=== PATIENT | male | born 1975 | race Caucasian/White ===

== ENCOUNTER 2017-05-30 12:58 | Inpatient (IN) ==
[2017-05-30] MEDS ORDERED: *HR* LORazepam 2 MG/ML VIAL IVP ONE (13:03)
[2017-05-30] MEDS ORDERED: 0.9 % Sodium Chloride 1,000 ML IVC ONE ×2 (13:03→13:40)
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
[2017-05-30 13:17] LABS: Basophils # 0.1 K/mcL (0.0-0.2); Basophils % 0.4 %; Eosinophils # 0.1 K/mcL (0.0-0.6); Eosinophils % 0.8 %; Hematocrit 45.9 % (37.5-50.1); Hemoglobin 14.5 g/dL (12.9-16.9); Immature Granulocytes % 1.4 % (0-4); Lymphocytes # 2.7 K/mcL (0.6-4.6); Lymphocytes % 24.3 %; Mean Corpuscular HGB Conc 31.6 g/dL (31.6-35.5); Mean Corpuscular Hemoglobin 27.8 pg (28.0-33.3); Mean Corpuscular Volume 88.1 fL (83.0-100.0); Mean Platelet Volume 9.2 fL (9.4-12.4); Monocytes # 0.9 K/mcL (0.0-1.3); Monocytes % 7.6 %; Neutrophils # 7.4 K/mcL (1.6-8.9); Platelet Count 211 K/mcL (140-400); Red Blood Count 5.21 M/mcL (4.19-5.50); Red Cell Distribution Width 13.2 % (11.5-14.5); Segmented Neutrophils % 65.5 %
[2017-05-30 13:32] LABS: Alanine Aminotransferase 26 Units/L (0-55); Albumin 4.3 g/dL (3.5-5.0); Albumin/Globulin Ratio 1.3 (1.1-2.2); Alkaline Phosphatase 71 Units/L (38-126); Aspartate Amino Transferase 19 Units/L (5-34); BUN/Creatinine Ratio 13 (6-26); Bilirubin,Total 1.5 mg/dL (0.2-1.2); Blood Urea Nitrogen 25 mg/dL (8-26); Calcium 9.1 mg/dL (8.6-10.8); Carbon Dioxide 24 mEq/L (19-29); Chloride 102 mEq/L (98-109); Globulin 3.3 g/dL (2.4-3.5); Glucose 188 mg/dL (70-99); Osmolality,Calculated 299 (280-300); Potassium 4.3 mEq/L (3.5-4.5); Sodium 140 mEq/L (136-145); Total Protein 7.6 g/dL (6.0-8.3); eGFR For African Americans 48 (> 60); eGFR For Non-African Americans 40 (> 60)
[2017-05-30 13:48] LABS: Acetaminophen < 1.0 mcg/mL (10-30); Ethanol < 10 mg/dL (0-10); Salicylate < 5.0 mg/dL (15-30)
[2017-05-30 14:13] LABS: Bilirubin,Urine Negative (Negative); Blood,Urine Negative (Negative); Clarity,Urine Clear (Clear); Color,Urine Yellow (Yellow); Glucose,Urine (UA) Normal (Normal); Ketones,Urine Negative (Negative); Leukocyte Esterase,Urine Negative (Negative); Nitrite,Urine Negative (Negative); PH,Urine 5.5 pH Units (5.0-8.0); Protein,Urine 30 mg/dL (Neg-Trace); Specific Gravity,Urine 1.029 (1.010-1.025); Urobilinogen,Urine Normal (Normal)
[2017-05-30 14:15] LABS: Bacteria,Urine None Seen per hpf (None-Few); Squamous Epithelial Cell,Urine Many per lpf (None-Few)
[2017-05-30 14:19] LABS: Amphetamine Screen,Urine Positive ng/mL (Cutoff=1000); Barbiturate Screen,Urine Positive ng/mL (Cutoff=200); Benzodiazepines Screen,Urine Positive ng/mL (Cutoff=200); Cannabinoid Screen,Urine Negative ng/mL (Cutoff = 50); Cocaine Screen,Urine Positive ng/mL (Cutoff= 300); Opiate Screen,Urine Positive ng/mL (Cutoff=300); Phencyclidine Screen,Urine Negative ng/mL (Cutoff=25)
--- NOTE | 2017-05-30 14:21 | Emergency Department Note ---
START Narrative - START START: I examined this patient and my medical decision-making was reviewed with the Resident Physician. I agree with the documented findings, disposition and treatment plan as described except to the extent set forth below. 41-year-old male presents emergency room for altered mental status. Initial call was for a possible drug overdose with heroin or fentanyl. Patient later admitted that he been using cocaine overnight. He also had moments of confusion where he would scream out and then stop. His rectal temp was found to be 98 degrees Fahrenheit but I felt this was not done in air as this would not coincide with his picture or presentation. They did place him on a bear hugger as well as warmed IV fluids. His temperature did normalize. Workup is still pending at this time. Patient will need to be admitted to the hospital. Critical care time approximately 35 minutes. Time spent in medical management as well as workup of this patient who presented with altered mental status and hypothermia.
[2017-05-30 14:33] LABS: Granular Casts,Urine Few per lpf (None Seen); Hyaline Casts,Urine Moderate per lpf (None-Few); Mucus,Urine Many (Few)
[2017-05-30 14:34] LABS: Thyroid Stimulating Hormone 2.482 mcIU/mL (0.350-4.840)
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
[2017-05-30] MEDS ORDERED: Naloxone 0.4 MG/ML INJ IVP PRN (16:43)
[2017-05-30] MEDS ORDERED: Ondansetron 4 MG/2 ML VIAL IVP PRN (16:43)
[2017-05-30] MEDS ORDERED: Acetaminophen 325 MG TABLET PO PRN (16:43)
[2017-05-30] MEDS ORDERED: 0.9 % Sodium Chloride 1,000 ML ONE (16:56)
[2017-05-30] MEDS ORDERED: Vancomycin 1,750 MG in D5% in Water 250 ML IVPB SCH (17:00)
[2017-05-30] MEDS ORDERED: *HR* Metoprolol 5 MG/5 ML VIAL IVP SCH (17:00)
[2017-05-30] MEDS: 0.9 % Sodium Chloride 1,000 ML IVC SCH ×3 (17:06→19:12)
[2017-05-30] MEDS ORDERED: *HR* LORazepam 2 MG/ML VIAL IVP PRN ×3 (18:19)
[2017-05-30 18:28] LABS: Hemoglobin A1C 4.8 %
[2017-05-30] MEDS: Vancomycin 1,750 MG in D5% in Water 500 ML IVPB SCH (19:12)
[2017-05-30] MEDS: *HR* Heparin 5,000 UNIT/ML VIAL SQ SCH (22:09)
[2017-05-30] MEDS ORDERED: *HR* Metoprolol 5 MG/5 ML VIAL IVP PRN (23:47)
[2017-05-31] MEDS: Piperacillin/Tazobactam 3.375 GM in D5% in Water (Mini-Bag+) 100 ML IVPB SCH ×3 (00:04→17:03)
[2017-05-31 01:29] LABS: Basophils % 0.2 %; Eosinophils # 0.1 K/mcL (0.0-0.6); Eosinophils % 0.8 %; Hematocrit 35.8 % (37.5-50.1); Immature Granulocytes % 0.4 % (0-4); Lymphocytes # 2.2 K/mcL (0.6-4.6); Lymphocytes % 19.6 %; Mean Corpuscular HGB Conc 32.1 g/dL (31.6-35.5); Mean Corpuscular Hemoglobin 27.7 pg (28.0-33.3); Mean Corpuscular Volume 86.3 fL (83.0-100.0); Mean Platelet Volume 9.6 fL (9.4-12.4); Monocytes # 1.1 K/mcL (0.0-1.3); Monocytes % 9.5 %; Neutrophils # 7.9 K/mcL (1.6-8.9); Platelet Count 170 K/mcL (140-400); Red Blood Count 4.15 M/mcL (4.19-5.50); Red Cell Distribution Width 13.2 % (11.5-14.5); Segmented Neutrophils % 69.5 %
[2017-05-31 01:31] LABS: Hemoglobin 11.5 g/dL (12.9-16.9)
[2017-05-31 01:42] LABS: Alanine Aminotransferase 16 Units/L (0-55); Albumin/Globulin Ratio 1.2 (1.1-2.2); Alkaline Phosphatase 52 Units/L (38-126); Aspartate Amino Transferase 13 Units/L (5-34); BUN/Creatinine Ratio 16 (6-26); Blood Urea Nitrogen 16 mg/dL (8-26); Calcium 7.8 mg/dL (8.6-10.8); Carbon Dioxide 26 mEq/L (19-29); Chloride 108 mEq/L (98-109); Globulin 2.5 g/dL (2.4-3.5); Glucose 97 mg/dL (70-99); Magnesium 1.9 mg/dL (1.6-2.6); Osmolality,Calculated 289 (280-300); Phosphorous 3.3 mg/dL (2.3-4.7); Potassium 3.8 mEq/L (3.5-4.5); Sodium 139 mEq/L (136-145); eGFR For African Americans > 60 (> 60); eGFR For Non-African Americans > 60 (> 60)
[2017-05-31 01:43] LABS: Total Protein 5.5 g/dL (6.0-8.3)
[2017-05-31] MEDS: Vancomycin 1,750 MG in D5% in Water 500 ML IVPB SCH ×2 (05:56→17:03)
[2017-05-31] MEDS: *HR* Heparin 5,000 UNIT/ML VIAL SQ SCH (05:56)
[2017-05-31] MEDS: Pantoprazole 40 MG VIAL IVP SCH (08:15)
--- NOTE | 2017-05-31 08:16 | Pulmonology Consult Note ---
Date of Encounter: 05/31/17 Time of Encounter: 08:15 Assessment and Plan (1) Hypotension Current Visit: Yes Status: Acute 41-year-old gentleman admitted after drug overdose with hypotension which is likely a manifestation of Lyme depletion along with A. fib with RVR. I do not think this represents shock physiology and doubt that it is related to acute infection. On my examination in the room, his mean arterial pressure was 71 with blood pressure 112/70 he remains in A. fib but was rate controlled when I saw him. His urine tox screen was notable for polysubstances including barbiturates cocaine and amphetamines narcotics clearly this cocktail could precipitate cardiac arrhythmia which I think is the most likely explanation. Concerning however is his consistent use of illicit substances including cocaine do put him at risk for cardiotoxicity and so an echocardiogram is a reasonable study to order at this time. The standpoint of rate control he has been responding to intermittent boluses of beta jameson. I suspect that over the course of the day a low-dose marce blocking agent such as metoprolol could be added to his regimen. From The standpoint of antimicrobials feel that empiric antimicrobial coverage is reasonable I would likely de-escalate over the next 24 hours unless there is culture positive were clear evidence of infection which I do not see based upon his workup thus far. He is on a couple of liters of supplemental nasal cannula O2 which can likely be weaned down to room air as he is currently saturating in the high 90s. This is probably a product of pulmonary edema and atelectasis. His acute kidney injury which was likely secondary to prerenal azotemia has resolved with administration of intravenous fluids. While he still has a fair amount of insensible loss I would be cautious about the continuation of high rate of crystalloid infusion given underlying atrial fibrillation and evidence of pulmonary edema on chest radiograph. Is concerned about intravascular volume depletion I would recommend bolusing crystalloid on an as-needed basis. I recommend chemical DVT prophylaxis while inpatient unless other contraindication arises. He will need a social service consult prior to discharge for determination of inpatient outpatient drug detoxification and development of more positive stress coping skills Currently he is in the stepdown unit and this is an appropriate level of monitoring for his medical acuity and I will defer to the primary medicine service for continuation of excellent management. Thank you for this consult please call back with questions or should change in clinical course arise Qualifiers: Hypotension type: other hypotension type Qualified Code(s): I95.89 - Other hypotension (2) Acute kidney injury Current Visit: Yes Status: Acute (3) Atrial fibrillation with RVR Current Visit: Yes Status: Acute (4) DVT prophylaxis Current Visit: Yes Status: Acute (5) Drug overdose Current Visit: Yes Status: Acute Qualifiers: Encounter type: initial encounter Injury intent: undetermined intent Qualified Code(s): T50.904A - Poisoning by unspecified drugs, medicaments and biological substances, undetermined, initial encounter History of Present Illness Consult date: 05/31/17 Requesting physician: Callum Gonzalez Reason for consult: other (Overdose) Chief complaint: Drug overdose History of present illness: 31-year-old [place] past medical history of polysubstance abuse was found obtunded by his family members charted by drug paraphernalia was given Narcan with some improvement and obtundation he reports to have taken "cocaine" but they have been laced with other drugs. Although he has abused opiates in the past he says he has not been abusing them on a routine basis as of late but has been using Suboxone that he is able to purchase off the [employer] market. On admission was noted to have acute kidney injury and mild elevation in lactate which both of which have resolved after administration of IV fluids he was started on empiric antimicrobial coverage for concern of sepsis noted to be in atrial fibrillation with rapid ventricular response borderline hypotension over the last 12 hours although mean arterial pressure has generally been greater than 60 his urine output remains appropriate he is now awake and alert able to interact with all my examination and he is quite appropriate Past Med Surg Social Fam HX - Past Medical History Medical history: no medical history Psychiatric history: no psych history - Past Surgical History Surgical History: non-contributory - Social History Smoking Status: Never smoker Smokeless Tobacco Status: No Alcohol use: rarely Drug use: none Medications and Allergies No Known Home Drugs 05/30/17 [History] Allergies No Known Allergies Allergy (Verified 05/12/17 17:41) All Systems: A 10-system review of systems was performed and is negative for pertinent findings except as documented above in the HPI. Physical Examination Vital Signs: Vital Signs, Last 4 Hours Temp Pulse Resp BP Pulse Ox 05/31/17 07:40 98.3 F 93 18 103/54 95 General appearance: no acute distress Eyes: nonicteric ENT: oropharynx dry Neck: supple Inspection: normal Auscultation: bilateral: rales Cardiovascular: irregular rhythm Gastrointestinal: normoactive bowel sounds, soft, non-tender Integumentary: normal Extremities: no cyanosis, no edema, no clubbing, pink and warm, no ischemia or petechiae Musculoskeletal: no deformities normal mental status, non-focal exam mood appropriate Results - Laboratory Findings CBC and BMP: 05/31/17 01:00 05/31/17 01:00 Abnormal lab findings: Abnormal lab results WBC 11.3 K/mcL (4.3-11.1) H 05/31/17 01:00 RBC 4.15 M/mcL (4.19-5.50) L 05/31/17 01:00 Hgb 11.5 g/dL (12.9-16.9) L D 05/31/17 01:00 Hct 35.8 % (37.5-50.1) L 05/31/17 01:00 MCH 27.7 pg (28.0-33.3) L 05/31/17 01:00 POC Glucose 152 (58-89) H 05/30/17 13:16 Calcium 7.8 mg/dL (8.6-10.8) L 05/31/17 01:00 Creatine Kinase 222 Units/L (30-200) H 05/30/17 17:21 Troponin I 0.04 ng/mL (0-0.03) H* 05/31/17 05:29 Serum Total Protein 5.5 g/dL (6.0-8.3) L D 05/31/17 01:00 Albumin 3.0 g/dL (3.5-5.0) L D 05/31/17 01:00 Ur Specific [place] 1.029 (1.010-1.025) H 05/30/17 14:05 Urine Protein 30 mg/dL (Neg-Trace) H 05/30/17 14:05 Urine Microscopic RBC 5-15 per hpf (0-3) H 05/30/17 14:05 Urine Microscopic WBC 3-5 per hpf (0-3) H 05/30/17 14:05 Ur Squamous Epith Cells Many per lpf (None-Few) H 05/30/17 14:05 Hyaline Casts Moderate per lpf (None-Few) H 05/30/17 14:05 Granular Casts Few per lpf (None Seen) H 05/30/17 14:05 Urine Mucus Many (Few) H 05/30/17 14:05 Salicylates < 5.0 mg/dL (15-30) L 05/30/17 13:07 Urine Opiates Screen Positive ng/mL (Dgcsff=338) H 05/30/17 14:05 Acetaminophen < 1.0 mcg/mL (10-30) L 05/30/17 13:07 Ur Barbiturates Screen Positive ng/mL (Mttowt=571) H 05/30/17 14:05 Ur Amphetamines Screen Positive ng/mL (Lapuck=0729) H 05/30/17 14:05 U Benzodiazepines Scrn Positive ng/mL (Wrjxnp=901) H 05/30/17 14:05 Urine Cocaine Screen Positive ng/mL (Cutoff= 300) H 05/30/17 14:05 - Diagnostic Findings Chest x-ray: report reviewed, image reviewed - Clinical Findings Intake & Output: Intake & Output 05/30/17 05/31/17 05/31/17 23:59 07:59 15:59 Intake Total 1500 / 1500 2100 / 2100 Output Total 1100 / 1100 950 / 950 Balance 400 / 400 1150 / 1150 Weight 112.6 kg Consult Discharge Plan - Plan Referrals: NONE,PCP [Primary Care Provider] -
[2017-05-31] MEDS: 0.9 % Sodium Chloride 1,000 ML IVC SCH ×2 (08:17→17:08)
--- NOTE | 2017-05-31 10:44 | Cardiology Consult Note ---
Date of Encounter: 05/31/17 Time of Encounter: 11:30 Assessment and Plan (1) Chest pain Current Visit: Yes Status: Acute Some typical features specifically, exertional nature, of chest pain. He has CV RF of significant family history and illicit drug use - stimulant/cocaine. Stress test for risk stratification. Qualifiers: Chest pain type: precordial pain Qualified Code(s): R07.2 - Precordial pain (2) Atrial fibrillation with RVR Current Visit: Yes Status: Acute CHADsvasc - 0. TSH normal. TTE ordered. Likely exacerbated by cocaine/ stimulant use. Family does not appear to think he will seek adequate treatment for his drug use, will utilize cardizem for rate control over BB. Aspirin will be given, heparin IV while in the hospital. (3) Drug overdose Current Visit: Yes Status: Acute counseled cessation Qualifiers: Encounter type: initial encounter Injury intent: undetermined intent Qualified Code(s): T50.904A - Poisoning by unspecified drugs, medicaments and biological substances, undetermined, initial encounter Discussion w patient/family: The assessment and plan as outlined above was discussed with the patient and/or family members who expressed understanding and agreement. All questions were answered. Thank you for involving us in the care of your patient. Please call with any questions. History of Present Illness Consult date: 05/31/17 Consult reason: atrial fibrillation Chief complaint: chest pain History of present illness: Mr. Amado is a 41 year old male with no previous cardiac history presents with a month history of worsening moderate intensity left sided chest discomfort described as sharp, exacerbated by physical activity and improved with rest. It can radiate down left arm. It is associated with mild dyspnea. He notes it has been worsening in frequency and intensity. It is not improved or brought on by palpation of the area. He does use illicit drugs including cocaine. Additionally he was found to be in AF RVR on presentation. He is currently in it but minimally symptomatic with fluttering. No definite history of syncope but he has had blackouts with his drug use. Past Med Surg Social Fam HX - Past Medical History Medical history: no medical history Psychiatric history: no psych history - Past Surgical History Surgical History: non-contributory - Social History Smoking Status: Never smoker Smokeless Tobacco Status: No Alcohol use: rarely Drug use: none Medications and Allergies No Known Home Drugs 05/30/17 [History] Allergies No Known Allergies Allergy (Verified 05/12/17 17:41) All Systems Review: A 10-system review of systems was performed and is negative for pertinent findings except as documented above in the HPI. - Constitutional Constitutional: no chills, no fever(s) - EENT Eyes: no blurred vision, no loss of vision Nose, mouth and throat: no bleeding gums, no epistaxis - Cardiovascular Cardiovascular: chest pain with exertion, palpitations - Respiratory Respiratory: no hemoptysis, no wheezing - Gastrointestinal Gastrointestinal: no hematemesis, no hematochezia - Genitourinary Genitourinary: no hematuria, no nocturia - Musculoskeletal Musculoskeletal: no abnormal gait, no myalgias - Integumentary Integumentary: no erythema, no rash - Neurological Neurological: no abnormal speech, no loss of vision - Psychiatric Psychiatric: no hallucinations, no panic attacks - Hematological/Lymphatic Hematologic/Lymphatic: no easy bleeding, no easy bruising Physical Examination Vital Signs, Last 4 Hours Temp Pulse Resp BP Pulse Ox 05/31/17 08:42 102 05/31/17 08:39 112 18 112/74 98 05/31/17 08:28 95 05/31/17 07:40 98.3 F 93 18 103/54 95 General: Conversant HEENT: Atraumatic Neck: No JVD Cardiac: Reg Rate and Rhythm Lungs: Normal Breath Sounds Neuro: Alert and responsive Skin: No rashes noted on visualized skin Musculoskeletal: No Chest Wall Tenderness Extremities: No Edema Results 05/31/17 01:00 05/31/17 01:00 Lab Results 05/30/17 05/30/17 05/31/17 17:21 23:13 01:00 WBC 11.3 H Hgb 11.5 L D Hct 35.8 L Plt Count 170 Sodium Potassium Chloride Carbon Dioxide BUN Creatinine Glucose Calcium Magnesium Total Bilirubin AST ALT Alkaline Phosphatase Troponin I 0.06 H* 0.03 05/31/17 05/31/17 01:00 05:29 WBC Hgb Hct Plt Count Sodium 139 Potassium 3.8 Chloride 108 Carbon Dioxide 26 BUN 16 Creatinine 0.97 Glucose 97 Calcium 7.8 L Magnesium 1.9 Total Bilirubin 1.0 AST 13 ALT 16 Alkaline Phosphatase 52 Troponin I 0.04 H* - EKG Interpretation EKG results cardiology: personally reviewed (afib rvr) Consult Discharge Plan - Plan Referrals: NONE,PCP [Primary Care Provider] -
[2017-05-31] MEDS ORDERED: *HR* Heparin 5,000 UNIT/ML VIAL IVP PRN ×2 (11:23)
[2017-05-31] MEDS ORDERED: *HR* Heparin 5,000 UNIT/ML VIAL IVP ONE (11:23)
[2017-05-31 11:56] LABS: Hematocrit 44.5 % (37.5-50.1); Hemoglobin 14.2 g/dL (12.9-16.9); Mean Corpuscular HGB Conc 31.9 g/dL (31.6-35.5); Mean Corpuscular Hemoglobin 27.4 pg (28.0-33.3); Mean Corpuscular Volume 85.9 fL (83.0-100.0); Mean Platelet Volume 9.6 fL (9.4-12.4); Platelet Count 190 K/mcL (140-400); Red Blood Count 5.18 M/mcL (4.19-5.50)
[2017-05-31 12:03] LABS: INR 1.1; Prothrombin Time 11.9 Seconds (9.4-12.1)
[2017-05-31 12:06] LABS: Activated Partial Thrombo Time 29.1 Seconds (26.0-36.0)
[2017-05-31] MEDS: Heparin 25,000 UNIT/500 ML D5W 25,000 UNIT/500 ML MLS IVC SCH (12:46)
--- NOTE | 2017-05-31 15:11 | Internal Med Progress Note ---
Date of Encounter: 05/31/17 Time of Encounter: 15:09 - Assessment and plan (1) Drug overdose Current Visit: Yes Status: Acute Assessment and plan: Admitted with drug overdose. Presently his blood pressure/heart rate is in stable condition. Patient's family at bedside. Still drowsy but responds to oral commands. 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 Patient is presently on a heparin drip: Started by cardiology. His heart rate is between 90 and 105. We will follow recommendations from cardiology. (3) Acute kidney injury Current Visit: Yes Status: Acute Assessment and plan: Upon admission his patient creatinine was 1.8. Patient received IV fluids and now creatinine is less than 1. Presently on antibiotics for possible underlying sepsis We will monitor closely. (4) DVT prophylaxis Current Visit: Yes Status: Acute Assessment and plan: Heparin drip - Subjective Interval history: seen and examined. [email or web address]\rviewed. denies chest pain, SOB Abdominal pain. - Constitutional Vitals: Temp Pulse Resp BP Pulse Ox 98.2 F 118 18 113/75 97 05/31/17 12:10 05/31/17 12:10 05/31/17 12:10 05/31/17 12:10 05/31/17 12:10 General appearance: Present: A&O X 3, morbidly obese, pleasant - Head Head exam: Present: atraumatic, normocephalic - Eye Eye exam: Present: PERRL, conjuntiva pink, sclera anicteric Pupils: Present: PERRL - Neck Neck exam general surgery: Present: supple, trachea midline. Absent: lymphadenopathy - Respiratory Respiratory exam: Present: CTAB. Absent: accessory muscle use, rales, rhonchi, wheezes - Cardiovascular Cardiovascular exam: Present: RRR, +S1, +S2. Absent: diastolic murmur, gallop, rubs, systolic murmur - GI/Abdominal GI/Abdominal exam: Present: normal bowel sounds, soft, no peritoneal signs. Absent: distended, tenderness - Extremities Exam Extremities exam: Present: warm, radial pulses palpable and symetrical. Absent : calf tenderness, cyanotic, pedal edema - Neurological Exam Neurological exam: Present: CN II-XII intact, oriented X3, no focal deficits. Absent: pronater drift, facial droop, speech deficit - Skin Skin exam: Present: dry, intact Internal Medicine: Result - Labs CBC & Chem 7: 05/31/17 11:39 05/31/17 01:00 Labs: Short CBC 05/31/17 05/31/17 Range/Units 01:00 11:39 WBC 11.3 H 9.8 (4.3-11.1) K/mcL Hgb 11.5 L D 14.2 D (12.9-16.9) g/dL Hct 35.8 L 44.5 (37.5-50.1) % Plt Count 170 190 (140-400) K/mcL Neutrophils # 7.9 (1.6-8.9) K/mcL BMP 05/31/17 01:00 Sodium 139 Potassium 3.8 Chloride 108 Carbon Dioxide 26 BUN 16 Creatinine 0.97 Glucose 97 Calcium 7.8 L Cardiac Enzymes 05/30/17 05/30/17 05/31/17 Range/Units 17:21 23:13 05:29 Troponin I 0.06 H* 0.03 0.04 H* (0-0.03) ng/mL Liver Function 05/31/17 Range/Units 01:00 Total Bilirubin 1.0 (0.2-1.2) mg/dL AST 13 (5-34) Units/L ALT 16 (0-55) Units/L Alkaline Phosphatase 52 (38-126) Units/L Albumin 3.0 L D (3.5-5.0) g/dL - ABG Interpretation ABG results: PT/INR, D-dimer PT 11.9 Seconds (9.4-12.1) 05/31/17 11:39 - Impressions Impressions Chest CT 05/31/17 07:04 IMPRESSION: Multifocal bilateral airspace opacification with ground-glass opacity and some interlobular septal thickening. Findings are suggestive of pneumonia amount. Pulmonary edema or hemorrhage could have this appearance as well. There are few right lung subcentimeter nodules, largest measuring 7 mm See below recommendation. RECOMMENDATIONS: Fleischner Society guidelines for follow-up and management of incidentally detected pulmonary nodules: Multiple Solid Nodules: Nodule size equals 6-8 mm In a low-risk patient, CT at 3-6 months, then consider CT at 18-24 months. In a high-risk patient, CT at 3-6 months, then CT at 18-24 months. - Low risk patients include individuals with minimal or absent history of smoking and other known risk factors. - High risk patients include individuals with a history or smoking or known risk factors. Radiology 2017 http://pubs.rsna.org/doi/full/10.1148/radiol.[email or web address] D/ / Yuliana Patel Cha, MD / Yuliana Patel Cha, MD Interpreting Provider: Yuliana Patel Cha, MD Consult Discharge Plan - Plan Referrals: NONE,PCP [Primary Care Provider] -
--- NOTE | 2017-05-31 18:55 | Electrocardiograph Report ---
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
--- NOTE | 2017-05-31 18:59 | Electrocardiograph Report ---
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
[2017-06-01] MEDS: Piperacillin/Tazobactam 3.375 GM in D5% in Water (Mini-Bag+) 100 ML IVPB SCH ×3 (00:30→15:22)
[2017-06-01 01:02] LABS: Basophils % 0.5 %; Eosinophils # 0.3 K/mcL (0.0-0.6); Eosinophils % 3.8 %; Hematocrit 37.1 % (37.5-50.1); Immature Granulocytes % 0.4 % (0-4); Lymphocytes # 2.9 K/mcL (0.6-4.6); Mean Corpuscular HGB Conc 33.2 g/dL (31.6-35.5); Mean Corpuscular Hemoglobin 28.5 pg (28.0-33.3); Mean Corpuscular Volume 85.9 fL (83.0-100.0); Monocytes # 0.7 K/mcL (0.0-1.3); Monocytes % 8.9 %; Neutrophils # 3.5 K/mcL (1.6-8.9); Platelet Count 153 K/mcL (140-400); Red Blood Count 4.32 M/mcL (4.19-5.50); Red Cell Distribution Width 12.9 % (11.5-14.5); Segmented Neutrophils % 47.4 %
[2017-06-01 01:04] LABS: Hemoglobin 12.3 g/dL (12.9-16.9)
[2017-06-01 01:16] LABS: Alanine Aminotransferase 14 Units/L (0-55); Albumin 2.8 g/dL (3.5-5.0); Alkaline Phosphatase 61 Units/L (38-126); Aspartate Amino Transferase 11 Units/L (5-34); BUN/Creatinine Ratio 13 (6-26); Bilirubin,Total 0.4 mg/dL (0.2-1.2); Blood Urea Nitrogen 13 mg/dL (8-26); Calcium 7.9 mg/dL (8.6-10.8); Carbon Dioxide 27 mEq/L (19-29); Chloride 111 mEq/L (98-109); Globulin 2.7 g/dL (2.4-3.5); Glucose 124 mg/dL (70-99); Osmolality,Calculated 298 (280-300); Potassium 3.6 mEq/L (3.5-4.5); Sodium 143 mEq/L (136-145); Total Protein 5.5 g/dL (6.0-8.3); eGFR For African Americans > 60 (> 60); eGFR For Non-African Americans > 60 (> 60)
[2017-06-01] MEDS: 0.9 % Sodium Chloride 1,000 ML IVC SCH (02:06)
[2017-06-01] MEDS: Heparin 25,000 UNIT/500 ML D5W 25,000 UNIT/500 ML MLS IVC SCH ×2 (05:19→21:28)
[2017-06-01] MEDS: Vancomycin 1,750 MG in D5% in Water 500 ML IVPB SCH (05:56)
[2017-06-01] MEDS: Vancomycin 2,000 MG in D5% in Water 500 ML IVPB SCH ×2 (06:10→17:52)
[2017-06-01] MEDS ORDERED: Regadenoson 0.4 MG/5 ML SYRINGE IVP ONE ×3 (06:13→12:28)
--- NOTE | 2017-06-01 08:40 | Cardiology Progress Note ---
Date of Encounter: 06/01/17 Time of Encounter: 08:00 Assessment and Plan (1) Atrial fibrillation with RVR Current Visit: Yes Status: Acute CHADsvasc - 0. TSH normal. TTE ordered. Likely exacerbated by cocaine/ stimulant use. Family does not appear to think he will seek adequate treatment for his drug use. Avoid betablocker. Spontaneously converted to NSR yesterday evening ~2230. Will d/c cardizem gtt, started 120 mg CD daily. TTE pending. Continue heparin gtt as inpatient, recommend asa 81 mg daily as outpatient. (2) Drug overdose Current Visit: Yes Status: Acute counseled cessation Qualifiers: Encounter type: sequela Injury intent: undetermined intent Qualified Code (s): T50.904S - Poisoning by unspecified drugs, medicaments and biological substances, undetermined, sequela (3) Chest pain Current Visit: Yes Status: Acute Minimal adynamic troponin elevation in the setting of AF with RVR and cocaine OD ; likely demand ischemia. Some typical features specifically, exertional nature, of chest pain. He has CV RF of significant family history and illicit drug use - stimulant/ cocaine. Stress test for risk stratification--planned for this AM Further recommendations to follow. Qualifiers: Chest pain type: precordial pain Qualified Code(s): R07.2 - Precordial pain Discussion w patient/family: The assessment and plan as outlined above was discussed with the patient and/or family members who expressed understanding and agreement. All questions were answered. Thank you for involving us in the care of your patient. Please call with any questions. The patient will be discussed and reviewed with Dr. Gian Gaxiola; changes to be made accordingly. Subjective Principal diagnosis: Drug overdose; afib w/RVR Interval history: Seen and examined earlier this AM. Now SR upon exam, HR 90's. Appears to have converted to NSR yesterday evening around 2230. Reports intermittent episodes of shortness of breath overnight, no chest pain/ discomfort. Plan for Nuclear stress test today, he is agreeable. Objective Vital Signs, Last 4 Hours Temp Pulse Resp BP Pulse Ox 06/01/17 07:38 98.1 F 92 16 123/89 98 06/01/17 06:00 86 135/85 06/01/17 05:08 98.0 F 94 16 124/71 98 06/01/17 05:00 93 124/71 General: Conversant HEENT: Atraumatic, Normocephaly Cardiac: Reg Rate and Rhythm, Normal S1 and S2 Lungs: Normal Breath Sounds Neuro: Alert and responsive Abdomen: Soft Skin: No rashes noted on visualized skin Musculoskeletal: No Chest Wall Tenderness Extremities: No Edema, Normal Pulses Results 06/01/17 00:47 06/01/17 00:47 Lab Results 06/01/17 06/01/17 06/01/17 00:47 00:47 00:47 WBC 7.4 Hgb 12.3 L D Hct 37.1 L Plt Count 153 INR APTT 72.0 H Sodium 143 Potassium 3.6 Chloride 111 H Carbon Dioxide 27 BUN 13 Creatinine 0.97 Glucose 124 H Calcium 7.9 L Total Bilirubin 0.4 AST 11 ALT 14 Alkaline Phosphatase 61 Active Medications Acetaminophen (Tylenol) 650 mg PO Q6HR PRN PRN Reason: Mild Pain or fever>100.4 Stop: 11/29/17 16:44 Aspirin (Aspirin) 81 mg PO DAILY [facility] Stop: 12/01/17 09:01 Diltiazem HCl (Cardizem Cd) 120 mg PO DAILY [facility] Stop: 12/01/17 09:01 Heparin Sodium (Porcine) (Heparin) 7,900 unit 70 unit/kg (7900 unit) IVP Q6HR PRN PRN Reason: SEE COMMENTS Stop: 11/30/17 11:24 Heparin Sodium (Porcine) (Heparin) 3,900 unit 35 unit/kg (3900 unit) IVP Q6H PRN PRN Reason: SEE COMMENTS Stop: 11/30/17 11:24 Piperacillin Sod/Tazobactam (Sod 3.375 gm/ Dextrose) 100 mls @ 25 mls/hr IVPB Q8HR [facility] Stop: 11/30/17 00:01 Last Admin: 06/01/17 00:30 Dose: 25 mls/hr Sodium Chloride (0.9 % Sodium Chloride) 1,000 mls @ 125 mls/hr IVC .Q8H [facility] Stop: 11/29/17 19:01 Last Admin: 06/01/17 02:06 Dose: 125 mls/hr Heparin Sodium/Dextrose (Heparin 25,000 Unit/500 Ml D5w) 25,000 unit in 500 mls @ 31.528 mls/hr IVC .[id number] THIERRY; 14 UNIT/KG/HR PRN Reason: Protocol Stop: 11/30/17 11:31 Last Admin: 06/01/17 05:19 Dose: 14 unit/kg/hr, 31.528 mls/hr Vancomycin HCl 2,000 mg/ (Dextrose) 500 mls @ 250 mls/hr IVPB Q12H [facility] Stop: 12/01/17 06:01 Last Admin: 06/01/17 06:10 Dose: 250 mls/hr Lorazepam (Ativan) 1 mg IVP Q1H PRN PRN Reason: Alcohol Withdrawal Stop: 11/29/17 18:20 Lorazepam (Ativan) 2 mg IVP Q4HR PRN PRN Reason: CIWA Score of 10-21 Stop: 11/29/17 18:20 Lorazepam (Ativan) 4 mg IVP Q4HR PRN PRN Reason: CIWA Score of 22-45 Stop: 11/29/17 18:20 Naloxone HCl (Narcan) 0.4 mg IVP Q2MIN PRN PRN Reason: Opioid Reversal Stop: 11/29/17 16:44 Ondansetron HCl (Zofran) 4 mg IVP Q8HR PRN PRN Reason: Nausea And Vomiting Stop: 11/29/17 16:44 Pantoprazole Sodium (Protonix) 40 mg IVP DAILY [facility] Stop: 11/30/17 09:01 Last Admin: 05/31/17 08:15 Dose: 40 mg - Imaging and Cardiology Stress Test: pending Echo: pending Other Results: 12 hour tele: avg HR=91. - EKG Interpretation EKG results cardiology: personally reviewed Consult Discharge Plan - Plan Referrals: NONE,PCP [Primary Care Provider] -
[2017-06-01] MEDS: Aspirin 81 MG TAB.CHEW PO SCH (08:41)
[2017-06-01] MEDS: Diltiazem CD (24hr) 120 MG CAPSULE PO SCH (08:41)
[2017-06-01] MEDS: Pantoprazole 40 MG VIAL IVP SCH (08:44)
--- NOTE | 2017-06-01 13:40 | Internal Med Progress Note ---
Date of Encounter: 06/01/17 Time of Encounter: 13:37 - Assessment and plan (1) Drug overdose Current Visit: Yes Status: Acute Assessment and plan: Admitted with drug overdose. Presently his blood pressure/heart rate is in stable condition. Patient's family at bedside. Still drowsy but responds to oral commands. 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 Patient claims that he is scared of needles and prefers to sleep for another then inject. Denies any intention to quit drugs. Was alert and awake. ICU team was on board and the recommendations appreciated. Presently his vital signs stable. Patient is no more hypothermic. Blood cultures negative so far Plan: Patient can transfer out of stepdown unit. If the blood cultures remain negative tomorrow, vancomycin can be discontinued. Patient will need PO antibiotics upon discharge. We will get social worker health services to evaluate him and will offer rehabilitation programs. Qualifiers: Encounter type: sequela Injury intent: undetermined intent Qualified Code (s): T50.904S - Poisoning by unspecified drugs, medicaments and biological substances, undetermined, sequela (2) Atrial fibrillation with RVR Current Visit: Yes Status: Acute Assessment and plan: New onset of atrial fibrillation with rapid ventricular rate. Patient is presently on a heparin drip: Started by cardiology. His heart rate is between 90 and 105. We will follow recommendations from cardiology. 06/01/2017 New-onset of atrial fibrillation. He was converted back to sinus last night. Cardiology on the board. Presently ongoing heparin drip. CHADsVasc score is 0. Noted that patient has a new onset of systolic congestive heart failure. Cardiology on the board. Noted that patient will be undergoing echocardiogram/stress test. Plan: Aspirin 81 mg on discharge. We will follow the recommendations from cardiology (3) Acute kidney injury Current Visit: Yes Status: Acute Assessment and plan: Upon admission his patient creatinine was 1.8. Patient received IV fluids and now creatinine is less than 1. Presently on antibiotics for possible underlying sepsis We will monitor closely. 06/01/2017 Acute kidney injury likely secondary to dehydration. Acute kidney injury completely resolved. (4) DVT prophylaxis Current Visit: Yes Status: Acute Assessment and plan: Heparin drip - Subjective Interval history: seen and examined. jorge\rviewed. denies chest pain, SOB Abdominal pain. 06/01/2017 Seen and examined. Chart reviewed. Patient is comfortably lying in the bed. Patient's girlfriend is at bedside. Patient denies chest pain, shortness of breath, abdominal pain, nausea, vomiting , diarrhea and dizziness. Patient can be transferred to in a telemetry floor. - Constitutional Vitals: Temp Pulse Resp BP Pulse Ox 98.2 F 66 18 127/82 98 06/01/17 11:37 06/01/17 11:42 06/01/17 11:37 06/01/17 11:37 06/01/17 11:37 General appearance: Present: A&O X 3, morbidly obese, pleasant - Head Head exam: Present: atraumatic, normocephalic - Eye Eye exam: Present: PERRL, conjuntiva pink, sclera anicteric Pupils: Present: PERRL - Neck Neck exam general surgery: Present: supple, trachea midline. Absent: lymphadenopathy - Respiratory Respiratory exam: Present: CTAB. Absent: accessory muscle use, rales, rhonchi, wheezes - Cardiovascular Cardiovascular exam: Present: RRR, +S1, +S2. Absent: diastolic murmur, gallop, rubs, systolic murmur - GI/Abdominal GI/Abdominal exam: Present: normal bowel sounds, soft, no peritoneal signs. Absent: distended, tenderness - Extremities Exam Extremities exam: Present: warm, radial pulses palpable and symetrical. Absent : calf tenderness, cyanotic, pedal edema - Neurological Exam Neurological exam: Present: CN II-XII intact, oriented X3, no focal deficits. Absent: pronater drift, facial droop, speech deficit - Skin Skin exam: Present: dry, intact Internal Medicine: Result - Labs CBC & Chem 7: 06/01/17 00:47 06/01/17 00:47 Labs: Short CBC 06/01/17 Range/Units 00:47 WBC 7.4 (4.3-11.1) K/mcL Hgb 12.3 L D (12.9-16.9) g/dL Hct 37.1 L (37.5-50.1) % Plt Count 153 (140-400) K/mcL Neutrophils # 3.5 (1.6-8.9) K/mcL BMP 06/01/17 00:47 Sodium 143 Potassium 3.6 Chloride 111 H Carbon Dioxide 27 BUN 13 Creatinine 0.97 Glucose 124 H Calcium 7.9 L Liver Function 06/01/17 Range/Units 00:47 Total Bilirubin 0.4 (0.2-1.2) mg/dL AST 11 (5-34) Units/L ALT 14 (0-55) Units/L Alkaline Phosphatase 61 (38-126) Units/L Albumin 2.8 L (3.5-5.0) g/dL - ABG Interpretation ABG results: PT/INR, D-dimer PT 11.9 Seconds (9.4-12.1) 05/31/17 11:39 Consult Discharge Plan - Plan Referrals: NONE,PCP [Primary Care Provider] - Amarilys Burkett DO [Resident] - 06/25/17 9:00 am
[2017-06-01] MEDS ORDERED: 0.9 % Sodium Chloride 1,000 ML IVC SCH (13:45)
--- NOTE | 2017-06-01 14:52 | Nuclear Medicine Stress Report ---
Regadenoson Nuclear Stress Name: Alon Amado Date of Study: 06/01/2017 Date: 1975 Ht: 72.0 in Medical Record#: [id number] Age: 41 Wt: 250.0 lb Gender: Male Order #: [id number] Location: [facility] Room: 10 Supervising Provider: Angie Wei CNP Reading Physician: Deanna Contreras DO Ordering Physician: Meng Torres MD Primary Care Physician: None Stress Technologist: Ursula Hopkins, STRADDLE BUGGY OPERATOR, CCT, CPFT Funeral Driver: Janie Durand Indications: Chest Pain, fluttering Impression: Perfusion imaging was negative for ischemia or infarct. Pharmacologic ECG was negative for ischemia at the level of heart rate achieved. Patient described chest pressure during pharmacologic stress - this can be a nonspecific finding. Recommend clinical correlation. Gated EF = 60%. LV is dilated. History: History of Smoking Stress Test Summary: Stress Test Type: Pharmacologic Baseline Information: Initial Heart Rate: 87 Blood Pressure: 130/80 Stress Information: Test Terminated Due to (primary): As per protocol Maximum Blood Pressure: 134/74 Maximum Heart Rate: 114 Percent Maximum Heart Rate Achieved: 64 Double Product: [id number] METS Reached: 1 Symptoms: Heaviness Nuclear Summary: SPECT myocardial perfusion imaging using Tc99m Sestamibi given intravenously was performed at rest and following cardiac stress testing. The resting images were obtained following initial dose of 9.8 mCi. Following stress an additional dose of 33.5 mCi was given at peak exercise or 30 seconds post regadenoson infusion. Medication Given: Time Medication Dose Units Route Findings: Stress Note * Resting ECG demonstrated normal sinus rhythm with diffuse nonspecific ST abnormalities. * Pharmacologic stress ECG is negative for ischemia at level of heart rate achieved. * No arrhythmias were noted during stress. * Patient described chest pressure. Hemodynamic responses * Normal hemodynamic responses to pharmacologic stress. Study Quality * Study quality was fair. Gated EF % * Gated EF = 60%. Left Ventricle * The left ventricle is dilated. TID * No evidence of transient ischemic dilatation. Lung Uptake * There is no evidence of increase lung uptake. NORMALS * Normal wall motion. PERFUSION * There is a small sized, mild intensity fixed perfusion defect involving the apex. Wall motion is normal. Findings represent artifact. * Other areas demonstrate normal rest and stress perfusion. Updated by Deanna Contreras on 06/01/2017 2:45:49 PM electronically signed on 06/01/2017 2:47:38 PM with status of Final
[2017-06-02] MEDS: Piperacillin/Tazobactam 3.375 GM in D5% in Water (Mini-Bag+) 100 ML IVPB SCH ×2 (00:11→08:32)
[2017-06-02 01:35] LABS: Basophils # 0.1 K/mcL (0.0-0.2); Basophils % 0.6 %; Eosinophils # 0.3 K/mcL (0.0-0.6); Eosinophils % 3.7 %; Hematocrit 39.5 % (37.5-50.1); Immature Granulocytes % 0.9 % (0-4); Lymphocytes # 2.9 K/mcL (0.6-4.6); Lymphocytes % 36.7 %; Mean Corpuscular HGB Conc 32.9 g/dL (31.6-35.5); Mean Corpuscular Hemoglobin 27.9 pg (28.0-33.3); Mean Corpuscular Volume 84.8 fL (83.0-100.0); Mean Platelet Volume 9.8 fL (9.4-12.4); Monocytes # 0.6 K/mcL (0.0-1.3); Monocytes % 7.9 %; Neutrophils # 3.9 K/mcL (1.6-8.9); Platelet Count 179 K/mcL (140-400); Red Blood Count 4.66 M/mcL (4.19-5.50); Red Cell Distribution Width 12.7 % (11.5-14.5); Segmented Neutrophils % 50.2 %
[2017-06-02 02:00] LABS: Alanine Aminotransferase 15 Units/L (0-55); Albumin 3.2 g/dL (3.5-5.0); Albumin/Globulin Ratio 1.1 (1.1-2.2); Alkaline Phosphatase 61 Units/L (38-126); Aspartate Amino Transferase 10 Units/L (5-34); BUN/Creatinine Ratio 11 (6-26); Bilirubin,Total 0.4 mg/dL (0.2-1.2); Blood Urea Nitrogen 10 mg/dL (8-26); Calcium 8.8 mg/dL (8.6-10.8); Carbon Dioxide 28 mEq/L (19-29); Chloride 112 mEq/L (98-109); Glucose 134 mg/dL (70-99); Osmolality,Calculated 301 (280-300); Potassium 3.5 mEq/L (3.5-4.5); Sodium 145 mEq/L (136-145); Total Protein 6.2 g/dL (6.0-8.3); eGFR For African Americans > 60 (> 60); eGFR For Non-African Americans > 60 (> 60)
[2017-06-02] MEDS: Vancomycin 2,000 MG in D5% in Water 500 ML IVPB SCH (06:06)
[2017-06-02] MEDS: Pantoprazole 40 MG VIAL IVP SCH (08:32)
[2017-06-02] MEDS: Aspirin 81 MG TAB.CHEW PO SCH (08:32)
[2017-06-02] MEDS: Diltiazem CD (24hr) 120 MG CAPSULE PO SCH (08:32)
[2017-06-02 11:02] VITALS: BP 128/81
--- NOTE | 2017-06-02 13:17 | Discharge Summary ---
Date of Encounter: 06/02/17 Time of Encounter: 11:00 - Discharge Diagnosis (1) Pneumonia Priority: Primary Status: Acute Qualifiers: Pneumonia type: aspiration pneumonia Qualified Code(s): J69.0 - Pneumonitis due to inhalation of food and vomit (2) Drug overdose Priority: Primary Status: Resolved Qualifiers: Encounter type: sequela Injury intent: undetermined intent Qualified Code (s): T50.904S - Poisoning by unspecified drugs, medicaments and biological substances, undetermined, sequela (3) Altered mental status Priority: Secondary Status: Resolved Qualifiers: Altered mental status type: disorientation Qualified Code(s): R41.0 - Disorientation, unspecified (4) Atrial fibrillation with RVR Priority: Secondary Status: Resolved (5) Septic shock Priority: Primary Status: Resolved (6) Acute kidney injury Priority: Secondary Status: Resolved (7) Chest pain Priority: Secondary Status: Resolved Qualifiers: Chest pain type: precordial pain Qualified Code(s): R07.2 - Precordial pain - Discharge Medications Prescriptions: Amoxicillin/Clavulanate [Augmentin] 875 mg PO BIDWM #14 tablet Aspirin 81 mg PO DAILY #30 Diltiazem CD (24hr) [Cardizem CD] 120 mg PO DAILY #30 Saccharomyces Boulardii [Florastor] 250 mg PO BID #14 capsule Home Medications: Amoxicillin/Clavulanate [Augmentin] 875 mg PO BIDWM #14 tablet 06/02/17 [Rx] Aspirin 81 mg PO DAILY #30 06/02/17 [Rx] Diltiazem CD (24hr) [Cardizem CD] 120 mg PO DAILY #30 06/02/17 [Rx] Saccharomyces Boulardii [Florastor] 250 mg PO BID #14 capsule 06/02/17 [Rx] Allergies/Adverse Reactions: Allergies No Known Allergies Allergy (Verified 05/12/17 17:41) Procedures/tests Complete & Pending: Procedures Performed prior 72 hours Category Date Time Status CT chest w con [CT] Routine Cat Scan 05/31/17 07:04 Completed NM jessie perf SPECT multi [NM] Routine Exams 06/01/17 08:28 Taken ECG 12 lead ECG [ECG] Routine Y 05/30/17 13:35 Completed EV echocardiogram Routine Y 05/31/17 12:00 Completed EV limited echocardiogram Routine Y 06/01/17 08:44 Completed SP pharm nuclear stress Routine Y 06/01/17 07:00 Completed Date of admission: 05/30/17 16:27 Primary care physician: PCP NONE Consults: 05/30/17 16:46 Consult to Export Freight Manager [CONS] Routine Reason for SW Consult: Assistance with resources Consult to Export Freight Manager [CONS] Routine Reason for SW Consult: Drug user. Has a 2 yr old at home. 05/31/17 09:55 Consult to Pulmonology [CONS] Routine Consulting Provider: Pulm [facility] Lola Reason for Consult: OD, SADI, a. fib at rvr, hypotension concern for possible deterioration Call Completed: Yes 05/31/17 10:16 Consult to Cardiology [CONS] Routine Comment: Consulting Provider: Cardiology Lola Reason for Consult: Continuing A. Fib w/ rvr (new onset), but borderline hypotension. Septic shock, OD, polysubstance abuse, dehydration. Call Completed: Yes - Patient Status Disposition: Home, Self-Care Condition: Good Overall status at discharge: patient is back to baseline - Discharge Instructions Follow Up With: NONE,PCP [Primary Care Provider] - Amarilys Burkett DO [Resident] - 06/25/17 9:00 am Additional Instructions: Need to f/u with Cardiology and PCP in 1 week - Diet and Activity Activity: increase activity as tolerated Diet: low salt diet Hospital course: Mr. Amado is a 41 year old male with prior history of drug usage was brought the the hospital by EMS after being found unresponsive at home earlier in the day. The patient is arousable, but frequently falls asleep, so much of the history was obtained through chart review and speaking with the family. He takes suboxone as his only outpatient medication, but according to his charts was having an argument with his significant other that prompted him to spend the evening with some of his know-substance abusing friends yesterday evening. He was found minimally responsive and not breathing well at home the following morning by his girlfriend. Some attempts at rescue breathing was made prior to the arrival of EMS. He was given narcan at the scene that caused him to immediately wake. He had been screaming during transport, but when seen in the ED he was asleep, but arousable and slightly confused. After transfer to the floor, he was easily arousable, but would fall asleep easily. Patient was in shock with hypothermia, which seems to be multi factorial with multi lobular aspiration pneumonia, polysubstance abuse/drug overdose. Patient also went into atrial fibrillation with RVR. Patient was started on aggressive IV hydration and broad spectrum IV abx. His shock resolved on next day. For his Afib he was placed on Cardizem drip, and also started him on heparin drip for anti coagulation. Patient was evaluated by manager of recruiting. Patient complained about chest pain probably cocaine induced at this point to rule out any ischemic event patient went for a cardiac stress test which came back is negative for any ischemia. In his echocardiogram came back as within normal limits with LVEF 60%. Patient was converted to normal sinus rhythm yesterday, since then he stayed in normal sinus rhythm with oral Cardizem. So I am discharging him home in a stable condition today. Counseled the pt to quit doing drugs, SW offered him few drug reahb places, but pt refused to go to any rehab centers, he would like to try on his own. Spoke to pt's sister and explained to her about current care and discharge instructions. He does have multi lobular aspiration pneumonia, so sending him home on 7 more days PO Augmentin abx. - Time Spent with Patient Total time spent providing and/or coordinating discharge services: Greater than 30 minutes (Spent 45 minutes on this patient's discharge summary due to complex medical problems and patient needed a lot of education regarding discharge instructions) - Constitutional Vitals: Temp Pulse Resp BP Pulse Ox 98.5 F 72 16 128/81 96 06/02/17 10:59 06/02/17 10:59 06/02/17 10:59 06/02/17 10:59 06/02/17 10:59 General appearance: Present: A&O X 3, morbidly obese, pleasant - Neck Neck exam general surgery: Present: supple. Absent: lymphadenopathy, tenderness - Respiratory Respiratory exam: Present: decreased breath sounds. Absent: accessory muscle use, rales, respiratory distress, rhonchi, wheezes - Cardiovascular Cardiovascular exam: Present: RRR, +S1, +S2. Absent: diastolic murmur, gallop, rubs, systolic murmur - GI/Abdominal GI/Abdominal exam: Present: normal bowel sounds, soft, no peritoneal signs. Absent: distended, tenderness - Neurological Exam Neurological exam: Present: alert, oriented X3 - Psychiatric Psychiatric exam: Present: anxious
[2017-06-02] MEDS ORDERED: Aminoglycoside Consult 1 EACH MC ONE (13:37)
== END 2017-06-02 13:38 | disposition home or self-care (01) | DRG 816 ==
LOC: 2NNU 12:58 → EMEROO 12:58 → 2NNU 16:15
PROVIDERS: ADMIT Family Medicine; ATTEND Internal Medicine

== ENCOUNTER 2019-07-06 23:21 | Inpatient (IN) ==
[2019-07-07] MEDS ORDERED: Piperacillin/Tazobactam 3.375 GM in Water for inj. (sterile) 20 ML IVP ONE (00:07)
[2019-07-07] MEDS: 0.9 % Sodium Chloride 1,000 ML IVC SCH ×4 (00:21→02:17)
--- NOTE | 2019-07-07 00:43 | Emergency Department Note ---
Disposition Clinical Impression: Abscess of right arm, Right arm cellulitis Fever Qualifiers: Fever type: due to other condition Qualified Code(s): R50.81 - Fever presenting with conditions classified elsewhere Sepsis Qualifiers: Sepsis type: sepsis due to unspecified organism Sepsis acute organ dysfunction status: without acute organ dysfunction Qualified Code(s): A41.9 - Sepsis, unspecified organism Disposition: Admitted As Inpatient Condition: Fair Time of Disposition: 04:15 Extremity Problem HPI - General Chief complaint: ED Extremity Problem,Nontraumatic Stated complaint: shoots meth, missed an right arm swollen Time Seen by Provider: 07/06/19 23:38 Source: patient Limitations: no limitations Nursing Notes Reviewed: Yes Vital Signs Reviewed: Yes - History of Present Illness HPI Narrative: 43-year-old male presents to the department for Hurricane of right arm pain and swelling. Has history of IV drug use. No fevers but has had some chills. He did inject heroin early this morning which did seem to help this pain. But he also injected methamphetamine which he noticed A "skin popped" and then developed abscess. Pt Subjective Complaint: extremity pain, extremity swelling Onset (ago): day(s) (2) Consistency: constant, Worsening Injury Location: right, upper extremity Pain Scale: 10 Quality: aching Radiation: none Improves with: rest Worsens with: range of motion Associated symptoms: Reports: other (Denies chest pain, shortness of breath, any other concerns.). Denies: chest pain, shortness of breath, fever, change in appearance, swelling - Related Data Home Medications Medication Instructions Recorded Confirmed No Known Home Drugs 07/07/19 07/07/19 Allergies Allergy/AdvReac Type Severity Reaction Status Date / Time No Known Allergies Allergy Verified 03/07/19 14:16 All systems ED: reviewed and negative except as stated. Constitutional: Denies: fever, chills, weakness, weight change Eyes: Denies: eye pain, eye discharge, vision change ENT ED: Denies: ear pain, throat pain, dental pain, hearing loss, epistaxis, congestion, dysphagia Cardiovascular: Denies: chest pain, palpitations, dyspnea on exertion, edema, syncope Respiratory: Denies: cough, dyspnea, wheezes, hemoptysis, stridor Gastrointestinal: Denies: abdominal pain, nausea, vomiting, diarrhea, constipation, hematemesis, melena, hematochezia Genitourinary: Denies: urgency, dysuria, frequency, hematuria Musculoskeletal: Reports: joint swelling. Denies: back pain, neck pain, arthralgia, myalgia Integumentary: Denies: rash, abrasion, lesions Neurological: Denies: headache, weakness, numbness, paresthesias, confusion, abnormal gait, vertigo Psychiatric: Denies: anxiety, depression, suicidal thoughts, homicidal thoughts, auditory hallucinations, visual hallucinations Past Medical History - Past Medical History Attestation: Yes The following information was validated with the patient. Source: patient, old records reviewed, nursing notes reviewed Medical history: Reports: atrial fibrillation Surgical history: Reports: non-contributory Psychiatric history: Reports: no psych history - Social History Smoking Status: Never smoker Smokeless Tobacco Status: No Alcohol use: Reports: rarely Drug use: Reports: opiates, methamphetamine, IV Drug Use Physical Exam - General Limitations: no limitations General appearance: alert, anxious - Head Head exam: atraumatic, normocephalic, normal inspection - Eye Eye exam: Present: normal appearance, PERRL, EOMI - ENT ENT exam: normal exam, normal oropharynx, mucous membranes moist - Neck Neck exam: Present: normal inspection, full ROM, trachea midline - Chest Chest inspection: Present: normal inspection, symmetric chest wall rise - Respiratory Respiratory exam: Present: normal lung sounds bilaterally. Absent: respiratory distress, wheezes - Cardiovascular Cardiovascular exam: Present: regular rate, normal rhythm, normal heart sounds - Abdominal Exam Abdominal exam: Present: soft, Non-Tender, normal bowel sounds. Absent: tenderness, distention, guarding, rebound, rigidity - Extremities Exam Extremities exam: Present: normal inspection, full ROM, tenderness (Right upper extremity), normal capillary refill, other (On the right arm.Soft tissue swelling with erythema with suspected abscess). Absent: pedal edema - Expanded Upper Extremity Exam Shoulder exam: Present: normal inspection, full ROM. Absent: tenderness Arm exam: Present: tenderness, swelling, erythema, other (Her is large area of erythema involving the right upper extremity just above the antecubital fossa posterior medially.) Elbow exam: Present: full ROM, tenderness, swelling Forearm/Wrist exam: Present: normal inspection, full ROM, tenderness, swelling Hand exam: Present: normal inspection, full ROM, swelling. Absent: tenderness Neuromotor exam: Normal: wrist extension, thumb opposition, thumb IP flexion, thumb adduction, fingers 2-5 abduction Vascular exam: Normal: capillary refill - Back Exam Back exam: Present: normal inspection, full ROM. Absent: tenderness, CVA tenderness (R), CVA tenderness (L) - Neurological Exam Neurological exam: Present: alert, oriented X3, CN II-XII intact, normal gait - Psychiatric Psychiatric exam: Present: normal affect, normal mood Course Course Narrative: Patient was placed in examination room. Nurse's notes reviewed. Patient was tachycardic and his respiratory rate was elevated. He did meet Sirs criteria. However I do feel that he has stabilized and there is a focus of infection therefore he does meet sepsis criteria. Blood cultures were obtained. Normal saline 30 mL/kg bolus was given. Patient was given Zosyn and vancomycin. I did x-ray the right upper extremity is no obvious foreign body but there was soft tissue swelling. CT was obtained which did show a foreign F similar abscess in the distal of the right and acute fossa posterior medially. The same area that has overlying erythema. CT of the chest was obtained to rule out any infiltrate, pulmonary contusion, obvious emboli. No acute abdomen was noted. - Consultations Consultation #1: Dr Ribeiro Time: 03:30 Consultation #2: Dr Jay recommend ortho/plastic Time: 03:45 Consultation #3: Dr Santamaria-will see and evaluate and will consult Time: 04:08 Vital Signs Temperature 99.9 F H 07/06/19 23:24 Pulse Rate 105 07/06/19 23:24 Respiratory Rate 22 07/06/19 23:24 Blood Pressure 136/83 07/06/19 23:24 O2 Sat by Pulse Oximetry 99 07/06/19 23:24 Temperature 101.4 F H 07/07/19 01:54 Pulse Rate 83 07/07/19 05:10 Respiratory Rate 16 07/07/19 05:10 Blood Pressure 128/84 07/07/19 05:10 O2 Sat by Pulse Oximetry 100 07/07/19 05:10 Oxygen Delivery Oxygen Delivery Room Air Extremity Problem, Nontraumati - Medical Records Medical records reviewed: Yes I reviewed the patient's medical records. - Lab Data Lab results reviewed: Yes I reviewed the patient's lab results. Lab results narrative: Laboratory Tests 07/07/19 07/07/19 07/07/19 00:07 00:07 00:25 WBC 8.0 RBC 3.83 L Hgb 9.8 L Hct 30.2 L MCV 78.9 L MCH 25.6 L MCHC 32.5 RDW 15.1 H Plt Count 156 MPV 10.1 Immature Gran % 0.6 Seg Neutrophils % 73.1 Lymphocytes % 15.0 Monocytes % 10.8 Eosinophils % 0.1 Basophils % 0.4 Neutrophils # 5.9 Lymphocytes # 1.2 Monocytes # 0.9 Eosinophils # 0.0 Basophils # 0.0 PT 15.1 H INR 1.3 APTT 28.7 Sodium 134 L Potassium 3.3 L Chloride 103 Carbon Dioxide 24 BUN 10 Creatinine 0.72 Est GFR ( Amer) > 60 Est GFR (Non-Af Amer) > 60 BUN/Creatinine Ratio 14 Glucose 109 H Calculated Osmolality 278 L Lactic Acid Calcium 7.9 L Phosphorus 2.3 L Magnesium 1.7 Total Bilirubin 1.2 H Direct Bilirubin 0.3 H Indirect Bilirubin 0.9 AST 34 ALT 41 Alkaline Phosphatase 41 Troponin I < 0.03 Serum Total Protein 6.2 L Albumin 3.1 L Globulin 3.1 Albumin/Globulin Ratio 1.0 L Lipase 10 L Urine Color Urine Clarity Urine pH Ur Specific [place] Urine Protein Urine Glucose (UA) Urine Ketones Urine Blood Urine Nitrite Urine Bilirubin Urine Urobilinogen Ur Leukocyte Esterase Ur Culture Indicated? Urine Opiates Screen Ur Buprenorphine Scrn Ur Barbiturates Screen Ur Phencyclidine Scrn Ur Amphetamines Screen U Benzodiazepines Scrn Urine Cocaine Screen U Marijuana (THC) Screen Ur Drug Screen Interp 07/07/19 07/07/19 07/07/19 00:25 00:44 00:44 WBC RBC Hgb Hct MCV MCH MCHC RDW Plt Count MPV Immature Gran % Seg Neutrophils % Lymphocytes % Monocytes % Eosinophils % Basophils % Neutrophils # Lymphocytes # Monocytes # Eosinophils # Basophils # PT INR APTT Sodium Potassium Chloride Carbon Dioxide BUN Creatinine Est GFR ( Amer) Est GFR (Non-Af Amer) BUN/Creatinine Ratio Glucose Calculated Osmolality Lactic Acid 0.7 Calcium Phosphorus Magnesium Total Bilirubin Direct Bilirubin Indirect Bilirubin AST ALT Alkaline Phosphatase Troponin I Serum Total Protein Albumin Globulin Albumin/Globulin Ratio Lipase Urine Color Yellow Urine Clarity Clear Urine pH 6.0 Ur Specific [place] 1.024 Urine Protein Trace Urine Glucose (UA) Normal Urine Ketones Trace H Urine Blood Negative Urine Nitrite Negative Urine Bilirubin Negative Urine Urobilinogen Normal Ur Leukocyte Esterase Negative Ur Culture Indicated? NO Urine Opiates Screen Positive H Ur Buprenorphine Scrn Negative Ur Barbiturates Screen Negative Ur Phencyclidine Scrn Negative Ur Amphetamines Screen Positive H U Benzodiazepines Scrn Negative Urine Cocaine Screen Negative U Marijuana (THC) Screen Negative Ur Drug Screen Interp See Below Result diagrams: 07/07/19 00:07 07/07/19 00:07 Lab Results 07/07/19 07/07/19 07/07/19 Range/Units 00:07 00:07 00:25 WBC 8.0 (4.3-11.1) K/mcL RBC 3.83 L (4.19-5.50) M/mcL Hgb 9.8 L (12.9-16.9) g/dL Hct 30.2 L (37.5-50.1) % MCV 78.9 L (83.0-100.0) fL MCH 25.6 L (28.0-33.3) pg MCHC 32.5 (31.6-35.5) g/dL RDW 15.1 H (11.5-14.5) % Plt Count 156 (140-400) K/mcL MPV 10.1 (9.4-12.4) fL Immature Gran % 0.6 (0-4) % Seg Neutrophils % 73.1 % Lymphocytes % 15.0 % Monocytes % 10.8 % Eosinophils % 0.1 % Basophils % 0.4 % Neutrophils # 5.9 (1.6-8.9) K/mcL Lymphocytes # 1.2 (0.6-4.6) K/mcL Monocytes # 0.9 (0.0-1.3) K/mcL Eosinophils # 0.0 (0.0-0.6) K/mcL Basophils # 0.0 (0.0-0.2) K/mcL PT 15.1 H (9.4-12.1) Seconds INR 1.3 APTT 28.7 (26.0-36.0) Seconds Sodium 134 L (136-145) mEq/L Potassium 3.3 L (3.5-5.1) mEq/L Chloride 103 (98-107) mEq/L Carbon Dioxide 24 (23-29) mEq/L BUN 10 (6-20) mg/dL Creatinine 0.72 (0.70-1.30) mg/dL Est GFR ( Amer) > 60 (> 60) Est GFR (Non-Af Amer) > 60 (> 60) BUN/Creatinine Ratio 14 (6-26) Glucose 109 H (70-105) mg/dL Calculated Osmolality 278 L (280-300) Lactic Acid (0.5-2.2) mmol/L Calcium 7.9 L (8.6-10.3) mg/dL Phosphorus 2.3 L (2.7-4.5) mg/dL Magnesium 1.7 (1.6-2.6) mg/dL Total Bilirubin 1.2 H (0.3-1.0) mg/dL Direct Bilirubin 0.3 H (0.0-0.2) mg/dL Indirect Bilirubin 0.9 (0.0-1.2) mg/dL AST 34 (13-39) Units/L ALT 41 (7-52) Units/L Alkaline Phosphatase 41 (34-104) Units/L Troponin I < 0.03 (< 0.04) ng/mL Serum Total Protein 6.2 L (6.4-8.9) g/dL Albumin 3.1 L (3.5-5.7) g/dL Globulin 3.1 (2.4-3.5) g/dL Albumin/Globulin Ratio 1.0 L (1.1-2.2) Lipase 10 L (11-82) Units/L Urine Color (Yellow) Urine Clarity (Clear) Urine pH (5.0-8.0) pH Units Ur Specific [place] (1.010-1.025) Urine Protein (Neg-Trace) mg/dL Urine Glucose (UA) (Normal) mg/dL Urine Ketones (Negative) mg/dL Urine Blood (Negative) Urine Nitrite (Negative) Urine Bilirubin (Negative) Urine Urobilinogen (Normal) mg/dL Ur Leukocyte Esterase (Negative) Ur Culture Indicated? (NO) Urine Opiates Screen (Aytvrw=866) ng/mL Ur Buprenorphine Scrn (Cutoff=5) ng/mL Ur Barbiturates Screen (Vhvlfm=056) ng/mL Ur Phencyclidine Scrn (Cutoff=25) ng/mL Ur Amphetamines Screen (Rxwgys=9072) ng/mL U Benzodiazepines Scrn (Uuogsr=999) ng/mL Urine Cocaine Screen (Cutoff= 300) ng/mL U Marijuana (THC) Screen (Cutoff = 50) ng/mL Ur Drug Screen Interp 07/07/19 07/07/19 07/07/19 Range/Units 00:25 00:44 00:44 WBC (4.3-11.1) K/mcL RBC (4.19-5.50) M/mcL Hgb (12.9-16.9) g/dL Hct (37.5-50.1) % MCV (83.0-100.0) fL MCH (28.0-33.3) pg MCHC (31.6-35.5) g/dL RDW (11.5-14.5) % Plt Count (140-400) K/mcL MPV (9.4-12.4) fL Immature Gran % (0-4) % Seg Neutrophils % % Lymphocytes % % Monocytes % % Eosinophils % % Basophils % % Neutrophils # (1.6-8.9) K/mcL Lymphocytes # (0.6-4.6) K/mcL Monocytes # (0.0-1.3) K/mcL Eosinophils # (0.0-0.6) K/mcL Basophils # (0.0-0.2) K/mcL PT (9.4-12.1) Seconds INR APTT (26.0-36.0) Seconds Sodium (136-145) mEq/L Potassium (3.5-5.1) mEq/L Chloride (98-107) mEq/L Carbon Dioxide (23-29) mEq/L BUN (6-20) mg/dL Creatinine (0.70-1.30) mg/dL Est GFR ( Amer) (> 60) Est GFR (Non-Af Amer) (> 60) BUN/Creatinine Ratio (6-26) Glucose (70-105) mg/dL Calculated Osmolality (280-300) Lactic Acid 0.7 (0.5-2.2) mmol/L Calcium (8.6-10.3) mg/dL Phosphorus (2.7-4.5) mg/dL Magnesium (1.6-2.6) mg/dL Total Bilirubin (0.3-1.0) mg/dL Direct Bilirubin (0.0-0.2) mg/dL Indirect Bilirubin (0.0-1.2) mg/dL AST (13-39) Units/L ALT (7-52) Units/L Alkaline Phosphatase (34-104) Units/L Troponin I (< 0.04) ng/mL Serum Total Protein (6.4-8.9) g/dL Albumin (3.5-5.7) g/dL Globulin (2.4-3.5) g/dL Albumin/Globulin Ratio (1.1-2.2) Lipase (11-82) Units/L Urine Color Yellow (Yellow) Urine Clarity Clear (Clear) Urine pH 6.0 (5.0-8.0) pH Units Ur Specific [place] 1.024 (1.010-1.025) Urine Protein Trace (Neg-Trace) mg/dL Urine Glucose (UA) Normal (Normal) mg/dL Urine Ketones Trace H (Negative) mg/dL Urine Blood Negative (Negative) Urine Nitrite Negative (Negative) Urine Bilirubin Negative (Negative) Urine Urobilinogen Normal (Normal) mg/dL Ur Leukocyte Esterase Negative (Negative) Ur Culture Indicated? NO (NO) Urine Opiates Screen Positive H (Blkoen=618) ng/mL Ur Buprenorphine Scrn Negative (Cutoff=5) ng/mL Ur Barbiturates Screen Negative (Qgibni=034) ng/mL Ur Phencyclidine Scrn Negative (Cutoff=25) ng/mL Ur Amphetamines Screen Positive H (Qttnwj=2451) ng/mL U Benzodiazepines Scrn Negative (Bzmukb=241) ng/mL Urine Cocaine Screen Negative (Cutoff= 300) ng/mL U Marijuana (THC) Screen Negative (Cutoff = 50) ng/mL Ur Drug Screen Interp See Below - Radiology Data Radiology results reviewed: Yes I reviewed the patient's radiology results. CT/CT UE RT w con IMPRESSION: Vague area of abnormal enhancement near the antecubital fossa of the right elbow measuring about 4.2 x 3.7 cm suspicious for abscess or phlegmon. No radiopaque foreign body. Cellulitis of the lower arm and proximal forearm. No osseous changes of osteomyelitis. Consider MRI for complete soft tissue characterization. D/ / Preet Montes / Preet Montes Interpreting Provider: Preet Montes Chest X-Ray 07/07/19 00:08 IMPRESSION: Patchy right lower lung opacity possibly focal area of pneumonia. Consider correlation with CT. D/ / Preet Montes / Preet Montes Interpreting Provider: Preet Montes Elbow X-Ray 07/07/19 00:10 IMPRESSION: Large amount of soft tissue swelling with no acute or focal bony abnormality seen. D/ / Yuliana Patel Cha, MD / Yuliana Patel Cha, MD Interpreting Provider: Yuliana Patel Cha, MD Forearm X-Ray 07/07/19 00:10 IMPRESSION: Soft tissue swelling without air or radiopaque foreign body. D/ / Preet Montes / Preet Montes Interpreting Provider: Preet Montes Humerus X-Ray 07/07/19 00:10 IMPRESSION: Negative humeral radiographs. D/ / Preet Montes / Preet Montes Interpreting Provider: Preet Montes Chest CTA 07/07/19 01:33 IMPRESSION: No evidence of pulmonary embolism or acute pulmonary abnormality. Stable 7 mm right upper lobe nodule since at least 2016, favoring a benign process. Follow-up imaging should be considered based on the patient's risk factors. D/ / Neftali Ortega / Neftali Ortega Interpreting Provider: Neftali Ortega Upper Extremity CT 07/07/19 01:33 IMPRESSION: Vague area of abnormal enhancement near the antecubital fossa of the right elbow measuring about 4.2 x 3.7 cm suspicious for abscess or phlegmon. No radiopaque foreign body. Cellulitis of the lower arm and proximal forearm. No osseous changes of osteomyelitis. Consider MRI for complete soft tissue characterization. D/ / Preet Montes / Preet Montes Interpreting Provider: Preet Montes - EKG Data EKG attestation: Yes I reviewed and interpreted this EKG. EKG results narrative: EKG shows a normal sinus rhythm at 99 bpm MN interval was normal QRS duration is prolonged interventricular conduction delay, normal axis and acute ST elevations or depressions to suggest infarction or ischemia, underlying artifact Critical Care Time Critical Care Time: Yes Total Critical Care Time: 30 Attestation: The high probability of a clinically significant, sudden or life threatening deterioration of the patient's condition required my full and direct attention, intervention and personal management.
[2019-07-07 00:47] LABS: Basophils % 0.4 %; Eosinophils % 0.1 %; Hematocrit 30.2 % (37.5-50.1); Hemoglobin 9.8 g/dL (12.9-16.9); Immature Granulocytes % 0.6 % (0-4); Lymphocytes # 1.2 K/mcL (0.6-4.6); Mean Corpuscular HGB Conc 32.5 g/dL (31.6-35.5); Mean Corpuscular Hemoglobin 25.6 pg (28.0-33.3); Mean Corpuscular Volume 78.9 fL (83.0-100.0); Mean Platelet Volume 10.1 fL (9.4-12.4); Monocytes # 0.9 K/mcL (0.0-1.3); Monocytes % 10.8 %; Neutrophils # 5.9 K/mcL (1.6-8.9); Platelet Count 156 K/mcL (140-400); Red Blood Count 3.83 M/mcL (4.19-5.50); Red Cell Distribution Width 15.1 % (11.5-14.5); Segmented Neutrophils % 73.1 %
[2019-07-07 00:55] LABS: Bilirubin,Urine Negative (Negative); Blood,Urine Negative (Negative); Clarity,Urine Clear (Clear); Color,Urine Yellow (Yellow); Glucose,Urine (UA) Normal (Normal); Ketones,Urine Trace mg/dL (Negative); Leukocyte Esterase,Urine Negative (Negative); Nitrite,Urine Negative (Negative); Protein,Urine Trace mg/dL (Neg-Trace); Specific Gravity,Urine 1.024 (1.010-1.025); Urobilinogen,Urine Normal (Normal)
[2019-07-07 01:04] LABS: INR 1.3; Prothrombin Time 15.1 Seconds (9.4-12.1)
[2019-07-07 01:06] LABS: Alanine Aminotransferase 41 Units/L (7-52); Albumin 3.1 g/dL (3.5-5.7); Alkaline Phosphatase 41 Units/L (34-104); Aspartate Amino Transferase 34 Units/L (13-39); BUN/Creatinine Ratio 14 (6-26); Bilirubin,Direct 0.3 mg/dL (0.0-0.2); Bilirubin,Indirect 0.9 mg/dL (0.0-1.2); Bilirubin,Total 1.2 mg/dL (0.3-1.0); Blood Urea Nitrogen 10 mg/dL (6-20); Calcium 7.9 mg/dL (8.6-10.3); Carbon Dioxide 24 mEq/L (23-29); Chloride 103 mEq/L (98-107); Globulin 3.1 g/dL (2.4-3.5); Glucose 109 mg/dL (70-105); Lipase 10 Units/L (11-82); Magnesium 1.7 mg/dL (1.6-2.6); Osmolality,Calculated 278 (280-300); Phosphorous 2.3 mg/dL (2.7-4.5); Potassium 3.3 mEq/L (3.5-5.1); Sodium 134 mEq/L (136-145); Total Protein 6.2 g/dL (6.4-8.9); Troponin I < 0.03 ng/mL (< 0.04); eGFR For African Americans > 60 (> 60); eGFR For Non-African Americans > 60 (> 60)
[2019-07-07 01:06] LABS: Activated Partial Thrombo Time 28.7 Seconds (26.0-36.0)
[2019-07-07 01:13] LABS: Amphetamine Screen,Urine Positive ng/mL (Cutoff=1000); Barbiturate Screen,Urine Negative ng/mL (Cutoff=200); Benzodiazepines Screen,Urine Negative ng/mL (Cutoff=200); Cannabinoid Screen,Urine Negative ng/mL (Cutoff = 50); Cocaine Screen,Urine Negative ng/mL (Cutoff= 300); Opiate Screen,Urine Positive ng/mL (Cutoff=300); Phencyclidine Screen,Urine Negative ng/mL (Cutoff=25)
[2019-07-07] MEDS ORDERED: Isovue-370 500 ML BOTTLE IVP ONE (01:33)
[2019-07-07] MEDS ORDERED: Ondansetron 4 MG/2 ML VIAL IVP ONE (01:36)
[2019-07-07] MEDS ORDERED: Morphine Sulfate 2 MG/ML SYRINGE IVP ONE (01:36)
[2019-07-07] MEDS ORDERED: *HR* HYDROmorphone (PF) 1 MG/ML SYRINGE IVP ONE (04:06)
[2019-07-07] MEDS ORDERED: Ketorolac 30 MG/ML VIAL IVP ONE (04:35)
[2019-07-07] MEDS ORDERED: Dextrose Gel 15 GM/37.5 ML TUBE PO PRN ×2 (04:47)
[2019-07-07] MEDS ORDERED: Naloxone 0.4 MG/ML INJ IVP PRN (04:47)
[2019-07-07] MEDS ORDERED: *HR* Dextrose 50 % in Water (Syg) 50 ML SYRINGE IVP PRN (04:47)
[2019-07-07] MEDS ORDERED: D5% in Water 1,000 ML IVC PRN (04:47)
[2019-07-07] MEDS ORDERED: Nicotine 2 MG GUM BC PRN (04:47)
[2019-07-07] MEDS ORDERED: Vancomycin (wt based) 1,000 MG VIAL IVPB SCH (05:00)
--- NOTE | 2019-07-07 06:38 | Internal Med History&Physical ---
Date of Encounter: 07/07/19 Time of Encounter: 06:33 Internal Medicine - H&P: HPI Chief complaint: right arm pain Admitted From: Home Plans for Post Hospital Care: Home History of present illness: Mr. Amado is a 43 year old male with past medical history of IV drug usage for at least 7 years presented to the ED for right arm pain. Face to face encounter was done at 5:59. Patient stated that he has taken to starting IV drug usage regularly since age 35 due to stresses in life and a way of coping skill. Patient since then reported underwent 38 days of rehabilitation and succeeded in being drug free for 2 days before returning back into meth usage and heroin. Patient lives at home with his significant other and his preferred spot of insertion site is usually the upper arms specifically his right arm antecubitus area. Patient has been using this right arm site for many times. Patient asked his significant other to obtain a line for heroine usage and the site was missed by his fiancee approximately 5 days ago. Patient since then has been having progressive worsening sharp pain rated 10/10 and pressure with swelling. Patient had been using heroin in his left arm as a site to help alleviate the progressive pain of his right arm. Patient reported associated fever, chills, drenching night sweats, worsening shortness of breath and chest pain on exertion, intermittent headaches no hemoptysis, abdominal pain, hematuria, or confusion. family history reviewed significant for father with hypertension. 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 Patient does report that he would like to be drug free again and will need assistance. Past Med Surg Social Fam HX - Past Medical History Medical history: atrial fibrillation Additional medical history: drug abuse Psychiatric history: no psych history - Past Surgical History Surgical History: appendectomy Additional surgical history: left knee-cartliage - Social History Smoking Status: Never smoker Smokeless Tobacco Status: No Alcohol use: rarely Drug use: opiates, methamphetamine, IV Drug Use Internal Medicine - H&P: Meds No Known Home Drugs 07/07/19 [History] Allergy/AdvReac Type Severity Reaction Status Date / Time No Known Allergies Allergy Verified 03/07/19 14:16 All Systems PM: A 10-system review of systems was performed and is negative for pertinent findings except as documented above in the HPI. Review of systems: General: No unintentional weightloss, + fever, + night sweats. Head: No headahce, No injury. Ears: No discharge, No earache Eyes: No drainage, No eye pain Mouth and Throat: No new ulcers, No pain Nose and Sinus: No new congestion, No pain, Respiratory: No cough, No sputum production, No dyspnea Cardiovascular: No chest pain, No palpitations. Gastrointestinal: No nausea, No vomiting. No abdominal pain Genital Tract: No discharge, No pain Urinary Tract: No dysuria, No discharge. MSK: No new/worsening joint pain. +new/worsening muscle ache. Endocrine: No cold intolerance, No polyuria Psychological: No suicidal, No homocidal ideation. - Constitutional Vitals: Temp Pulse Resp BP Pulse Ox 101.4 F H 83 16 128/84 100 07/07/19 01:54 07/07/19 05:10 07/07/19 05:10 07/07/19 05:10 07/07/19 05:10 Exam: General Appearance: Appearing as age, well-nourished in no acute distress. Head: Atraumatic normocephalic Skin: Normal texture, normal turgor, warm, dry. Eyes: Conjunctivae not pale with no erythema, drainage, or ulcers. Anicteric. Neck: No Lymphadenopathy in the anterior/posterior cervical chain. No thyromegaly, masses or ulcers. Trachea midline. Heart: RRR, S3 sound , no murmurs. Capillary refill 3 seconds Lungs: No accessory muscle usage, lungs clear to auscultation bilaterally, no wheezes or crackles. Extremities: No pitting edema, clubbing, cyanosis, or ulcers. Right Arm swellin g, erthema and tenderness on the medial arm around the cubital fosssa extending distal and proximal. no crepitus noted. No janeaway lesion or oslor node present. Abdomen: Non-distended, normoactive bowel sounds. non-tender to palpation, no hepatomegally. No guarding. Neuro: AOx3 with no new sensory loss or focal deficits. MSK: Strength 5/5 Upper extremity equal bilaterally. Strength 5/5 Lower extr emity equal bilaterally Internal Med - H&P Results - Labs CBC & Chem 7: 07/07/19 00:07 07/07/19 00:07 Labs: Short CBC 07/07/19 Range/Units 00:07 WBC 8.0 (4.3-11.1) K/mcL Hgb 9.8 L (12.9-16.9) g/dL Hct 30.2 L (37.5-50.1) % Plt Count 156 (140-400) K/mcL Neutrophils # 5.9 (1.6-8.9) K/mcL BMP 07/07/19 00:07 Sodium 134 L Potassium 3.3 L Chloride 103 Carbon Dioxide 24 BUN 10 Creatinine 0.72 Glucose 109 H Calcium 7.9 L Cardiac Enzymes 07/07/19 Range/Units 00:07 Troponin I < 0.03 (< 0.04) ng/mL Liver Function 07/07/19 Range/Units 00:07 Total Bilirubin 1.2 H (0.3-1.0) mg/dL Direct Bilirubin 0.3 H (0.0-0.2) mg/dL AST 34 (13-39) Units/L ALT 41 (7-52) Units/L Alkaline Phosphatase 41 (34-104) Units/L Albumin 3.1 L (3.5-5.7) g/dL Urine 07/07/19 Range/Units 00:44 Urine Color Yellow (Yellow) Urine Clarity Clear (Clear) Urine pH 6.0 (5.0-8.0) pH Units Ur Specific Dailey 1.024 (1.010-1.025) Urine Protein Trace (Neg-Trace) mg/dL Urine Glucose (UA) Normal (Normal) mg/dL - Impressions ITS Impressions Chest X-Ray 07/07/19 00:08 IMPRESSION: Patchy right lower lung opacity possibly focal area of pneumonia. Consider correlation with CT. D/ / Preet Montes / Preet Montes Interpreting Provider: Preet Montes Elbow X-Ray 07/07/19 00:10 IMPRESSION: Large amount of soft tissue swelling with no acute or focal bony abnormality seen. D/ / Yuliana Patel Cha, MD / Yuliana Patel Cha, MD Interpreting Provider: Yuliana Patel Cha, MD Forearm X-Ray 07/07/19 00:10 IMPRESSION: Soft tissue swelling without air or radiopaque foreign body. D/ / Preet Montes / Preet Montes Interpreting Provider: Preet Montes Humerus X-Ray 07/07/19 00:10 IMPRESSION: Negative humeral radiographs. D/ / Preet Montes / Preet Montes Interpreting Provider: Preet Montes Chest CTA 07/07/19 01:33 IMPRESSION: No evidence of pulmonary embolism or acute pulmonary abnormality. Stable 7 mm right upper lobe nodule since at least 2016, favoring a benign process. Follow-up imaging should be considered based on the patient's risk factors. D/ / Neftali Ortega / Neftali Ortega Interpreting Provider: Neftali Ortega Upper Extremity CT 07/07/19 01:33 IMPRESSION: Vague area of abnormal enhancement near the antecubital fossa of the right elbow measuring about 4.2 x 3.7 cm suspicious for abscess or phlegmon. No radiopaque foreign body. Cellulitis of the lower arm and proximal forearm. No osseous changes of osteomyelitis. Consider MRI for complete soft tissue characterization. D/ / Preet Montes / Preet Montes Interpreting Provider: Preet Montes - Summary of Assessment and Plan Summary of Assessment and Plan: 1. Severe sepsis: Etiology likely right arm abscess with cellulitis and Suspected endocarditis 3 blood cultures pending. lactic acid 0.6. Echocardiogram ordered. IV fluids/abx given in the ED. Continue to monitor, and IV abx. 2.Right arm abscess near antecubital fossa: Consult surgery for I&D. IV vancomycin and Zosyn on board. Pain control with morphine and Dilaudid for breakthrough pain 3.Microcytic anemia: Anemia panel orderred. 4.HypoKalemia: replaced. 5.hx of IVDA: Needs counseling and outpatient rehab. Perhaps inpatient might help more as he failed outpatient previously. 6.Hypocalemia: Replaced. 7.hypophosphatemia: replaced Chronic : remote history of provoked A.fib secondary to drug usage: not currently on any medications. DVT porphylaxis: Heparin dispo: Likely >2 day stay. - Time Spent With Patient Total time spent is greater than 50% 39 minutes in coordination of care (as documented) at patient's floor/unit and/or counseling patient: Greater than 35 minutes
[2019-07-07 08:36] LABS: Estimated Average Glucose 117 mg/dl
[2019-07-07] MEDS: Piperacillin/Tazobactam 3.375 GM in 0.9 % Sodium Chloride Mini Bag 100 ML IVPB SCH ×2 (08:56→17:14)
[2019-07-07] MEDS ORDERED: Nicotine 21 MG PATCH.TD24 TD SCH (09:00)
[2019-07-07] MEDS ORDERED: Acetaminophen IV 1,000 MG/100 ML INFUS..BTL IVPB ONE (10:23)
--- NOTE | 2019-07-07 11:18 | Internal Med Progress Note ---
<Antelmo Nathan R - Last Filed: 07/07/19 14:03> Hospitalist Progress Note - Encounter Date of Encounter: 07/07/19 Time of Encounter: 09:50 - Subjective Interval History: Patient seen and examined. Reports significant pain rated as 10/10 in the R arm due to abscess. The pain has been getting progressively worse for the past 5 days. Pain radiates throughout his entire arm. Recurrent drug use for past 7 years of heroine and methamphetamine. Has been injecting heroine into his left arm to help with the pain. Has been reporting some chills. Denies any fever, chest pain, light headedness, SOB, cough, nausea, vomiting, diarrhea, dysuria. - Exam Vitals: Temp Pulse Resp BP Pulse Ox 99.3 F 77 17 121/74 99 07/07/19 07:49 07/07/19 07:49 07/07/19 07:49 07/07/19 07:49 07/07/19 07:49 Exam: Gen: AOx3 in moderate distress 2/2 pain Eyes: EMOI, [place] with no conjunctivitis Throat: Moist mucous membranes with no pharyngeal eyethema or tonsillar exudate CV: RRR with no murmurs Resp: CTA vita in all lung colon with no crackles or rhales GI: abdomen soft and non tender Neuro: CN II-XII intact with no focal deficits. Srength LE 4/5 vita. Strength L UE 4/5. Unable to asses strength in R UE due to pain EXT: Radial pulses palpated vita. Cap refill intact. DP 2/4 vita. No LE edema vita. Derm: Large erythematous area in right antecubital fossa. Unable to assess fluctuatance, pitting, or thickening of the skin due to pain. Track webb present on right arm from injection. - Assessment and Plan (1) Sepsis Current Visit: Yes Status: Acute Assessment and Plan: -likely secondary to the abscess on the right arm but unable to rule out infectious process such as pneumonia or endocarditis - 3 blood cultures drawn 07/07 - Lactic acid 0.6 on 07/07 - Temp 101.4, HR 105, >20 RR 9/5 meeting SIRS criteria for sepsis Plan: -Electrocardiogram pending -Cont Zosyn 3.375 g IV Q8 and 1.25 g IV vancomycin. (2) Abscess of right arm Current Visit: Yes Status: Acute Assessment and Plan: - Erythematous 4 cm area of cellulitis vs abscess on right arm in the antecubital fossa -X Ray R elbow 07/07 Large amount of soft tissue swelling with no acute or focal bony abnormality X Ray R humerus 07/07 negative -X Ray R forearm 07/07 Soft tissue swelling without air or radiopaque foreign body seen. -CT scan R upper extremity 07/07 Vague area of abnormal enhancement near the antecubital fossa of the right elbow measuring about 4.2 x 3.7 cm suspicious for abscess or phlegmon. No radiopaque foreign body. Cellulitis of the lower arm and proximal forearm. No osseous changes of osteomyelitis. Consider MRI for complete soft tissue characterization. Plan: -Consult surgery for I&D. -Cont IV abx listed above -Pain control with morphine 4mg IV Q2, Toradol and Dilaudid 1 mg Iv for breakthrough pain (3) Microcytic anemia Current Visit: Yes Status: Acute Assessment and Plan: - 9.8 Hgb and MCV 78.9 on 07/07 Plan: - Continue to monitor Hgb and vitals (4) Hypokalemia Current Visit: Yes Status: Acute Assessment and Plan: - 3.3 K on 07/07 -Replaced 40mg PO twice 07/07 Plan: - recheck potassium and replace if necessary (5) Hypocalcemia Current Visit: Yes Status: Acute Assessment and Plan: -Replaced with calcium carbonate 1g PO Plan: -recheck and replace if necessary (6) History of intravenous drug abuse Current Visit: Yes Status: Acute Assessment and Plan: -IV drug use for 7 years -Failed outpatient rehab Plan: -discuss potential inpatient rehab at the time of discharge - Time Spent with Patient Total time spent is greater than 50% in coordination of care (as documented) at patient's floor/unit and/or counseling patient: Plan of Care Discussed with: patient Internal Medicine: Result - Labs CBC & Chem 7: 07/07/19 00:07 07/07/19 00:07 Labs: Short CBC 07/07/19 Range/Units 00:07 WBC 8.0 (4.3-11.1) K/mcL Hgb 9.8 L (12.9-16.9) g/dL Hct 30.2 L (37.5-50.1) % Plt Count 156 (140-400) K/mcL Neutrophils # 5.9 (1.6-8.9) K/mcL BMP 07/07/19 00:07 Sodium 134 L Potassium 3.3 L Chloride 103 Carbon Dioxide 24 BUN 10 Creatinine 0.72 Glucose 109 H Calcium 7.9 L Cardiac Enzymes 07/07/19 07/07/19 Range/Units 00:07 06:02 Troponin I < 0.03 < 0.03 (< 0.04) ng/mL Liver Function 07/07/19 Range/Units 00:07 Total Bilirubin 1.2 H (0.3-1.0) mg/dL Direct Bilirubin 0.3 H (0.0-0.2) mg/dL AST 34 (13-39) Units/L ALT 41 (7-52) Units/L Alkaline Phosphatase 41 (34-104) Units/L Albumin 3.1 L (3.5-5.7) g/dL Urine 07/07/19 Range/Units 00:44 Urine Color Yellow (Yellow) Urine Clarity Clear (Clear) Urine pH 6.0 (5.0-8.0) pH Units Ur Specific [place] 1.024 (1.010-1.025) Urine Protein Trace (Neg-Trace) mg/dL Urine Glucose (UA) Normal (Normal) mg/dL - ABG Interpretation ABG results: PT/INR, D-dimer PT 15.1 Seconds (9.4-12.1) H 07/07/19 00:25 - Impressions Impressions Chest X-Ray 07/07/19 00:08 IMPRESSION: Patchy right lower lung opacity possibly focal area of pneumonia. Consider correlation with CT. D/ / Preet Montes / Preet Montes Interpreting Provider: Preet Montes Elbow X-Ray 07/07/19 00:10 IMPRESSION: Large amount of soft tissue swelling with no acute or focal bony abnormality seen. D/ / Yuliana Patel Cha, MD / Yuliana Patel Cha, MD Interpreting Provider: Yuliana Patel Cha, MD Forearm X-Ray 07/07/19 00:10 IMPRESSION: Soft tissue swelling without air or radiopaque foreign body. D/ / Preet Montes / Preet Montes Interpreting Provider: Preet Montes Humerus X-Ray 07/07/19 00:10 IMPRESSION: Negative humeral radiographs. D/ / Preet Montes / Preet Montes Interpreting Provider: Preet Montes Chest CTA 07/07/19 01:33 IMPRESSION: No evidence of pulmonary embolism or acute pulmonary abnormality. Stable 7 mm right upper lobe nodule since at least 2016, favoring a benign process. Follow-up imaging should be considered based on the patient's risk factors. D/ / Neftali Ortega / Neftali Ortega Interpreting Provider: Neftali Ortega Upper Extremity CT 07/07/19 01:33 IMPRESSION: Vague area of abnormal enhancement near the antecubital fossa of the right elbow measuring about 4.2 x 3.7 cm suspicious for abscess or phlegmon. No radiopaque foreign body. Cellulitis of the lower arm and proximal forearm. No osseous changes of osteomyelitis. Consider MRI for complete soft tissue characterization. D/ / 07/07/2019 07:30:56 Preet Montes / Angella Mcduffie Interpreting Provider: Preet Montes Consult Discharge Plan - Plan Referrals: NONE,PCP [Primary Care Provider] - <Delvin Augustine - Last Filed: 07/07/19 14:18> Hospitalist Progress Note - Encounter Date of Encounter: 07/07/19 Time of Encounter: 10:15 - Exam Vitals: Temp Pulse Resp BP Pulse Ox 99.3 F 77 17 121/74 99 07/07/19 07:49 07/07/19 07:49 07/07/19 07:49 07/07/19 07:49 07/07/19 10:35 - Time Spent with Patient Total time spent is greater than 50% in coordination of care (as documented) at patient's floor/unit and/or counseling patient: Internal Medicine: Result - Labs CBC & Chem 7: 07/07/19 00:07 07/07/19 00:07 Labs: Short CBC 07/07/19 Range/Units 00:07 WBC 8.0 (4.3-11.1) K/mcL Hgb 9.8 L (12.9-16.9) g/dL Hct 30.2 L (37.5-50.1) % Plt Count 156 (140-400) K/mcL Neutrophils # 5.9 (1.6-8.9) K/mcL BMP 07/07/19 00:07 Sodium 134 L Potassium 3.3 L Chloride 103 Carbon Dioxide 24 BUN 10 Creatinine 0.72 Glucose 109 H Calcium 7.9 L Cardiac Enzymes 07/07/19 07/07/19 07/07/19 Range/Units 00:07 06:02 10:42 Troponin I < 0.03 < 0.03 < 0.03 (< 0.04) ng/mL Liver Function 07/07/19 Range/Units 00:07 Total Bilirubin 1.2 H (0.3-1.0) mg/dL Direct Bilirubin 0.3 H (0.0-0.2) mg/dL AST 34 (13-39) Units/L ALT 41 (7-52) Units/L Alkaline Phosphatase 41 (34-104) Units/L Albumin 3.1 L (3.5-5.7) g/dL Urine 07/07/19 Range/Units 00:44 Urine Color Yellow (Yellow) Urine Clarity Clear (Clear) Urine pH 6.0 (5.0-8.0) pH Units Ur Specific [place] 1.024 (1.010-1.025) Urine Protein Trace (Neg-Trace) mg/dL Urine Glucose (UA) Normal (Normal) mg/dL - ABG Interpretation ABG results: PT/INR, D-dimer PT 15.1 Seconds (9.4-12.1) H 07/07/19 00:25 - Impressions Impressions Chest X-Ray 07/07/19 00:08 IMPRESSION: Patchy right lower lung opacity possibly focal area of pneumonia. Consider correlation with CT. D/ / Preet Montes / Preet Montes Interpreting Provider: Preet Montes Elbow X-Ray 07/07/19 00:10 IMPRESSION: Large amount of soft tissue swelling with no acute or focal bony abnormality seen. D/ / Yuliana Patel Cha, MD / Yuliana Patel Cha, MD Interpreting Provider: Yuliana Patel Cha, MD Forearm X-Ray 07/07/19 00:10 IMPRESSION: Soft tissue swelling without air or radiopaque foreign body. D/ / Preet Montes / Preet Montes Interpreting Provider: Preet Montes Humerus X-Ray 07/07/19 00:10 IMPRESSION: Negative humeral radiographs. D/ / Preet Montes / Preet Montes Interpreting Provider: Preet Montes Chest CTA 07/07/19 01:33 IMPRESSION: No evidence of pulmonary embolism or acute pulmonary abnormality. Stable 7 mm right upper lobe nodule since at least 2016, favoring a benign process. Follow-up imaging should be considered based on the patient's risk factors. D/ / Neftali Ortega / Neftali Ortega Interpreting Provider: Neftali Ortega Upper Extremity CT 07/07/19 01:33 IMPRESSION: Vague area of abnormal enhancement near the antecubital fossa of the right elbow measuring about 4.2 x 3.7 cm suspicious for abscess or phlegmon. No radiopaque foreign body. Cellulitis of the lower arm and proximal forearm. No osseous changes of osteomyelitis. Consider MRI for complete soft tissue characterization. D/ / 07/07/2019 07:30:56 Preet Montes / Angella Mcduffie Interpreting Provider: Preet Montes - Attending Attestation I saw evaluated and examined this patient and reviewed objective data including labs and my medical decision-making was reviewed with the medical student. I agree with the documented findings, disposition and treatment plan as described except to any changes set forth below. We independently had [id number] contact with the patient. Patient with swelling and erythema involving his right upper extremity going on for the past 5 days. Found to have cellulitis and phlegmon involving the right forearm and antecubital fossa. We will continue IV antibiotics. Await orthopedic evaluation. Follow blood culture results. <Antelmo Nathan R - Last Filed: 07/07/19 14:03> (1) Sepsis Qualifiers: Sepsis type: sepsis due to unspecified organism Sepsis acute organ dysfunction status: without acute organ dysfunction Qualified Code(s): A41.9 - Sepsis, unspecified organism
--- NOTE | 2019-07-07 11:50 | Electrocardiograph Report ---
[facility] Test Date: 2019-07-07 Pat Name: Alon Amado Department: [id number] Room: 2A44 Gender: M [employer] Analyst: : 1975 Requested By: [id number] Order Number: [id number] Reading MD: Albino Small Measurements Intervals [place] Rate: 99 P: 71 ME: 144 QRS: 70 QRSD: 109 T: 56 QT: 331 QTc: 425 Interpretive Statements Sinus tachycardia Probable anteroseptal infarct, old Electronically Signed On 07-07-2019 11:48:25 EDT by Albino Small
--- NOTE | 2019-07-07 13:50 | Orthopedic Consult Note ---
Date of Encounter: 07/07/19 Time of Encounter: 13:50 Assessment and Plan (1) Abscess of right arm Current Visit: Yes Status: Acute Diagnosis and treatment recommendations were discussed. Bedside I&D was performed. Consent was obtained. The elbow was steriley prepped and numbed with 1% lidocaine. 3 cm incision was made medial to antecubital fossa and purulent material was expressed. The wound was then copiously irrigated and wet to dry dressing was placed. Tolerated with no issues. Continue IV atbx No plans for further surgery at this time BID wet to dry dressing changes Ice/elevate History of Present Illness HPI: Mr. Amado is a 43 year old male with past medical history of IV drug usage admitted with right arm pain. Began having progressive worsening sharp pain, pressure with swelling about 5 days ago. Also with surrounding erythema. Patient reported associated fever, chills. Admitted for management of infection and started on IV antibiotics. Past Med Surg Social Fam HX - Past Medical History Medical history: atrial fibrillation Additional medical history: drug abuse Psychiatric history: no psych history - Past Surgical History Surgical History: appendectomy Additional surgical history: left knee-cartliage - Social History Smoking Status: Never smoker Smokeless Tobacco Status: No Alcohol use: rarely Drug use: opiates, methamphetamine, IV Drug Use Medications and Allergies No Known Home Drugs 07/07/19 [History] Allergy/AdvReac Type Severity Reaction Status Date / Time No Known Allergies Allergy Verified 03/07/19 14:16 All Systems Reviewed: The remainder of the systems were reviewed and are negative except as noted in the HPI Physical Exam - Constitutional Vitals: Temp Pulse Resp BP Pulse Ox 99.3 F 77 17 121/74 99 07/07/19 07:49 07/07/19 07:49 07/07/19 07:49 07/07/19 07:49 07/07/19 10:35 General appearance IM: A&O X 3 Exam: RUE: Erythema over antecubital fossa. Fluctuant mass just medial to antecubital fossa that is tender to palpation. Able to range elbow without pain. Distally neurovascularly intact to motor/sensory exam. Results - Labs Result Diagrams: 07/07/19 00:07 07/07/19 00:07 Labs: Abnormal lab results RBC 3.83 M/mcL (4.19-5.50) L 07/07/19 00:07 Hgb 9.8 g/dL (12.9-16.9) L 07/07/19 00:07 Hct 30.2 % (37.5-50.1) L 07/07/19 00:07 MCV 78.9 fL (83.0-100.0) L 07/07/19 00:07 MCH 25.6 pg (28.0-33.3) L 07/07/19 00:07 RDW 15.1 % (11.5-14.5) H 07/07/19 00:07 PT 15.1 Seconds (9.4-12.1) H 07/07/19 00:25 Sodium 134 mEq/L (136-145) L 07/07/19 00:07 Potassium 3.3 mEq/L (3.5-5.1) L 07/07/19 00:07 Glucose 109 mg/dL (70-105) H 07/07/19 00:07 Hemoglobin A1c 5.7 % (-5.6) H 07/07/19 06:02 Calculated Osmolality 278 (280-300) L 07/07/19 00:07 Calcium 7.9 mg/dL (8.6-10.3) L 07/07/19 00:07 Phosphorus 2.3 mg/dL (2.7-4.5) L 07/07/19 00:07 Total Bilirubin 1.2 mg/dL (0.3-1.0) H 07/07/19 00:07 Direct Bilirubin 0.3 mg/dL (0.0-0.2) H 07/07/19 00:07 Serum Total Protein 6.2 g/dL (6.4-8.9) L 07/07/19 00:07 Albumin 3.1 g/dL (3.5-5.7) L 07/07/19 00:07 Albumin/Globulin Ratio 1.0 (1.1-2.2) L 07/07/19 00:07 Lipase 10 Units/L (11-82) L 07/07/19 00:07 Urine Ketones Trace mg/dL (Negative) H 07/07/19 00:44 Urine Opiates Screen Positive ng/mL (Lsuett=344) H 07/07/19 00:44 Ur Amphetamines Screen Positive ng/mL (Ysugyl=4238) H 07/07/19 00:44 H & H 07/07/19 Range/Units 00:07 Hgb 9.8 L (12.9-16.9) g/dL Hct 30.2 L (37.5-50.1) % All other labs normal. - Diagnostic results Elbow CT: report reviewed, image reviewed (Abscess medial to antecubital fossa) Consult Discharge Plan - Plan Referrals: NONE,PCP [Primary Care Provider] -
[2019-07-07] MEDS ORDERED: *HR* LORazepam 2 MG/ML VIAL IVP PRN (17:54)
[2019-07-08] MEDS: Piperacillin/Tazobactam 3.375 GM in 0.9 % Sodium Chloride Mini Bag 100 ML IVPB SCH ×4 (00:09→23:50)
[2019-07-08 06:00] LABS: Basophils % 0.4 %; Eosinophils # 0.2 K/mcL (0.0-0.6); Eosinophils % 3.2 %; Hemoglobin 10.1 g/dL (12.9-16.9); Immature Granulocytes % 0.6 % (0-4); Lymphocytes # 1.5 K/mcL (0.6-4.6); Lymphocytes % 29.9 %; Mean Corpuscular HGB Conc 30.6 g/dL (31.6-35.5); Mean Corpuscular Hemoglobin 24.9 pg (28.0-33.3); Mean Corpuscular Volume 81.5 fL (83.0-100.0); Monocytes # 0.6 K/mcL (0.0-1.3); Monocytes % 11.8 %; Neutrophils # 2.7 K/mcL (1.6-8.9); Platelet Count 174 K/mcL (140-400); Red Blood Count 4.05 M/mcL (4.19-5.50); Red Cell Distribution Width 14.9 % (11.5-14.5); Segmented Neutrophils % 54.1 %
[2019-07-08 06:10] LABS: INR 1.2; Prothrombin Time 14.1 Seconds (9.4-12.1)
[2019-07-08 06:14] LABS: Activated Partial Thrombo Time 28.8 Seconds (26.0-36.0)
[2019-07-08 06:38] LABS: Platelet Estimate Normal (Normal); Reactive Lymphocytes Present (Not Present)
[2019-07-08 06:44] LABS: Alanine Aminotransferase 42 Units/L (7-52); Albumin 2.8 g/dL (3.5-5.7); Alkaline Phosphatase 45 Units/L (34-104); Aspartate Amino Transferase 44 Units/L (13-39); BUN/Creatinine Ratio 11 (6-26); Bilirubin,Total 0.6 mg/dL (0.3-1.0); Blood Urea Nitrogen 8 mg/dL (6-20); Calcium 8.2 mg/dL (8.6-10.3); Carbon Dioxide 27 mEq/L (23-29); Chloride 110 mEq/L (98-107); Cholesterol 59 mg/dL (< 200); Globulin 2.8 g/dL (2.4-3.5); Glucose 128 mg/dL (70-105); HDL Cholesterol 20 mg/dL (40-59); LDL Cholesterol,Calculated 29 mg/dL (0-99); Magnesium 1.9 mg/dL (1.6-2.6); Osmolality,Calculated 294 (280-300); Phosphorous 2.9 mg/dL (2.7-4.5); Potassium 4.2 mEq/L (3.5-5.1); Sodium 142 mEq/L (136-145); Total Protein 5.6 g/dL (6.4-8.9); Triglycerides 48 mg/dL (< 150); eGFR For African Americans > 60 (> 60); eGFR For Non-African Americans > 60 (> 60)
--- NOTE | 2019-07-08 08:43 | Internal Med Progress Note ---
<Delvin Augustine - Last Filed: 07/08/19 12:55> Hospitalist Progress Note - Encounter Date of Encounter: 07/08/19 Time of Encounter: 10:10 - Subjective Interval History: Patient lying down in bed. Underwent bedside I&D yesterday. Pain improved after this procedure was done. He complains of some fevers,chills and tremors today. Denies any chest pain or shortness of breath. - Exam Vitals: Temp Pulse Resp BP Pulse Ox 97.4 F L 67 16 113/49 99 07/08/19 12:34 07/08/19 12:34 07/08/19 12:34 07/08/19 12:34 07/08/19 12:34 Exam: General: Patient is alert, no acute distress, oriented x 3 Respiratory: Good respiratory effort. Normal breath sounds. No wheezing or crackles. Cardiovascular: Regular rate and rhythm. s1 and s2 normal No clicks, rubs, gallops, or murmurs. No pedal edema Abdomen: Abdomen is soft, nontender. Bowel sounds are present Musculoskeletal: Right upper extremity swelling involving right forearm and antecubital fossa improving. Currently bandaged. Skin: warm, dry, intact. Neuro: Alert oriented x 3 normal cranial nerves, no focal deficits - Assessment and Plan (1) Sepsis Current Visit: Yes Status: Acute (2) Cellulitis of right upper extremity Current Visit: Yes Status: Acute (3) Microcytic anemia Current Visit: Yes Status: Acute (4) Right arm cellulitis Current Visit: Yes Status: Acute (5) Infective endocarditis Current Visit: Yes Status: Suspected - Time Spent with Patient Total time spent is greater than 50% in coordination of care (as documented) at patient's floor/unit and/or counseling patient: Internal Medicine: Result - Labs CBC & Chem 7: 07/08/19 05:33 07/08/19 05:33 Labs: Short CBC 07/08/19 Range/Units 05:33 WBC 5.0 (4.3-11.1) K/mcL Hgb 10.1 L (12.9-16.9) g/dL Hct 33.0 L (37.5-50.1) % Plt Count 174 (140-400) K/mcL Neutrophils # 2.7 (1.6-8.9) K/mcL BMP 07/08/19 05:33 Sodium 142 Potassium 4.2 Chloride 110 H Carbon Dioxide 27 BUN 8 Creatinine 0.74 Glucose 128 H Calcium 8.2 L Cardiac Enzymes 07/07/19 Range/Units 17:05 Troponin I < 0.03 (< 0.04) ng/mL Liver Function 07/08/19 Range/Units 05:33 Total Bilirubin 0.6 (0.3-1.0) mg/dL AST 44 H (13-39) Units/L ALT 42 (7-52) Units/L Alkaline Phosphatase 45 (34-104) Units/L Albumin 2.8 L (3.5-5.7) g/dL - ABG Interpretation ABG results: PT/INR, D-dimer PT 14.1 Seconds (9.4-12.1) H 07/08/19 05:33 - Impressions Impressions Echocardiogram 07/07/19 06:55 Impressions: LVEF 55%. Normal LV wall thickness and function. Moderate left ventricular diastolic dysfunction. Normal right ventricular structure and function. Mildly dilated left ventricle. Oscillating echodensity suggested on the ventricular side of the anterior MV leaflet suggestive of a vegetation. Normal tricuspid valve structure and function. Recommend SHEEBA if clinically indicated. Left Ventricular Wall Motion: Rest Echo Findings All wall segments showed normal motion. Findings: Study Quality * Technically adequate exam. ECG Findings * Normal sinus rhythm. Left Ventricle * LVEF 55%. * Normal LV wall thickness and function. * Moderate left ventricular diastolic dysfunction. * Mildly dilated left ventricle. Right Ventricle * Normal right ventricular structure and function. Left Atrium * Normal left atrial size. Right Atrium * Normal right atrial size. Interatrial Septum * Interatrial septum not well evaluated. Aortic Valve * Aortic valve not well visualized. * No aortic regurgitation. * Trace aortic regurgitation. Mitral Valve * Oscillating echodensity suggested on the ventricular side of the anterior MV leaflet suggestive of a vegetation. * Trace mitral regurgitation. * No mitral stenosis. Tricuspid Valve * Trace tricuspid regurgitation. * No pulmonary hypertension. * Normal tricuspid valve structure and function. Pulmonic Valve * Normal pulmonic valve structure and function. * Trace pulmonic regurgitation. Aorta * Normally sized aortic root. Pericardium * The pericardium appears normal. IVC * Normal IVC dimensions and inspiratory collapse. Pulmonary Artery * Normal visualized portions of the main pulmonary artery. Consult Discharge Plan - Plan Referrals: NONE,PCP [Primary Care Provider] - - Attending Attestation I saw evaluated and examined this patient and reviewed objective data including labs and my medical decision-making was reviewed with the medical student. I agree with the documented findings, disposition and treatment plan as described except to any changes set forth below. We independently had [id number] contact with the patient. Severe Sepsis due to right upper extremity cellulitis and abscess with possible underlying endocarditis: Continue current antibiotics. Awaiting culture results. 2-D echocardiogram done yesterday showed possible vegetation involving mitral valve. SHEEBA was ordered today but could not be completed due to poor response to sedation. We will reattempt on Thursday with anesthesia support. History of drug abuse: Monitoring for signs of withdrawal. Patient on CIWA protocol. He does appear to be experiencing some withdrawal symptoms. We will continue to monitor closely. Multiple electrolyte abnormalities: Repleted intravenously. Microcytic anemia: Improving. Hemoglobin 10.1 today. We will check iron, folic acid and B12 levels. Due to prophylaxis with subcutaneous heparin <Antelmo Nathan - Last Filed: 07/08/19 16:52> Hospitalist Progress Note - Encounter Date of Encounter: 07/08/19 Time of Encounter: 09:30 - Subjective Interval History: Patient seen and examined at bedside. Reports sweating/chills, diarrhea symptoms that he is attributing going through withdraw from heroine. Last injection was day of admission. Denies any chest pain, SOB, light headedness, dysuria. - Exam Vitals: Temp Pulse Resp BP Pulse Ox 98.3 F 76 16 113/72 99 07/08/19 07:41 07/08/19 07:41 07/08/19 07:41 07/08/19 07:41 07/08/19 08:00 Exam: Gen: AOx3 Eyes: [place], EOMI No conjunctivits Throat:moist mucous membranes. No pharyngeal erythema or tonsilar exudate CV:RRR with no murmurs Resp: CTA in all lung colon GI:Soft, non-tender with no masses or organomegally Neuro: CN II-XII in tact with no focal deficits Ext: R UE swelling and eyrthema, in the forearm and antecubital fossa. 3 cm open incision present on the forearm from I and D. No tissue necosis on the borders of the wound, or exudate. DP 2/4 vita with no pedal edema. Derm: Tracking webb from IV drug use on Vita Ext. No signs of rash. - Assessment and Plan (1) Sepsis Current Visit: Yes Status: Acute Assessment and Plan: -likely secondary to the abscess on the right arm but unable to rule out infectious process such as pneumonia or endocarditis - 3 blood cultures drawn 07/07 - Lactic acid 0.6 on 07/07 - Transthoracic Echocardiogram on 07/07 showed Oscillating echodensity on the ve ntricular side of the antior Mitral valve leaf suggestive of vegetation. LVEF 55% with moderate left ventricle diastolic dysfunction - SHEEBA 07/08 unable to be performed with versed due to gag reflex Plan: - SHEEBA planned with anaestesia - COnsult ID for potential endocarditis -Cont Zosyn 3.375 g IV Q8 and 1.25 g IV vancomycin -Blood cultures pending (2) Abscess of right arm Current Visit: Yes Status: Acute Assessment and Plan: - Erythematous 4 cm area of cellulitis vs abscess on right arm in the antecubital fossa -X Ray R elbow 07/07 Large amount of soft tissue swelling with no acute or focal bony abnormality -X Ray R forearm 07/07 Soft tissue swelling without air or radiopaque foreign body seen. -CT scan R upper extremity 07/07 Vague area of abnormal enhancement near the antecubital fossa of the right elbow measuring about 4.2 x 3.7 cm suspicious for abscess or phlegmon. No radiopaque foreign body. Cellulitis of the lower arm and proximal forearm. No osseous changes of osteomyelitis. Consider MRI for complete soft tissue characterization. - Ortho performed I/D at bedside on 07/07 Plan: -Cont IV abx listed above -Pain control with morphine 4mg IV Q2, Toradol and Dilaudid 1 mg Iv for breakt hrough pain - Dressing per ortho recommendation (3) Microcytic anemia Current Visit: Yes Status: Acute Assessment and Plan: - 9.8 Hgb and MCV 78.9 on 07/07 - 10.1 Hgb and MCV 81.5 07/08 Plan: - Continue to monitor Hgb and vitals - Iron study ordered (4) History of intravenous drug abuse Current Visit: Yes Status: Acute Assessment and Plan: -IV drug use for 7 years -Failed outpatient rehab Plan: -discuss potential inpatient rehab at the time of discharge DVT Prophylaxis: Sub cutaneous heparin - Time Spent with Patient Total time spent is greater than 50% in coordination of care (as documented) at patient's floor/unit and/or counseling patient: Plan of Care Discussed with: patient Internal Medicine: Result - Labs CBC & Chem 7: 07/08/19 05:33 07/08/19 05:33 Labs: Short CBC 07/08/19 Range/Units 05:33 WBC 5.0 (4.3-11.1) K/mcL Hgb 10.1 L (12.9-16.9) g/dL Hct 33.0 L (37.5-50.1) % Plt Count 174 (140-400) K/mcL Neutrophils # 2.7 (1.6-8.9) K/mcL BMP 07/08/19 05:33 Sodium 142 Potassium 4.2 Chloride 110 H Carbon Dioxide 27 BUN 8 Creatinine 0.74 Glucose 128 H Calcium 8.2 L Cardiac Enzymes 07/07/19 07/07/19 Range/Units 10:42 17:05 Troponin I < 0.03 < 0.03 (< 0.04) ng/mL Liver Function 07/08/19 Range/Units 05:33 Total Bilirubin 0.6 (0.3-1.0) mg/dL AST 44 H (13-39) Units/L ALT 42 (7-52) Units/L Alkaline Phosphatase 45 (34-104) Units/L Albumin 2.8 L (3.5-5.7) g/dL - ABG Interpretation ABG results: PT/INR, D-dimer PT 14.1 Seconds (9.4-12.1) H 07/08/19 05:33 - Impressions Impressions Echocardiogram 07/07/19 06:55 Impressions: LVEF 55%. Normal LV wall thickness and function. Moderate left ventricular diastolic dysfunction. Normal right ventricular structure and function. Mildly dilated left ventricle. Oscillating echodensity suggested on the ventricular side of the anterior MV leaflet suggestive of a vegetation. Normal tricuspid valve structure and function. Recommend SHEEBA if clinically indicated. Left Ventricular Wall Motion: Rest Echo Findings All wall segments showed normal motion. Findings: Study Quality * Technically adequate exam. ECG Findings * Normal sinus rhythm. Left Ventricle * LVEF 55%. * Normal LV wall thickness and function. * Moderate left ventricular diastolic dysfunction. * Mildly dilated left ventricle. Right Ventricle * Normal right ventricular structure and function. Left Atrium * Normal left atrial size. Right Atrium * Normal right atrial size. Interatrial Septum * Interatrial septum not well evaluated. Aortic Valve * Aortic valve not well visualized. * No aortic regurgitation. * Trace aortic regurgitation. Mitral Valve * Oscillating echodensity suggested on the ventricular side of the anterior MV leaflet suggestive of a vegetation. * Trace mitral regurgitation. * No mitral stenosis. Tricuspid Valve * Trace tricuspid regurgitation. * No pulmonary hypertension. * Normal tricuspid valve structure and function. Pulmonic Valve * Normal pulmonic valve structure and function. * Trace pulmonic regurgitation. Aorta * Normally sized aortic root. Pericardium * The pericardium appears normal. IVC * Normal IVC dimensions and inspiratory collapse. Pulmonary Artery * Normal visualized portions of the main pulmonary artery. <Delvin Augustine - Last Filed: 07/08/19 12:55> (1) Sepsis Qualifiers: Sepsis type: sepsis due to unspecified organism Sepsis acute organ dysfunction status: without acute organ dysfunction Qualified Code(s): A41.9 - Sepsis, unspecified organism (5) Infective endocarditis Qualifiers: Infective endocarditis organism: bacterial Chronicity: acute Qualified Code(s): I33.0 - Acute and subacute infective endocarditis <Antelmo Nathan - Last Filed: 07/08/19 16:52> (1) Sepsis Qualifiers: Sepsis type: sepsis due to unspecified organism Sepsis acute organ dysfunction status: without acute organ dysfunction Qualified Code(s): A41.9 - Sepsis, unspecified organism
[2019-07-08] MEDS ORDERED: Lidocaine Viscous Oral Soln 15 ML SOLUTION MM PRN (10:47)
[2019-07-08] MEDS ORDERED: 0.9 % Sodium Chloride 500 ML IVC ONE (10:48)
[2019-07-08] MEDS: *HR* Midazolam HCl 5 MG/5 ML VIAL IVP PRN ×5 (11:25→11:45)
[2019-07-08] MEDS: *HR* FentaNYL (PF) 100 MCG/2 ML VIAL IVP PRN ×5 (11:25→11:45)
--- NOTE | 2019-07-08 12:04 | Event Note ---
Date of Encounter: 07/08/19 Time of Encounter: 11:59 Procedure: SHEEBA Anesthesia: Versed 10 mg, Fentanyl 200 mcg. Procedure details: Patient demonstrated a high tolerance to sedative medications. After appearing to achieve conscious sedation, the probe was inserted without difficulty. Unfortunately, the patient quickly woke up, grabbed at the scope, and was wretching from a strong gag reflex. Patient vomited about 20cc of clear emesis. The scope was immediately withdrawn and the procedure aborted. The patient was on his side during the procedure and there was no aspiration. Oxygen saturation remained stable throughout the procedure. Recommendations: If the procedure is to be performed, it will need to be rescheduled with support from the anesthesia department. Thanks, Yosvany Rogers
[2019-07-08] MEDS: *HR* Heparin 5,000 UNIT/ML VIAL SQ SCH (16:44)
[2019-07-08] MEDS: *HR* LORazepam 2 MG/ML VIAL IVP PRN ×2 (21:05→21:59)
[2019-07-08] MEDS: Ondansetron ODT 4 MG TAB.RAPDIS SL PRN (21:59)
[2019-07-09 00:27] LABS: Basophils # 0.1 K/mcL (0.0-0.2); Basophils % 1.1 %; Eosinophils # 0.3 K/mcL (0.0-0.6); Eosinophils % 5.5 %; Hematocrit 35.8 % (37.5-50.1); Hemoglobin 10.9 g/dL (12.9-16.9); Immature Granulocytes % 0.4 % (0-4); Lymphocytes # 1.7 K/mcL (0.6-4.6); Lymphocytes % 30.9 %; Mean Corpuscular HGB Conc 30.4 g/dL (31.6-35.5); Mean Corpuscular Hemoglobin 24.5 pg (28.0-33.3); Mean Corpuscular Volume 80.6 fL (83.0-100.0); Mean Platelet Volume 9.8 fL (9.4-12.4); Monocytes # 0.5 K/mcL (0.0-1.3); Monocytes % 9.3 %; Platelet Count 210 K/mcL (140-400); Red Blood Count 4.44 M/mcL (4.19-5.50); Red Cell Distribution Width 14.8 % (11.5-14.5); Segmented Neutrophils % 52.8 %; White Blood Count 5.6 K/mcL (4.3-11.1)
[2019-07-09 00:45] LABS: BUN/Creatinine Ratio 13 (6-26); Blood Urea Nitrogen 9 mg/dL (6-20); Calcium 7.9 mg/dL (8.6-10.3); Carbon Dioxide 23 mEq/L (23-29); Chloride 106 mEq/L (98-107); Glucose 160 mg/dL (70-105); Osmolality,Calculated 288 (280-300); Potassium 3.6 mEq/L (3.5-5.1); Sodium 138 mEq/L (136-145); eGFR For African Americans > 60 (> 60); eGFR For Non-African Americans > 60 (> 60)
[2019-07-09 00:47] LABS: % Iron Saturation 25 % (20-55); Iron 56 mcg/dL (65-175); Transferrin 163 mg/dL (203-362)
[2019-07-09 00:57] LABS: Ovalocytes 2+ (Not Present); Platelet Estimate Normal (Normal)
[2019-07-09 01:06] LABS: Ferritin 189 ng/mL (20-250)
[2019-07-09 01:12] LABS: Folate 9.5 ng/mL (3.0-16.0)
[2019-07-09] MEDS: *HR* LORazepam 2 MG/ML VIAL IVP PRN ×8 (01:52→20:17)
[2019-07-09] MEDS: Piperacillin/Tazobactam 3.375 GM in 0.9 % Sodium Chloride Mini Bag 100 ML IVPB SCH ×2 (08:02→15:04)
[2019-07-09] MEDS: *HR* Heparin 5,000 UNIT/ML VIAL SQ SCH ×2 (08:22→17:40)
[2019-07-09] MEDS: Ondansetron ODT 4 MG TAB.RAPDIS SL PRN (08:22)
--- NOTE | 2019-07-09 13:44 | Internal Med Progress Note ---
Hospitalist Progress Note - Encounter Date of Encounter: 07/09/19 Time of Encounter: 10:40 - Subjective Interval History: Patient is lying down in bed. States that his pain remains poorly controlled and is having continued withdrawal symptoms. Could not undergo SHEEBA yesterday due to sedation being inadequate for him. No fever or chills reported overni ght. No nausea or vomiting. - Exam Vitals: Temp Pulse Resp BP Pulse Ox 98.1 F 88 15 115/73 98 07/09/19 11:37 07/09/19 11:37 07/09/19 11:37 07/09/19 11:37 07/09/19 11:37 Exam: General: Patient is alert, no acute distress, oriented x 3 Respiratory: Good respiratory effort. Normal breath sounds. No wheezing or crackles. Cardiovascular: Regular rate and rhythm. s1 and s2 normal No clicks, rubs, gallops, or murmurs. No pedal edema Abdomen: Abdomen is soft, nontender. Bowel sounds are present Musculoskeletal: Right upper extremity bandaged. Tender to palpation over the right antecubital fossa Skin: warm, dry, intact. Neuro: Alert oriented x 3 normal cranial nerves, no focal deficits - Assessment and Plan (1) Sepsis Current Visit: Yes Status: Acute (2) Cellulitis of right upper extremity Current Visit: Yes Status: Acute (3) Microcytic anemia Current Visit: Yes Status: Acute (4) Right arm cellulitis Current Visit: Yes Status: Acute (5) Infective endocarditis Current Visit: Yes Status: Suspected (6) History of intravenous drug abuse Current Visit: Yes Status: Acute DVT Prophylaxis: Continue subcutaneous heparin - Summary of Assessment and Plan Summary of Assessment and Plan: Severe Sepsis due to right upper extremity cellulitis and abscess with possible underlying endocarditis: Blood cultures remain negative. Infectious disease consulted. Reattempt SHEEBA on Thursday under anesthesia. Continue current antibiotics in the meantime. Pain controlled-Will decrease frequency of oxycodone to every 4 hours as needed. History of drug abuse: Patient reports continued withdrawal symptoms. Will pl alie him on Librium in addition to Ativan per CIWA protocol. Multiple electrolyte abnormalities: Repleted intravenously. Microcytic anemia: Continues to improve. Hemoglobin 10.9. Iron levels are sl ightly low. We will supplement orally. DVT prophylaxis with subcutaneous heparin - Time Spent with Patient Total time spent is greater than 50% in coordination of care (as documented) at patient's floor/unit and/or counseling patient: Internal Medicine: Result - Labs CBC & Chem 7: 07/09/19 00:14 07/09/19 00:14 Labs: Short CBC 07/09/19 Range/Units 00:14 WBC 5.6 (4.3-11.1) K/mcL Hgb 10.9 L (12.9-16.9) g/dL Hct 35.8 L (37.5-50.1) % Plt Count 210 (140-400) K/mcL Neutrophils # 3.0 (1.6-8.9) K/mcL BMP 07/09/19 00:14 Sodium 138 Potassium 3.6 Chloride 106 Carbon Dioxide 23 BUN 9 Creatinine 0.68 L Glucose 160 H Calcium 7.9 L - ABG Interpretation ABG results: PT/INR, D-dimer PT 14.1 Seconds (9.4-12.1) H 07/08/19 05:33 Consult Discharge Plan - Plan Referrals: NONE,PCP [Primary Care Provider] - (1) Sepsis Qualifiers: Sepsis type: sepsis due to unspecified organism Sepsis acute organ dysfunction status: without acute organ dysfunction Qualified Code(s): A41.9 - Sepsis, unspecified organism (5) Infective endocarditis Qualifiers: Infective endocarditis organism: bacterial Chronicity: acute Qualified Code(s): I33.0 - Acute and subacute infective endocarditis
[2019-07-09 20:52] LABS: Bilirubin,Urine Negative (Negative); Blood,Urine Negative (Negative); Clarity,Urine Clear (Clear); Color,Urine Yellow (Yellow); Glucose,Urine (UA) Normal (Normal); Ketones,Urine Negative (Negative); Leukocyte Esterase,Urine Negative (Negative); Nitrite,Urine Negative (Negative); Protein,Urine Negative (Neg-Trace); Specific Gravity,Urine 1.013 (1.010-1.025); Urobilinogen,Urine Normal (Normal)
[2019-07-10] MEDS: Piperacillin/Tazobactam 3.375 GM in 0.9 % Sodium Chloride Mini Bag 100 ML IVPB SCH ×4 (00:16→23:19)
[2019-07-10] MEDS: *HR* LORazepam 2 MG/ML VIAL IVP PRN ×5 (00:18→23:24)
[2019-07-10] MEDS: *HR* Heparin 5,000 UNIT/ML VIAL SQ SCH ×2 (04:19→17:51)
[2019-07-10 06:39] LABS: Basophils # 0.1 K/mcL (0.0-0.2); Basophils % 1.3 %; Eosinophils # 0.3 K/mcL (0.0-0.6); Eosinophils % 5.7 %; Hematocrit 37.2 % (37.5-50.1); Hemoglobin 11.3 g/dL (12.9-16.9); Immature Granulocytes % 1.5 % (0-4); Lymphocytes # 1.7 K/mcL (0.6-4.6); Lymphocytes % 37.8 %; Mean Corpuscular HGB Conc 30.4 g/dL (31.6-35.5); Mean Corpuscular Volume 82.3 fL (83.0-100.0); Mean Platelet Volume 9.4 fL (9.4-12.4); Monocytes # 0.5 K/mcL (0.0-1.3); Monocytes % 10.1 %; Platelet Count 215 K/mcL (140-400); Red Blood Count 4.52 M/mcL (4.19-5.50); Red Cell Distribution Width 14.7 % (11.5-14.5); Segmented Neutrophils % 43.6 %; White Blood Count 4.6 K/mcL (4.3-11.1)
[2019-07-10 06:58] LABS: BUN/Creatinine Ratio 12 (6-26); Blood Urea Nitrogen 9 mg/dL (6-20); Calcium 8.3 mg/dL (8.6-10.3); Carbon Dioxide 23 mEq/L (23-29); Chloride 108 mEq/L (98-107); Glucose 102 mg/dL (70-105); Osmolality,Calculated 285 (280-300); Potassium 3.8 mEq/L (3.5-5.1); Sodium 138 mEq/L (136-145); eGFR For African Americans > 60 (> 60); eGFR For Non-African Americans > 60 (> 60)
[2019-07-10 07:06] LABS: Platelet Estimate Normal (Normal)
--- NOTE | 2019-07-10 11:59 | Internal Med Progress Note ---
Hospitalist Progress Note - Encounter Date of Encounter: 07/10/19 Time of Encounter: 09:40 - Subjective Interval History: Patient lying down in bed. Continues to complain of pain in right upper extremity. States that he also continues to have withdrawal symptoms. Denies any fevers or chills overnight. No nausea or vomiting. No diarrhea. - Exam Vitals: Temp Pulse Resp BP Pulse Ox 98.1 F 82 17 127/81 100 07/10/19 06:56 07/10/19 06:56 07/10/19 06:56 07/10/19 06:56 07/10/19 06:56 Exam: General: Patient is alert, no acute distress, oriented x 3 Respiratory: Good respiratory effort. Normal breath sounds. No wheezing or crackles. Cardiovascular: Regular rate and rhythm. s1 and s2 normal No clicks, rubs, gallops, or murmurs. No pedal edema Abdomen: Abdomen is soft, nontender. Bowel sounds are present Musculoskeletal: Right upper extremity bandaged. Skin: warm, dry, intact. Neuro: Alert oriented x 3 normal cranial nerves, no focal deficits, no tremors - Assessment and Plan (1) Sepsis Current Visit: Yes Status: Acute (2) Cellulitis of right upper extremity Current Visit: Yes Status: Acute (3) Microcytic anemia Current Visit: Yes Status: Acute (4) Right arm cellulitis Current Visit: Yes Status: Acute (5) Infective endocarditis Current Visit: Yes Status: Suspected (6) History of intravenous drug abuse Current Visit: Yes Status: Acute DVT Prophylaxis: Continue subcutaneous heparin - Summary of Assessment and Plan Summary of Assessment and Plan: Severe Sepsis due to right upper extremity cellulitis and abscess with possible underlying endocarditis: Wound cultures growing gram-positive cocci. We will await final culture results. Continue current antibiotics. Pain control with oxycodone. History of drug abuse: Patient not having any tremors today. He reports feeling like history going through withdrawals. He has been receiving 2 mg of IV Ativan per CIWA protocol. Continue oral Librium. Will wean down Ativan dosage. Multiple electrolyte abnormalities: Repleted intravenously. Microcytic anemia: Hemoglobin 11.3 today. On oral iron supplement DVT prophylaxis with subcutaneous heparin - Time Spent with Patient Total time spent is greater than 50% in coordination of care (as documented) at patient's floor/unit and/or counseling patient: Internal Medicine: Result - Labs CBC & Chem 7: 07/10/19 06:17 07/10/19 06:17 Labs: Short CBC 07/10/19 Range/Units 06:17 WBC 4.6 (4.3-11.1) K/mcL Hgb 11.3 L (12.9-16.9) g/dL Hct 37.2 L (37.5-50.1) % Plt Count 215 (140-400) K/mcL Neutrophils # 2.0 (1.6-8.9) K/mcL BMP 07/10/19 06:17 Sodium 138 Potassium 3.8 Chloride 108 H Carbon Dioxide 23 BUN 9 Creatinine 0.75 Glucose 102 Calcium 8.3 L Urine 07/09/19 Range/Units 20:44 Urine Color Yellow (Yellow) Urine Clarity Clear (Clear) Urine pH 7.0 (5.0-8.0) pH Units Ur Specific Mcgrann 1.013 (1.010-1.025) Urine Protein Negative (Neg-Trace) mg/dL Urine Glucose (UA) Normal (Normal) mg/dL - ABG Interpretation ABG results: PT/INR, D-dimer PT 14.1 Seconds (9.4-12.1) H 07/08/19 05:33 Consult Discharge Plan - Plan Referrals: NONE,PCP [Primary Care Provider] - (1) Sepsis Qualifiers: Sepsis type: sepsis due to unspecified organism Sepsis acute organ dysfunctio n status: without acute organ dysfunction Qualified Code(s): A41.9 - Sepsis, unspecified organism (5) Infective endocarditis Qualifiers: Infective endocarditis organism: bacterial Chronicity: acute Qualified Code(s): I33.0 - Acute and subacute infective endocarditis
[2019-07-10] MEDS ORDERED: *HR* LORazepam 2 MG/ML VIAL IVP SCH (12:00)
[2019-07-10] MEDS: Lactobacillus 1 EACH CAP.SPRINK PO SCH ×2 (12:54→21:59)
[2019-07-11] MEDS: *HR* LORazepam 2 MG/ML VIAL IVP PRN ×2 (03:30→07:31)
[2019-07-11 04:43] LABS: Basophils # 0.1 K/mcL (0.0-0.2); Basophils % 0.9 %; Eosinophils # 0.3 K/mcL (0.0-0.6); Eosinophils % 5.7 %; Hematocrit 36.6 % (37.5-50.1); Hemoglobin 11.3 g/dL (12.9-16.9); Immature Granulocytes % 3.5 % (0-4); Mean Corpuscular HGB Conc 30.9 g/dL (31.6-35.5); Mean Corpuscular Hemoglobin 25.1 pg (28.0-33.3); Mean Corpuscular Volume 81.3 fL (83.0-100.0); Mean Platelet Volume 9.5 fL (9.4-12.4); Monocytes # 0.6 K/mcL (0.0-1.3); Monocytes % 10.9 %; Neutrophils # 2.3 K/mcL (1.6-8.9); Platelet Count 209 K/mcL (140-400); Red Cell Distribution Width 14.9 % (11.5-14.5); White Blood Count 5.4 K/mcL (4.3-11.1)
[2019-07-11 04:58] LABS: BUN/Creatinine Ratio 15 (6-26); Blood Urea Nitrogen 13 mg/dL (6-20); Calcium 8.1 mg/dL (8.6-10.3); Carbon Dioxide 23 mEq/L (23-29); Chloride 110 mEq/L (98-107); Glucose 122 mg/dL (70-105); Osmolality,Calculated 287 (280-300); Potassium 3.5 mEq/L (3.5-5.1); Sodium 138 mEq/L (136-145); eGFR For African Americans > 60 (> 60); eGFR For Non-African Americans > 60 (> 60)
[2019-07-11 05:29] LABS: Platelet Estimate Normal (Normal)
[2019-07-11] MEDS: *HR* Heparin 5,000 UNIT/ML VIAL SQ SCH ×2 (07:09→17:14)
[2019-07-11] MEDS: Piperacillin/Tazobactam 3.375 GM in 0.9 % Sodium Chloride Mini Bag 100 ML IVPB SCH ×3 (07:29→17:43)
[2019-07-11] MEDS: Lactobacillus 1 EACH CAP.SPRINK PO SCH ×2 (07:31→20:27)
--- NOTE | 2019-07-11 08:46 | Internal Med Progress Note ---
Hospitalist Progress Note - Encounter Date of Encounter: 07/11/19 Time of Encounter: 09:20 - Subjective Interval History: Patient seen and examined. Reports feeling weakness, nausea, vomiting, and diarrhea that he is attributing to withdrawing from heroine. Patient has also been increasingly more tired over the past 3 days but has been placed on librium. Denies fever, chest pain, SOB, cough, wheeze, constipation, lightheadedness, or dysuria. - Exam Vitals: Temp Pulse Resp BP Pulse Ox 97.4 F L 82 17 102/67 98 07/11/19 07:18 07/11/19 07:18 07/11/19 07:18 07/11/19 07:18 07/11/19 07:18 Exam: Gen: AOx3 Eyes: [place], EOMI. No conjunctivitis Throat: Moist mucous membranes. CV: RRR with no murmur Resp: CTA in all lung colon without crackle GI:Soft, non-tender with no organomegally, or masses palpated Neuro: CN II-XII with no focal deficits. Strength difficult to assess due to tiredness Derm: Track webb present on vita extremities due to IV drug use. No rashes, cuts or abrasions Ext: Right arm placed in clean, dry dressing. DP 2/4 palpated vita with no Lower extremity edema present vita - Assessment and Plan (1) Sepsis Current Visit: Yes Status: Acute Assessment and Plan: -likely secondary to the abscess on the right arm but unable to rule out infectious process such as pneumonia or endocarditis - 3 blood cultures drawn 07/07 - Lactic acid 0.6 on 07/07 - Transthoracic Echocardiogram on 07/07 showed Oscillating echodensity on the ventricular side of the anterior Mitral valve leaf suggestive of vegetation. LVEF 55% with moderate left ventricle diastolic dysfunction - SHEEBA 07/08 unable to be performed with versed due to gag reflex - Woundfrom 07/08 positive for Staph Aureus Plan: - SHEEBA planned with anaesthesia scheduled today - Consult antibiotics Zosyn 3.375 g and Cont 1.25 g IV vancomycin - Cont oxycodone for pain control (2) Abscess of right arm Current Visit: Yes Status: Acute Assessment and Plan: -Erythematous 4 cm area of cellulitis vs abscess on right arm in the antecubital fossa -X Ray R elbow 07/07 Large amount of soft tissue swelling with no acute or focal bony abnormality -X Ray R forearm 07/07 Soft tissue swelling without air or radiopaque foreign body seen. -CT scan R upper extremity 07/07 Vague area of abnormal enhancement near the antecubital fossa of the right elbow measuring about 4.2 x 3.7 cm suspicious for abscess or phlegmon. No radiopaque foreign body. Cellulitis of the lower arm and proximal forearm. No osseous changes of osteomyelitis. Consider MRI for c omplete soft tissue characterization. - Ortho performed I/D at bedside on 07/07 Plan: -Cont IV abx listed above -Pain control wwith oxycodone - Dressing per ortho recommendation (3) Microcytic anemia Current Visit: Yes Status: Acute Assessment and Plan: Hemoglobin 11.3 today - Iron study 07/09 showed Iron 56, % saturation 25, Transferrin 163 and ferritin 189 Plan: -Cont iron supplement (4) History of intravenous drug abuse Current Visit: Yes Status: Acute Assessment and Plan: -IV drug use for 7 years -Failed outpatient rehab - Currently experiencing withdraw symptoms Plan: -discuss potential inpatient rehab at the time of discharge -Continue oral Librium - Cont wean down Ativan dosage. DVT Prophylaxis: Continue subcutaneous heparin - Time Spent with Patient Total time spent is greater than 50% in coordination of care (as documented) at patient's floor/unit and/or counseling patient: Internal Medicine: Result - Labs CBC & Chem 7: 07/11/19 04:04 07/11/19 04:04 Labs: Short CBC 07/11/19 Range/Units 04:04 WBC 5.4 (4.3-11.1) K/mcL Hgb 11.3 L (12.9-16.9) g/dL Hct 36.6 L (37.5-50.1) % Plt Count 209 (140-400) K/mcL Neutrophils # 2.3 (1.6-8.9) K/mcL BMP 07/11/19 04:04 Sodium 138 Potassium 3.5 Chloride 110 H Carbon Dioxide 23 BUN 13 Creatinine 0.86 Glucose 122 H Calcium 8.1 L - ABG Interpretation ABG results: PT/INR, D-dimer PT 14.1 Seconds (9.4-12.1) H 07/08/19 05:33 Consult Discharge Plan - Plan Referrals: NONE,PCP [Primary Care Provider] - (1) Sepsis Qualifiers: Sepsis type: sepsis due to unspecified organism Sepsis acute organ dysfunct ion status: without acute organ dysfunction Qualified Code(s): A41.9 - Sepsis, unspecified organism
--- NOTE | 2019-07-11 09:01 | Anesthesia Evaluation PreOp ---
Date of Encounter: 07/11/19 Time of Encounter: 10:04 - Past History Planned Operation: SHEEBA Cardiac History: Arrhythmia (hx A-fib), Other (TTE shows potential vegetation anterior leaflet mitral valve, Cardiology unable to perform SHEEBA due to tolerance to sedation secondary to IVDA) Pulmonary History: Denies Any Significant HX TECHNICAL SERVICES CONSULTANT History: Denies Any Significant HX Other Medical History: Other (IVDA with heroin and meth. Currently has + blood cultures with staph from his IVDA) Anesthesia History: No Prior Anesthetic Complications, Past Anesthesia (appy, knee sx) Alcohol Use: rarely Drug use: opiates, methamphetamine, IV Drug Use Medications and Allergies No Known Home Drugs 07/07/19 [History] Allergy/AdvReac Type Severity Reaction Status Date / Time No Known Allergies Allergy Verified 07/07/19 17:30 - Meds/Allergy Pre-op Review Medications Reviewed: Yes Allergies Reviewed: Yes Beta Blockers on Current Med List: No Anesthesia Results - Labs 07/11/19 04:04 07/11/19 04:04 - Imaging EKG: report reviewed (Sinus tachycardia Probable anteroseptal infarct, old) Anesthesia Exam Selected Entries 07/11/19 07:18 Temperature 97.4 F L Pulse Rate 82 Respiratory Rate 17 Blood Pressure 102/67 O2 Sat by Pulse Oximetry 98 Oxygen Delivery Method Room Air Weight: 95kg - HEENT Pupil (Motor): EOMI Mallampati: II Teeth: Normal Oral Opening: Less than or equal to 3 - TECHNICAL SERVICES CONSULTANT LOC: Oriented TECHNICAL SERVICES CONSULTANT Motor: Normal RUE, Normal LUE, Normal RLE, Normal LLE, Normal Face TECHNICAL SERVICES CONSULTANT Sensory: Normal: RUE, LUE, RLE, LLE, Face - Cardiac Rhythm: Regular Murmur: None - Pulmonary Breath Sounds: bilateral Clear Respiratory Effort: Symmetrical Anesthesia Assess/Plan ASA Score: 3 Level of consciousness: Cooperative, Oriented Anesthetic Plan: MAC Monitoring Plan: Standard Monitors Recovery Plan: Other (agrees to MAC, understands he may require GA)
--- NOTE | 2019-07-11 09:09 | Infectious Disease Consult ---
Infectious Disease-Consult - Encounter Date/Time Date of Encounter: 07/11/19 Time of Encounter: 09:04 - Data of Consult Patient: new to practice Reason for consult: "right arm abscess. IV drug abuse hx. possible vegetation seen on TTE. Awaiting SHEEBA" Consult date: 07/11/19 Requesting Physician: Delvin Augustine MD Primary Care Provider: PCP NONE - HPI HPI: Mr. Amado is a 43-year-old male with past medical history of A. fib. The patient was admitted to the hospital 07/07/19 for right arm abscess and cellulitis , fever, and sepsis. We are consulted 07/11/19 for further workup and treatment recommendations for possible mitral valve vegetation. Briefly, the patient is a 43-year-old male with past medical history as stated above. The patient presents to [facility] department with a 5 day history of right arm swelling after he injected heroin and methamphetamine. On arrival, he was febrile and tachycardic and tachypneic. His white blood cell count was normal. Lactic acid and renal function within normal limits. Total bili was mildly elevated at 1.2. Troponin was negative. Urinalysis was negative. Urine drug screen was positive for opiates and amphetamines. Her right upper extremity x- ray that showed soft tissue swelling, but no other acute abnormalities. Chest x-ray showed a patchy right lung opacity concerning for pneumonia. He had a CTA of the chest that was negative for acute abnormality. CT of the right upper extremity that was positive for abscess versus phlegmon. Blood cultures were obtained 3 sets and are no growth to date. He was started empirically on IV vancomycin and Zosyn and was admitted to the hospital for further evaluation. Since admission, the patient's white blood cell count has remained normal. His fevers and tachycardia have resolved. He had a transthoracic echocardiogram showed an oscillating echodensity on the ventricle side of the anterior mitral valve. SHEEBA was attempted, but the patient was not able to be adequately sedated. She had a bedside I&D of the right upper extremity by orthopedics. Cultures are positive for MSSA. He is scheduled to undergo SHEEBA later today with anesthesia. Currently, he is on vancomycin and Zosyn (day 5). We have been asked to evaluate and make further recommendations. During my exam today, the patient endorses a history as stated above. He states that the week prior to admission he injected heroin and meth into his right upper extremity and thinks he missed the vein. He reports about 5 days prior to admission he again developed right arm redness, swelling, and pain that progressively worse. He denies any fevers, chills, rigors. Denies any headache or neck pain. Denies any nausea, vomiting, diarrhea, constipation. Denies abdominal pain or urinary complaints. Denies chest pain, shortness of breath, or cough. States his appetite has been okay. States the right arm pain is improved since having the area drained. He states she has never been diagnosed with endocarditis and has never been treated for such. The patient was at home with his significant other. 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 Denies tobacco or alcohol use. Reports daily use of IV heroin and methamphetamine. Denies any known chronic infectious diseases. Denies any recent travel outside the [facility]. - ROS Review of Systems: All systems reviewed and no additional remarkable complaints except as stated. - Results CBC & Chem 7: 07/11/19 04:04 07/11/19 04:04 - Exam Vitals: Temp Pulse Resp BP Pulse Ox 97.4 F L 82 17 102/67 98 07/11/19 07:18 07/11/19 07:18 07/11/19 07:18 07/11/19 07:18 07/11/19 07:18 Exam: Head: Atraumatic, normal inspection, normocephalic. Eye: EOMI, PERRLA, no scleral icterus noted. No subconjunctival hemorrhage noted. ENT: Mucous membranes moist. No odontogenic infection noted. Neck: Normal inspection, no meningismus. Respiratory: Clear to auscultation. No rales, respiratory distress, rhonchi, or wheezes noted. Cardiovascular: Regular rate and irregular rhythm, S1 and S2 audible. No murmurs, rubs, or gallops. GI: Soft, nondistended, normal bowel sounds. Nontender. Extremities:No joint swelling, pedal edema, or tenderness noted. Back: Normal inspection. No vertebral tenderness noted. Neurological: Alert, oriented 3, no focal deficits. Psychiatric: normal affect, normal mood. Skin: Dry, intact, warm. Normal color. No rashes. No subconjunctival hemorrhage noted. Cephalexin [Keflex] 500 mg PO QID 3 Days #14 capsule 09/09/19 [Rx] Ferrous Sulfate 325 mg PO BIDWM 30 Days #60 tablet 07/11/19 [Rx] Lactobacillus [Culturelle] 1 each PO BID 30 Days #30 cap.sprink 07/11/19 [Rx] Ondansetron ODT [Zofran ODT] 4 mg SL Q8HR PRN 4 Days #12 tab.rapdis 07/11/19 [Rx] Allergy/AdvReac Type Severity Reaction Status Date / Time No Known Allergies Allergy Verified 07/07/19 17:30 - Assessment and Plan (1) Sepsis Status: Resolved Patient had 3 sepsis criteria on admission. Likely secondary to right upper extremity abscess. Improved. Tachycardia and tachypnea resolved. Afebrile. WBC remains normal. Blood cultures drawn 07/07/19 are no growth to date 3 sets. Qualifiers: Sepsis type: sepsis due to unspecified organism Sepsis acute organ dysfunction status: without acute organ dysfunction Qualified Code(s): A41.9 - Sepsis, unspecified organism SNOMED Code(s): 13704388 (2) Abscess of right arm Status: Acute Location: RUE. Causative organism: MSSA. Likely secondary to IVDU. RUE x-rays showed soft tissue swelling, but no other acute abnormality. RUE CT showed findings concerning for absess vs. phlegmon. Ortho consulted. Status post bedside I & D 07/07/[address] Santamaria. Cultures as above. Currently on Vanc and Zosyn. SNOMED Code(s): 10113444505860608 (3) Cellulitis of right upper extremity Status: Acute Location: RUE. Causative organism: MSSA. Likely secondary to IVDU. Improved per patient report. Currently on Vanc and Zosyn. SNOMED Code(s): 297036106 (4) Infective endocarditis Status: Suspected Causative organism: Unclear. TTE showed an oscillating echodensity on the ventricle side of the anterior mitral valve. SHEEBA attempted, but patient was not able to be adequately sedated. SHEEBA planned for later today. No endocarditis stigmata noted on exam. Blood cultures drawn 07/07/19 are NGTD x 3 sets. The patient has one major and one minor Modified Tilley's criteria. Currently on Vanc and Zosyn. Qualifiers: Infective endocarditis organism: bacterial Chronicity: acute Qualified Code(s): I33.0 - Acute and subacute infective endocarditis SNOMED Code(s): 538005399 (5) History of intravenous drug abuse Status: Acute Reports daily use of IV Heroine and methamphetamine. UDS positive. Check HIV and Hepatitis B and C serologies. SNOMED Code(s): 59750536868046142 (6) A-fib Status: Acute Non-compliant with anti-arrhythmic. Qualifiers: Atrial fibrillation type: chronic Qualified Code(s): I48.2 - Chronic atrial fibrillation SNOMED Code(s): 59695685 - Recommendations Recommendations: Await blood cultures to finalize. Check rheumatoid factor. Check HIV. Check hepatitis B and C serologies. Await SHEEBA results. Wound care per ortho's recommendations. Continue Vancomycin IV. Pharmacy to dose. Goal trough ~15. Continue Zosyn 3.375 grams IV Q8H. Duration of treatment depends on the clinical picture. Monitor renal function and for drug toxicity and dose-adjust antibiotics. Past Med Surg Social Fam HX - Past Medical History Attestation: Yes The following information was validated with the patient. Source: patient, old records reviewed, nursing notes reviewed Medical history: atrial fibrillation Additional medical history: drug abuse Psychiatric history: no psych history - Past Surgical History Surgical History: appendectomy Additional surgical history: left knee-cartliage - Social History Smoking Status: Never smoker Smokeless Tobacco Status: No Alcohol use: rarely Drug use: opiates, methamphetamine, IV Drug Use Occupational status: employed Current living situation: Home - Independent Activity Level: Independent ambulation Recent Out of Country Travel Within the Last 8 Weeks: No Exposure or Possible Exposure to Illness During Travel: No Consult Discharge Plan - Plan Instructions: Cephalexin (By mouth), Cellulitis (DC), Viral Hepatitis C (DC) Referrals: NONE,PCP [Primary Care Provider] - Prescriptions: Lactobacillus [Culturelle] 1 each PO BID 30 Days #30 cap.sprink Ferrous Sulfate 325 mg PO BIDWM 30 Days #60 tablet Cephalexin [Keflex] 500 mg PO QID 3 Days #14 capsule Ondansetron ODT [Zofran ODT] 4 mg SL Q8HR PRN 4 Days #12 tab.rapdis PRN Reason: Nausea And Vomiting - Attending Attestation I have personally performed a face to face evaluation on this patient. I have reviewed and agree with the care plan. 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 Please refer to Lindsay's note for full details. Agree with above history of present illness review of system and physical exam findings. Assessment and plan: Sepsis Abscess of the right arm status post I&D causative organism MSSA secondary to IV drug use Incidental finding on TTE was negative SHEEBA Somnolence IV drug use Hepatitis C Recommendations Discussed with the hospitalist team, patient is an IV drug user and we cannot send him home on IV antibiotics. He should had no bacteremia. I am comfortable with oral antibiotics if orthopedic/hand surgery are okay with it. I recom mended to the hospitalist team to speak with or third lives okay patient to be discharged on Keflex.
[2019-07-11] MEDS ORDERED: Aminoglycoside Consult 1 EACH MC ONE (09:32)
[2019-07-11] MEDS ORDERED: 0.9 % Sodium Chloride 500 ML IVC ONE (11:06)
[2019-07-11 13:36] LABS: Rheumatoid Factor < 10 IU/mL (Less than 14)
[2019-07-11 14:18] LABS: Hepatitis B Surface Antibody 3.63 mIU/mL
[2019-07-11 14:30] LABS: Hepatitis B Surface Antigen Nonreactive (Nonreactive)
[2019-07-11 15:03] LABS: HIV-1&2 Antibody & p24 Ag Nonreactive (Nonreactive)
--- NOTE | 2019-07-11 16:03 | Discharge Summary ---
<Jace Hurd Gregory - Last Filed: 07/11/19 17:58> - NOTES TO OUTPATIENT PROVIDER Notes to Outpatient Provider: Blood cultures x2 with NGTD at time of discharge. Hepatitis C testing pending at time of discharge. Recommend follow up with PCP regarding these results Orders not resulted at time of discharge: Pending orders 07/07/19 00:30 Culture,Blood [BC] Stat 07/07/19 06:02 Culture,Blood [BC] Stat 07/11/19 12:54 Coxiella burnetii Q-Fever Rflx Routine Hepatitis B Core Ab Total Routine Date of Encounter: 07/11/19 Time of Encounter: 16:01 - Discharge Diagnosis (1) Right arm cellulitis Priority: Primary Status: Acute (2) Sepsis Priority: Secondary Status: Acute Qualifiers: Sepsis type: sepsis due to unspecified organism Sepsis acute organ dysfunction status: without acute organ dysfunction Qualified Code(s): A41.9 - Sepsis, unspecified organism (3) Microcytic anemia Priority: Secondary Status: Acute (4) History of intravenous drug abuse Priority: Secondary Status: Acute (5) Cellulitis of right upper extremity Priority: Primary Status: Acute Hospital course: Mr. Amado is a 43 year old male who presented to the Emergency room on for right arm pain and swelling on 07/07/19. The patient reported associated fever, chills, drenching night sweats, worsening shortness of breath, chest pain on exertion, and intermittent headache. He is a chronic IV drug user of heroin and methamphetamine whose last injection was 07/06. Had failed outpatient rehab. Denied alcohol or smoking. On presentation he met SIRS criteria with tachycardia and tachypnea. Blood cultures were obtained. CBC showed WBC 8.0, Hgb 9.8, and Platelets 156. CMP showed 134 Na, 3.3 K, BUN 10, Creatinine 0.72. Lactic acid level was 0.6. Normal saline 30 mL/kg bolus was given and the patient was started on empiric Zosyn 3.375 g IV Q8 and 1.25 g IV vancomycin for cellulitis of the right arm. X Ray of the R elbow showed large amount of soft tissue swelling with no acute or focal bony abnormality. X Ray of the R forearm showed soft tissue swelling without air or radiopaque foreign body seen. X ray of humerus was negative. CT scan R upper extremity on admission showed a vague area of abnormal enhancement near the antecubital fossa of the right elbow measuring about 4.2 x 3.7 cm suspicious for abscess or phlegmon. No radiopaque foreign body was identified. The patient was admitted for sepsis likely secondary to abscess on the right arm. Upon admission ortho was consulted and performed a bedside I/D on 07/08. This drainage significantly reduced the patients pain, and was bandaged per orthopedic recommendations. Empiric IV Vancomycin and zosyn were continued. Wound culture was obtained during I&D which grew MSSA. Blood cultures x2 with NGTD at the time of discharge. Due to history of IV drug abuse a transthoracic Echocardiogram was ordered on 07/07 to rule out endocarditis. This revealed an oscillating echo density on the ventricular side of the anterior Mitral valve leaf suggestive of vegetation. LVEF 55% with moderate left ventricle diastolic dysfunction. A follow up SHEEBA on 07/08 with conscious sedation was attempted but unable to be performed with versed due to gag reflex and tolerance to sedating meds. The SHEEBA was performed with full sedation by anesthesia on 07/11 which showed no valvular vegetation, and no appreciable valve dysfunction. The infectious disease team was also consulted during this time for assistance with possible endocarditis. They evaluated the patient and obtained Hepatitis and HIV testing. Once the SHEEBA results came back as normal, they felt po abx would be adequate for coverage of MSSA wound. During admission an iron study was obtained on 07/09 for microcytic anemia. This revealed iron deficiency. The pt was given BID iron supplementation and recommended to continue on discharge. Patient provided with prescription for po Keflex to complete a 7 day course of abx. Dressing changes per orthopedics recommendations. Discharge discussed with: patient, nurse, wellness consultant - Time Spent with Patient Total time spent providing and/or coordinating discharge services: - Discharge Medications Prescriptions: New Lactobacillus [Culturelle] 1 each PO BID 30 Days #30 cap.sprink Ferrous Sulfate 325 mg PO BIDWM 30 Days #60 tablet Cephalexin [Keflex] 500 mg PO QID 3 Days #14 capsule Ondansetron ODT [Zofran ODT] 4 mg SL Q8HR PRN 4 Days #12 tab.rapdis PRN Reason: Nausea And Vomiting Home Medications: Cephalexin [Keflex] 500 mg PO QID 3 Days #14 capsule 07/11/19 [Rx] Ferrous Sulfate 325 mg PO BIDWM 30 Days #60 tablet 07/11/19 [Rx] Lactobacillus [Culturelle] 1 each PO BID 30 Days #30 cap.sprink 07/11/19 [Rx] Ondansetron ODT [Zofran ODT] 4 mg SL Q8HR PRN 4 Days #12 tab.rapdis 07/11/19 [Rx] Allergies/Adverse Reactions: Allergy/AdvReac Type Severity Reaction Status Date / Time No Known Allergies Allergy Verified 07/07/19 17:30 Date of admission: 07/07/19 05:04 Primary care physician: PCP NONE Consults: 07/07/19 04:23 Consult to Physician [CONS] Stat Consulting Provider: Arturo Santamaria Reason for Consult: R. Arm/Forearm Abscess Call Completed: Yes 07/07/19 17:54 Consult to Medical Records Specialist [CONS] Routine Reason for SW Consult: drug abuse 07/08/19 16:47 Consult to Infectious Diseases [CONS] Routine Consulting Provider: Infectious Disease Ke[place] Reason for Consult: right arm abscess. IV drug abuse hx. possible vegetation seen on TTE. Awaiting SHEEBA Call Completed: Yes - Constitutional Vitals: Temp Pulse Resp BP Pulse Ox 98.2 F 78 19 102/68 95 07/11/19 15:59 07/11/19 15:59 07/11/19 15:59 07/11/19 15:59 07/11/19 15:59 General appearance: Present: A&O X 3, pleasant, no acute distress, answers questions appropriately Exam: General: Patient is alert, no acute distress, oriented x 3 Respiratory: Good respiratory effort. Normal breath sounds. No wheezing or crackles. Cardiovascular: Regular rate and rhythm. s1 and s2 normal No clicks, rubs, gallops, or murmurs. No pedal edema Abdomen: Abdomen is soft, nontender, non-distended Musculoskeletal: Right upper extremity bandaged. Skin: warm, dry, intact. Neuro: Alert oriented x 3 normal cranial nerves, no focal deficits, no tremors - Patient Status Disposition: Home, Self-Care Condition: Good Functional capacity at discharge: independent ambulation Overall status at discharge: patient is back to baseline - Discharge Instructions Instructions: Cephalexin (By mouth), Cellulitis (DC) Follow Up With: NONE,PCP [Primary Care Provider] - - Diet and Activity Activity: increase activity as tolerated, resume usual activities as tolerated Diet: regular diet <Delvin Augustine - Last Filed: 07/12/19 08:40> - NOTES TO OUTPATIENT PROVIDER Notes to Outpatient Provider: Patient has a positive hepatitis C antibody. Recommend outpatient follow-up with infectious disease for further evaluation and management. Orders not resulted at time of discharge: Pending orders 07/07/19 00:30 Culture,Blood [BC] Stat 07/07/19 06:02 Culture,Blood [BC] Stat 07/11/19 12:54 Coxiella burnetii Q-Fever Rflx Routine Hepatitis B Core Ab Total Routine Date of Encounter: 07/11/19 Time of Encounter: 16:07 - Discharge Diagnosis (1) Right arm cellulitis Status: Acute (2) Sepsis Status: Acute Qualifiers: Sepsis type: sepsis due to unspecified organism Sepsis acute organ dysfunction status: without acute organ dysfunction Qualified Code(s): A41.9 - Sepsis, unspecified organism (3) Microcytic anemia Status: Acute (4) History of intravenous drug abuse Status: Acute (5) Cellulitis of right upper extremity Status: Acute Hospital course: Mr. Amado is a 43 year old male - Time Spent with Patient Total time spent providing and/or coordinating discharge services: Date of admission: 07/07/19 05:04 Primary care physician: PCP NONE Consults: 07/07/19 04:23 Consult to Physician [CONS] Stat Consulting Provider: Arturo Santamaria Reason for Consult: R. Arm/Forearm Abscess Call Completed: Yes 07/07/19 17:54 Consult to Medical Records Specialist [CONS] Routine Reason for SW Consult: drug abuse 07/08/19 16:47 Consult to Infectious Diseases [CONS] Routine Consulting Provider: Infectious Disease Ke[place] Reason for Consult: right arm abscess. IV drug abuse hx. possible vegetation seen on TTE. Awaiting SHEEBA Call Completed: Yes - Constitutional Vitals: Temp Pulse Resp BP Pulse Ox 98.2 F 78 19 102/68 95 07/11/19 15:59 07/11/19 15:59 07/11/19 15:59 07/11/19 15:59 07/11/19 15:59 - Attending Attestation I saw evaluated and examined this patient and reviewed objective data including labs and my medical decision-making was reviewed with the Resident Physician. I agree with the documented findings, disposition and discharge plan as described except to any changes set forth below. We independently had [id number] contact with the patient. Patient with history of IV drug abuse was hospitalized here with pain and swelling in his right upper extremity along with cellulitis. He was diagnosed with cellulitis and abscess involving his right forearm. He was treated with incision and drainage by orthopedics and with IV antibiotics. Wound cultures are growing staph aureus. Initially 2-D echocardiogram suggested possible vegetation. However at transesophageal echocardiogram done today did not show any vegetations. Patient is stable to be discharged home with cephalexin per infectious disease recommendations. Time spent on discharge: 5 min
[2019-07-11 18:27] LABS: Hepatitis C Virus Antibody Reactive (Nonreactive)
[2019-07-12] MEDS: Piperacillin/Tazobactam 3.375 GM in 0.9 % Sodium Chloride Mini Bag 100 ML IVPB SCH ×2 (00:01→09:20)
[2019-07-12] MEDS: *HR* Heparin 5,000 UNIT/ML VIAL SQ SCH (04:51)
[2019-07-12 07:34] VITALS: BP 105/64
--- NOTE | 2019-07-12 09:08 | Internal Med Progress Note ---
<KatiaKarma E - Last Filed: 07/12/19 09:05> Hospitalist Progress Note - Encounter Date of Encounter: 07/12/19 Time of Encounter: 08:30 - Subjective Interval History: Mr. Amado is a 43-year-old male initially presented for right arm abscess status post bedside I&D Patient was seen and examined at bedside today and is in no acute distress, resting comfortably. He denies any chest pain, shortness of breath, abdominal p ain, nausea, vomiting, diarrhea or diarrhea, weakness. He does state that he still has some right arm pain. - Exam Vitals: Temp Pulse Resp BP Pulse Ox 97.7 F 82 16 105/64 95 07/12/19 07:30 07/12/19 07:30 07/12/19 07:30 07/12/19 07:30 07/12/19 07:30 Exam: General: AAO 3, no acute distress, answers questions appropriately Head: normocephalic, atraumatic Eyes: [place], no icterus Cardio: RRR, no mumurs, rubs, or gallops Respiratory: CTAB, no wheezing, rhonchi, rales Abd: normal bowel sounds, no guarding or rigidity Extremities: no pedal edema, pulses equal bilaterally, warm right arm bandage and Anjel bandage, slightly swollen compared to left arm. Skin: warm, dry, intact - Assessment and Plan (1) Right arm cellulitis Status: Acute Assessment and Plan: due to right upper extremity cellulitis and abscess with possible underlying endocarditis: Endocarditis ruled out due to echocardiogram Wound cultures growing gram-positive cocci. Home on Keflex (2) Sepsis Status: Resolved Assessment and Plan: due to right upper extremity cellulitis and abscess see above (3) Microcytic anemia Status: Chronic Assessment and Plan: Continue oral iron supplement (4) History of intravenous drug abuse Status: Acute Assessment and Plan: Patient was treated with [facility] protocol for IV drug use history Drug of choice Heroin Last usage day of admission Patient currently well and is unlikely to be going through active withdraw at this time DVT Prophylaxis: subcutaneous heparin - Time Spent with Patient Total time spent is greater than 50% in coordination of care (as documented) at patient's floor/unit and/or counseling patient: Internal Medicine: Result - Labs CBC & Chem 7: 07/11/19 04:04 07/11/19 04:04 - ABG Interpretation ABG results: PT/INR, D-dimer PT 14.1 Seconds (9.4-12.1) H 07/08/19 05:33 Consult Discharge Plan - Plan Instructions: Cephalexin (By mouth), Cellulitis (DC), Viral Hepatitis C (DC) Referrals: NONE,PCP [Primary Care Provider] - Prescriptions: Lactobacillus [Culturelle] 1 each PO BID 30 Days #30 cap.sprink Ferrous Sulfate 325 mg PO BIDWM 30 Days #60 tablet Cephalexin [Keflex] 500 mg PO QID 3 Days #14 capsule Ondansetron ODT [Zofran ODT] 4 mg SL Q8HR PRN 4 Days #12 tab.rapdis PRN Reason: Nausea And Vomiting <Delvin Augustine - Last Filed: 07/12/19 15:04> Hospitalist Progress Note - Encounter Date of Encounter: 07/12/19 - Exam Vitals: Temp Pulse Resp BP Pulse Ox 97.7 F 82 16 105/64 95 07/12/19 07:30 07/12/19 07:30 07/12/19 07:30 07/12/19 07:30 07/12/19 07:30 - Assessment and Plan (1) Right arm cellulitis Status: Acute (2) Sepsis Status: Resolved (3) Microcytic anemia Status: Chronic (4) History of intravenous drug abuse Status: Acute (5) Cellulitis of right upper extremity Status: Acute - Time Spent with Patient Total time spent is greater than 50% in coordination of care (as documented) at patient's floor/unit and/or counseling patient: Internal Medicine: Result - Labs CBC & Chem 7: 07/11/19 04:04 07/11/19 04:04 - ABG Interpretation ABG results: PT/INR, D-dimer PT 14.1 Seconds (9.4-12.1) H 07/08/19 05:33 - Attending Attestation Patient was discharged yesterday but remained in the hospital overnight as he was very somnolent postanesthesia. He was apparently doing much better today and left the hospital this morning before I was able to see him. <Karma Montalvo - Last Filed: 07/12/19 09:05> (2) Sepsis Qualifiers: Sepsis type: sepsis due to unspecified organism Sepsis acute organ dysfuncti on status: without acute organ dysfunction Qualified Code(s): A41.9 - Sepsis, unspecified organism <Delvin Augustine - Last Filed: 07/12/19 15:04> (2) Sepsis Qualifiers: Sepsis type: sepsis due to unspecified organism Sepsis acute organ dysfunction status: without acute organ dysfunction Qualified Code(s): A41.9 - Sepsis, unspecified organism
[2019-07-12] MEDS: Lactobacillus 1 EACH CAP.SPRINK PO SCH (09:26)
[2019-07-12] MEDS ORDERED: Lidocaine 2% Syringe 100 MG/5 ML IV ONE (09:32)
[2019-07-12] MEDS ORDERED: cephALEXin 500 MG CAPSULE PO SCH (09:32)
[2019-07-12] MEDS ORDERED: *HR* Propofol 500 MG/50 ML BOTTLE IVC ONE (09:32)
[2019-07-12 15:16] LABS: Hepatitis B Core Ab Total NEGATIVE (Negative)
== END 2019-07-12 09:33 | disposition home or self-care (01) | DRG 710 ==
LOC: EMEROOARM 23:21 → 2ANU 07-07 05:04 → SUATTDRO 07-07 05:04 → 2ANU 07-07 05:41
PROVIDERS: ADMIT Internal Medicine; ATTEND Internal Medicine

== ENCOUNTER 2019-08-25 16:48 | Inpatient (IN) ==
[2019-08-25] MEDS ORDERED: Piperacillin/Tazobactam 3.375 GM in 0.9 % Sodium Chloride Mini Bag 100 ML IVPB ONE (17:16)
[2019-08-25] MEDS ORDERED: Isovue-370 500 ML BOTTLE IVP ONE (17:16)
[2019-08-25] MEDS ORDERED: Ondansetron 4 MG/2 ML VIAL IVP ONE (17:16)
[2019-08-25] MEDS ORDERED: Tdap (Boostrix) Vaccine 0.5 ML SYRINGE IM ONE (17:16)
[2019-08-25 18:17] LABS: Basophils % 0.6 %; Eosinophils # 0.1 K/mcL (0.0-0.6); Eosinophils % 1.8 %; Hematocrit 39.2 % (37.5-50.1); Hemoglobin 12.7 g/dL (12.9-16.9); Immature Granulocytes % 0.5 % (0-4); Lymphocytes # 1.3 K/mcL (0.6-4.6); Lymphocytes % 19.9 %; Mean Corpuscular HGB Conc 32.4 g/dL (31.6-35.5); Mean Corpuscular Hemoglobin 26.2 pg (28.0-33.3); Mean Corpuscular Volume 80.8 fL (83.0-100.0); Mean Platelet Volume 9.5 fL (9.4-12.4); Monocytes # 0.8 K/mcL (0.0-1.3); Monocytes % 11.3 %; Neutrophils # 4.4 K/mcL (1.6-8.9); Platelet Count 238 K/mcL (140-400); Red Blood Count 4.85 M/mcL (4.19-5.50); Segmented Neutrophils % 65.9 %; White Blood Count 6.6 K/mcL (4.3-11.1)
[2019-08-25 18:19] LABS: INR 1.1; Prothrombin Time 12.6 Seconds (9.4-12.1)
[2019-08-25 18:22] LABS: Activated Partial Thrombo Time 21.6 Seconds (26.0-36.0)
[2019-08-25] MEDS: 0.9 % Sodium Chloride 1,000 ML IVC SCH ×2 (18:28→19:55)
[2019-08-25] MEDS ORDERED: *HR* LORazepam 2 MG/ML VIAL IVP ONE ×2 (18:58→20:51)
[2019-08-25 19:13] LABS: Amphetamine Screen,Urine Positive ng/mL (Cutoff=1000); Barbiturate Screen,Urine Negative ng/mL (Cutoff=200); Benzodiazepines Screen,Urine Negative ng/mL (Cutoff=200); Bilirubin,Urine Negative (Negative); Blood,Urine Negative (Negative); Cannabinoid Screen,Urine Negative ng/mL (Cutoff = 50); Clarity,Urine Clear (Clear); Cocaine Screen,Urine Negative ng/mL (Cutoff= 300); Color,Urine Yellow (Yellow); Glucose,Urine (UA) Normal (Normal); Ketones,Urine Negative (Negative); Leukocyte Esterase,Urine Negative (Negative); Nitrite,Urine Negative (Negative); Opiate Screen,Urine Negative ng/mL (Cutoff=300); Phencyclidine Screen,Urine Negative ng/mL (Cutoff=25); Protein,Urine Negative (Neg-Trace); Specific Gravity,Urine 1.015 (1.010-1.025); Urobilinogen,Urine >=8.0 mg/dL (Normal)
[2019-08-25 19:23] LABS: BUN/Creatinine Ratio 20 (6-26); Blood Urea Nitrogen 12 mg/dL (6-20); Carbon Dioxide 29 mEq/L (23-29); Chloride 106 mEq/L (98-107); Glucose 80 mg/dL (70-105); Potassium 3.5 mEq/L (3.5-5.1); Sodium 138 mEq/L (136-145); eGFR For African Americans > 60 (> 60); eGFR For Non-African Americans > 60 (> 60)
[2019-08-25 19:24] LABS: C-Reactive Protein 12 mg/L (Less than 10); Calcium 8.4 mg/dL (8.6-10.3); Osmolality,Calculated 285 (280-300)
[2019-08-25] MEDS ORDERED: *HR* LORazepam 2 MG/ML VIAL IVP PRN (21:10)
[2019-08-25] MEDS ORDERED: Ketorolac 30 MG/ML VIAL IVP ONE (22:21)
[2019-08-25] MEDS ORDERED: *HR* Methadone 10 MG TABLET PO ONE (22:21)
[2019-08-25] MEDS ORDERED: traMADol 50 MG TABLET PO PRN (22:23)
[2019-08-25] MEDS ORDERED: Acetaminophen 325 MG TABLET PO PRN (22:23)
[2019-08-26] MEDS: Piperacillin/Tazobactam 3.375 GM in 0.9 % Sodium Chloride Mini Bag 100 ML IVPB SCH ×4 (00:14→23:44)
[2019-08-26] MEDS: Ringers Solution, Lactated 1,000 ML IVC SCH ×2 (00:14→05:01)
[2019-08-26] MEDS: Ondansetron 4 MG/2 ML VIAL IVP PRN ×3 (01:55→23:44)
[2019-08-26] MEDS ORDERED: *HR* LORazepam 2 MG/ML VIAL IVP ONE (03:05)
[2019-08-26] MEDS ORDERED: traMADol 50 MG TABLET PO PRN (08:05)
[2019-08-26] MEDS: Ketorolac 30 MG/ML VIAL IVP PRN ×2 (12:57→21:21)
[2019-08-26] MEDS: *HR* LORazepam 2 MG/ML VIAL IVP PRN ×2 (13:32→21:29)
[2019-08-26 21:43] LABS: Acinetobacter baumannii by PCR Not Detected (Not Detect); Candida albicans by PCR Not Detected (Not Detect); Candida glabrata by PCR Not Detected (Not Detect); Candida krusei by PCR Not Detected (Not Detect); Candida parapsilosis by PCR Not Detected (Not Detect); Candida tropicalis by PCR Not Detected (Not Detect); Enterobacter cloacae Cmplx PCR Not Detected (Not Detect); Enterobacteriaceae by PCR Not Detected (Not Detect); Enterococcus by PCR Not Detected (Not Detect); Escherichia coli by PCR Not Detected (Not Detect); Klebsiella oxytoca by PCR Not Detected (Not Detect); Klebsiella pneumoniae by PCR Not Detected (Not Detect); Proteus by PCR Not Detected (Not Detect); Pseudomonas aeruginosa by PCR Not Detected (Not Detect); Serratia marcescens by PCR Not Detected (Not Detect); Staphylococcus aureus by PCR Not Detected (Not Detect); Staphylococcus by PCR DETECTED (Not Detect); Streptococcus agalactiae(B)PCR Not Detected (Not Detect); Streptococcus by PCR Not Detected (Not Detect); Streptococcus pneumoniae PCR Not Detected (Not Detect); Streptococcus pyogenes (A) PCR Not Detected (Not Detect); blaKPC Carbapenem-Resist Gene Not Detected (Not Detect); mecA Methicillin-Resist Gene DETECTED (Not Detect); vanA/B Vancomycin-Resist Genes Not Detected (Not Detect)
[2019-08-26] MEDS: *HR* OxyCODONE Immed Rel 5 MG TABLET PO PRN (23:45)
[2019-08-27] MEDS: *HR* LORazepam 2 MG/ML VIAL IVP PRN ×2 (01:59→21:39)
[2019-08-27] MEDS: *HR* OxyCODONE Immed Rel 5 MG TABLET PO PRN ×2 (05:13→21:28)
[2019-08-27] MEDS: Ondansetron 4 MG/2 ML VIAL IVP PRN (05:13)
[2019-08-27] MEDS: Piperacillin/Tazobactam 3.375 GM in 0.9 % Sodium Chloride Mini Bag 100 ML IVPB SCH ×3 (21:02→23:41)
[2019-08-27] MEDS: Ketorolac 30 MG/ML VIAL IVP PRN (23:42)
[2019-08-28] MEDS: *HR* OxyCODONE Immed Rel 5 MG TABLET PO PRN ×4 (02:13→15:01)
[2019-08-28] MEDS: *HR* LORazepam 2 MG/ML VIAL IVP PRN ×5 (02:14→20:37)
[2019-08-28 06:01] LABS: Hematocrit 39.7 % (37.5-50.1); Hemoglobin 12.4 g/dL (12.9-16.9); Immature Granulocytes % 0.7 % (0-4); Lymphocytes % 36.5 %; Mean Corpuscular HGB Conc 31.2 g/dL (31.6-35.5); Mean Corpuscular Hemoglobin 26.2 pg (28.0-33.3); Mean Corpuscular Volume 83.9 fL (83.0-100.0); Mean Platelet Volume 9.1 fL (9.4-12.4); Platelet Count 248 K/mcL (140-400); Red Blood Count 4.73 M/mcL (4.19-5.50); Red Cell Distribution Width 17.6 % (11.5-14.5); Segmented Neutrophils % 47.9 %
[2019-08-28 06:02] LABS: Basophils # 0.1 K/mcL (0.0-0.2); Eosinophils # 0.2 K/mcL (0.0-0.6); Lymphocytes # 2.2 K/mcL (0.6-4.6); Monocytes # 0.6 K/mcL (0.0-1.3); Monocytes % 9.9 %; Neutrophils # 2.9 K/mcL (1.6-8.9)
[2019-08-28 06:14] LABS: BUN/Creatinine Ratio 13 (6-26); Blood Urea Nitrogen 9 mg/dL (6-20); Calcium 8.2 mg/dL (8.6-10.3); Carbon Dioxide 25 mEq/L (23-29); Chloride 109 mEq/L (98-107); Glucose 128 mg/dL (70-105); Osmolality,Calculated 288 (280-300); Potassium 3.8 mEq/L (3.5-5.1); Sodium 139 mEq/L (136-145); eGFR For African Americans > 60 (> 60); eGFR For Non-African Americans > 60 (> 60)
[2019-08-28 06:18] LABS: BUN/Creatinine Ratio 14 (6-26); Blood Urea Nitrogen 9 mg/dL (6-20); eGFR For African Americans > 60 (> 60); eGFR For Non-African Americans > 60 (> 60)
[2019-08-28] MEDS ORDERED: Lidocaine 2% Syringe 100 MG/5 ML IV ONE (08:38)
[2019-08-28] MEDS ORDERED: *HR* Propofol 200 MG/20 ML VIAL IVP ONE (08:38)
[2019-08-28] MEDS ORDERED: *HR* Propofol 500 MG/50 ML BOTTLE IVC ONE (08:38)
[2019-08-28] MEDS: Ondansetron 4 MG/2 ML VIAL IVP PRN (10:47)
[2019-08-28] MEDS: Piperacillin/Tazobactam 3.375 GM in 0.9 % Sodium Chloride Mini Bag 100 ML IVPB SCH ×2 (10:47→17:11)
[2019-08-28] MEDS: traMADol 50 MG TABLET PO SCH ×2 (15:01→18:51)
[2019-08-28] MEDS: cloNIDine HCl 0.1 MG TABLET PO SCH ×2 (15:01→20:28)
[2019-08-28] MEDS: *HR* Promethazine 25 MG/ML VIAL IVP PRN (15:01)
[2019-08-28] MEDS: Ketorolac 30 MG/ML VIAL IVP PRN (20:37)
[2019-08-29] MEDS: Piperacillin/Tazobactam 3.375 GM in 0.9 % Sodium Chloride Mini Bag 100 ML IVPB SCH ×2 (00:29→08:13)
[2019-08-29] MEDS: traMADol 50 MG TABLET PO SCH ×4 (00:30→17:58)
[2019-08-29] MEDS: Ketorolac 30 MG/ML VIAL IVP PRN (04:42)
[2019-08-29] MEDS: cloNIDine HCl 0.1 MG TABLET PO SCH ×3 (08:13→22:22)
[2019-08-29] MEDS: *HR* LORazepam 2 MG/ML VIAL IVP PRN ×4 (08:13→22:22)
[2019-08-29] MEDS ORDERED: Ibuprofen 600 MG TABLET PO PRN (12:59)
[2019-08-29] MEDS: *HR* Promethazine 25 MG/ML VIAL IVP PRN (13:03)
[2019-08-29] MEDS: ceFAZolin 2,000 MG in 0.9 % Sodium Chloride 100 ML IVPB SCH (16:07)
[2019-08-30] MEDS: traMADol 50 MG TABLET PO SCH ×4 (00:04→18:39)
[2019-08-30] MEDS: ceFAZolin 2,000 MG in 0.9 % Sodium Chloride 100 ML IVPB SCH ×3 (00:04→15:08)
[2019-08-30] MEDS: *HR* LORazepam 2 MG/ML VIAL IVP PRN ×5 (03:52→23:33)
[2019-08-30] MEDS: cloNIDine HCl 0.1 MG TABLET PO SCH ×3 (09:35→21:21)
[2019-08-30] MEDS ORDERED: 0.9 % Sodium Chloride 500 ML IVC ONE (10:09)
[2019-08-30] MEDS ORDERED: Lidocaine Viscous Oral Soln 15 ML SOLUTION MM PRN (10:09)
[2019-08-30] MEDS: Ondansetron 4 MG/2 ML VIAL IVP PRN (16:00)
[2019-08-30] MEDS: *HR* Promethazine 25 MG/ML VIAL IVP PRN (21:34)
[2019-08-31] MEDS: ceFAZolin 2,000 MG in 0.9 % Sodium Chloride 100 ML IVPB SCH ×2 (00:24→10:41)
[2019-08-31] MEDS: traMADol 50 MG TABLET PO SCH ×4 (00:24→18:12)
[2019-08-31 03:00] LABS: Basophils # 0.1 K/mcL (0.0-0.2); Basophils % 1.1 %; Eosinophils # 0.4 K/mcL (0.0-0.6); Eosinophils % 5.7 %; Hematocrit 40.5 % (37.5-50.1); Hemoglobin 13.3 g/dL (12.9-16.9); Lymphocytes # 2.7 K/mcL (0.6-4.6); Lymphocytes % 35.5 %; Mean Corpuscular HGB Conc 32.8 g/dL (31.6-35.5); Mean Corpuscular Hemoglobin 26.3 pg (28.0-33.3); Mean Platelet Volume 8.7 fL (9.4-12.4); Monocytes # 0.7 K/mcL (0.0-1.3); Monocytes % 9.6 %; Neutrophils # 3.5 K/mcL (1.6-8.9); Platelet Count 269 K/mcL (140-400); Red Blood Count 5.06 M/mcL (4.19-5.50); Red Cell Distribution Width 18.3 % (11.5-14.5); Segmented Neutrophils % 46.1 %; White Blood Count 7.5 K/mcL (4.3-11.1)
[2019-08-31 03:20] LABS: BUN/Creatinine Ratio 20 (6-26); Blood Urea Nitrogen 15 mg/dL (6-20); Calcium 8.8 mg/dL (8.6-10.3); Carbon Dioxide 25 mEq/L (23-29); Chloride 105 mEq/L (98-107); Glucose 136 mg/dL (70-105); Osmolality,Calculated 291 (280-300); Potassium 3.9 mEq/L (3.5-5.1); Sodium 139 mEq/L (136-145); eGFR For African Americans > 60 (> 60); eGFR For Non-African Americans > 60 (> 60)
[2019-08-31] MEDS: *HR* LORazepam 2 MG/ML VIAL IVP PRN ×4 (04:15→20:08)
[2019-08-31 05:54] LABS: Acinetobacter baumannii by PCR Not Detected (Not Detect); Candida albicans by PCR Not Detected (Not Detect); Candida glabrata by PCR Not Detected (Not Detect); Candida krusei by PCR Not Detected (Not Detect); Candida parapsilosis by PCR Not Detected (Not Detect); Candida tropicalis by PCR Not Detected (Not Detect); Enterobacter cloacae Cmplx PCR Not Detected (Not Detect); Enterobacteriaceae by PCR Not Detected (Not Detect); Enterococcus by PCR Not Detected (Not Detect); Escherichia coli by PCR Not Detected (Not Detect); Klebsiella oxytoca by PCR Not Detected (Not Detect); Klebsiella pneumoniae by PCR Not Detected (Not Detect); Proteus by PCR Not Detected (Not Detect); Pseudomonas aeruginosa by PCR Not Detected (Not Detect); Serratia marcescens by PCR Not Detected (Not Detect); Staphylococcus aureus by PCR Not Detected (Not Detect); Staphylococcus by PCR DETECTED (Not Detect); Streptococcus agalactiae(B)PCR Not Detected (Not Detect); Streptococcus by PCR Not Detected (Not Detect); Streptococcus pneumoniae PCR Not Detected (Not Detect); Streptococcus pyogenes (A) PCR Not Detected (Not Detect); blaKPC Carbapenem-Resist Gene Not Detected (Not Detect); mecA Methicillin-Resist Gene Not Detected (Not Detect); vanA/B Vancomycin-Resist Genes Not Detected (Not Detect)
[2019-08-31] MEDS: Ondansetron 4 MG/2 ML VIAL IVP PRN ×2 (10:40→20:08)
[2019-08-31] MEDS: cloNIDine HCl 0.1 MG TABLET PO SCH ×3 (10:41→20:07)
[2019-09-01] MEDS: traMADol 50 MG TABLET PO SCH ×5 (00:23→23:48)
[2019-09-01] MEDS: *HR* LORazepam 2 MG/ML VIAL IVP PRN ×5 (00:25→20:50)
[2019-09-01] MEDS: cloNIDine HCl 0.1 MG TABLET PO SCH ×3 (09:23→20:50)
[2019-09-01] MEDS: hydrOXYzine pamoate 25 MG CAPSULE PO PRN ×2 (14:27→21:20)
[2019-09-02] MEDS: *HR* LORazepam 2 MG/ML VIAL IVP PRN ×5 (00:51→21:56)
[2019-09-02] MEDS: traMADol 50 MG TABLET PO SCH ×3 (06:46→17:48)
[2019-09-02] MEDS: cloNIDine HCl 0.1 MG TABLET PO SCH ×3 (09:12→20:31)
[2019-09-02] MEDS: hydrOXYzine pamoate 25 MG CAPSULE PO PRN ×2 (09:12→13:44)
[2019-09-02] MEDS ORDERED: Lidocaine -MPF 1% 5 ML AMPUL INFILT ONE (10:06)
[2019-09-03] MEDS: traMADol 50 MG TABLET PO SCH ×4 (00:30→17:52)
[2019-09-03] MEDS: *HR* LORazepam 2 MG/ML VIAL IVP PRN ×5 (02:24→21:17)
[2019-09-03 04:00] LABS: Basophils # 0.1 K/mcL (0.0-0.2); Basophils % 1.2 %; Eosinophils # 0.4 K/mcL (0.0-0.6); Eosinophils % 5.1 %; Hematocrit 41.5 % (37.5-50.1); Hemoglobin 13.2 g/dL (12.9-16.9); Immature Granulocytes % 1.6 % (0-4); Lymphocytes # 2.3 K/mcL (0.6-4.6); Lymphocytes % 28.2 %; Mean Corpuscular HGB Conc 31.8 g/dL (31.6-35.5); Mean Corpuscular Hemoglobin 26.7 pg (28.0-33.3); Mean Corpuscular Volume 83.8 fL (83.0-100.0); Mean Platelet Volume 9.2 fL (9.4-12.4); Monocytes # 0.9 K/mcL (0.0-1.3); Monocytes % 10.5 %; Neutrophils # 4.4 K/mcL (1.6-8.9); Platelet Count 239 K/mcL (140-400); Red Blood Count 4.95 M/mcL (4.19-5.50); Segmented Neutrophils % 53.4 %; White Blood Count 8.3 K/mcL (4.3-11.1)
[2019-09-03 04:22] LABS: BUN/Creatinine Ratio 21 (6-26); Blood Urea Nitrogen 15 mg/dL (6-20); Calcium 8.8 mg/dL (8.6-10.3); Carbon Dioxide 25 mEq/L (23-29); Chloride 106 mEq/L (98-107); Glucose 122 mg/dL (70-105); Osmolality,Calculated 286 (280-300); Potassium 3.9 mEq/L (3.5-5.1); Sodium 137 mEq/L (136-145); eGFR For African Americans > 60 (> 60); eGFR For Non-African Americans > 60 (> 60)
[2019-09-03] MEDS: hydrOXYzine pamoate 25 MG CAPSULE PO PRN (09:03)
[2019-09-03] MEDS: cloNIDine HCl 0.1 MG TABLET PO SCH ×3 (09:03→21:07)
[2019-09-03] MEDS: *HR* Heparin 5,000 UNIT/ML VIAL SQ SCH ×2 (13:46→21:07)
[2019-09-03] MEDS: Ondansetron 4 MG/2 ML VIAL IVP PRN (21:31)
[2019-09-04] MEDS: traMADol 50 MG TABLET PO SCH ×4 (00:42→16:59)
[2019-09-04] MEDS: *HR* Heparin 5,000 UNIT/ML VIAL SQ SCH ×3 (04:29→19:50)
[2019-09-04] MEDS: *HR* LORazepam 2 MG/ML VIAL IVP PRN ×5 (04:30→21:05)
[2019-09-04] MEDS: cloNIDine HCl 0.1 MG TABLET PO SCH ×3 (08:33→20:37)
[2019-09-04] MEDS: hydrOXYzine pamoate 25 MG CAPSULE PO PRN ×2 (08:33→17:03)
[2019-09-05] MEDS: *HR* LORazepam 2 MG/ML VIAL IVP PRN ×2 (01:19→06:03)
[2019-09-05] MEDS: traMADol 50 MG TABLET PO SCH ×4 (01:19→18:53)
[2019-09-05] MEDS: *HR* Heparin 5,000 UNIT/ML VIAL SQ SCH ×3 (04:42→21:04)
[2019-09-05 05:19] LABS: BUN/Creatinine Ratio 22 (6-26); Blood Urea Nitrogen 15 mg/dL (6-20); Calcium 9.2 mg/dL (8.6-10.3); Carbon Dioxide 25 mEq/L (23-29); Chloride 105 mEq/L (98-107); Glucose 97 mg/dL (70-105); Magnesium 1.8 mg/dL (1.6-2.6); Osmolality,Calculated 289 (280-300); Phosphorous 4.9 mg/dL (2.7-4.5); Potassium 4.2 mEq/L (3.5-5.1); Sodium 139 mEq/L (136-145); eGFR For African Americans > 60 (> 60); eGFR For Non-African Americans > 60 (> 60)
[2019-09-05] MEDS: cloNIDine HCl 0.1 MG TABLET PO SCH ×2 (08:16→21:05)
[2019-09-06] MEDS: traMADol 50 MG TABLET PO SCH ×4 (00:24→18:34)
[2019-09-06] MEDS: *HR* Heparin 5,000 UNIT/ML VIAL SQ SCH ×3 (05:04→20:40)
[2019-09-06] MEDS: cloNIDine HCl 0.1 MG TABLET PO SCH ×2 (08:54→20:39)
[2019-09-07] MEDS: traMADol 50 MG TABLET PO SCH ×4 (00:23→18:36)
[2019-09-07 02:56] LABS: BUN/Creatinine Ratio 19 (6-26); Blood Urea Nitrogen 15 mg/dL (6-20); Carbon Dioxide 24 mEq/L (23-29); Chloride 105 mEq/L (98-107); Glucose 144 mg/dL (70-105); Magnesium 1.7 mg/dL (1.6-2.6); Osmolality,Calculated 287 (280-300); Phosphorous 3.5 mg/dL (2.7-4.5); Potassium 3.6 mEq/L (3.5-5.1); Sodium 137 mEq/L (136-145); eGFR For African Americans > 60 (> 60); eGFR For Non-African Americans > 60 (> 60)
[2019-09-07] MEDS: *HR* Heparin 5,000 UNIT/ML VIAL SQ SCH ×3 (06:08→20:24)
[2019-09-07] MEDS: cloNIDine HCl 0.1 MG TABLET PO SCH ×3 (07:37→20:21)
[2019-09-08] MEDS: *HR* Promethazine 25 MG/ML VIAL IVP PRN (04:58)
[2019-09-08] MEDS: *HR* Heparin 5,000 UNIT/ML VIAL SQ SCH ×3 (05:39→21:43)
[2019-09-08] MEDS: traMADol 50 MG TABLET PO SCH ×4 (05:39→18:04)
[2019-09-08] MEDS: cloNIDine HCl 0.1 MG TABLET PO SCH ×2 (08:58→20:38)
[2019-09-09] MEDS: traMADol 50 MG TABLET PO SCH ×3 (02:58→13:46)
[2019-09-09] MEDS: *HR* Heparin 5,000 UNIT/ML VIAL SQ SCH ×2 (05:28→13:50)
[2019-09-09] MEDS: cloNIDine HCl 0.1 MG TABLET PO SCH (07:43)
[2019-09-09 14:18] VITALS: BP 117/69
[2019-09-09] MEDS ORDERED: Aminoglycoside Consult 1 EACH MC ONE (16:55)
== END 2019-09-09 16:56 | DRG 364 ==
LOC: EMEROOARM 16:48 → 3ANU 16:48 → SUATTDRO 21:34 → 3ANU 22:10 → SUATTDRO 08-28 12:10
PROVIDERS: ADMIT Internal Medicine; ATTEND Internal Medicine

== ENCOUNTER 2019-09-25 11:23 | Observation (INO) ==
[2019-09-25 12:11] LABS: Basophils % 0.4 %; Eosinophils # 0.1 K/mcL (0.0-0.6); Eosinophils % 1.5 %; Hematocrit 39.5 % (37.5-50.1); Hemoglobin 12.9 g/dL (12.9-16.9); Immature Granulocytes % 0.5 % (0-4); Lymphocytes # 2.4 K/mcL (0.6-4.6); Lymphocytes % 31.6 %; Mean Corpuscular HGB Conc 32.7 g/dL (31.6-35.5); Mean Corpuscular Hemoglobin 27.9 pg (28.0-33.3); Mean Corpuscular Volume 85.3 fL (83.0-100.0); Mean Platelet Volume 8.9 fL (9.4-12.4); Monocytes # 0.9 K/mcL (0.0-1.3); Monocytes % 11.7 %; Neutrophils # 4.1 K/mcL (1.6-8.9); Platelet Count 163 K/mcL (140-400); Red Blood Count 4.63 M/mcL (4.19-5.50); Red Cell Distribution Width 16.3 % (11.5-14.5); Segmented Neutrophils % 54.3 %; White Blood Count 7.5 K/mcL (4.3-11.1)
[2019-09-25 12:33] LABS: Acetaminophen < 10 mcg/mL (10-20); Alanine Aminotransferase 199 Units/L (7-52); Albumin/Globulin Ratio 1.6 (1.1-2.2); Alkaline Phosphatase 68 Units/L (34-104); Aspartate Amino Transferase 120 Units/L (13-39); BUN/Creatinine Ratio 24 (6-26); Bilirubin,Direct 0.3 mg/dL (0.0-0.2); Bilirubin,Total 1.3 mg/dL (0.3-1.0); Blood Urea Nitrogen 24 mg/dL (6-20); Calcium 8.6 mg/dL (8.6-10.3); Carbon Dioxide 29 mEq/L (23-29); Chloride 99 mEq/L (98-107); Ethanol < 10 mg/dL (Less than 10); Globulin 2.5 g/dL (2.4-3.5); Glucose 135 mg/dL (70-105); Osmolality,Calculated 290 (280-300); Potassium 3.5 mEq/L (3.5-5.1); Salicylate < 2.5 mg/dL (15.0-30.0); Sodium 137 mEq/L (136-145); Total Protein 6.5 g/dL (6.4-8.9); eGFR For African Americans > 60 (> 60); eGFR For Non-African Americans > 60 (> 60)
[2019-09-25 14:20] LABS: Bilirubin,Urine Negative (Negative); Blood,Urine Negative (Negative); Clarity,Urine Clear (Clear); Color,Urine Yellow (Yellow); Glucose,Urine (UA) Normal (Normal); Ketones,Urine Negative (Negative); Leukocyte Esterase,Urine Negative (Negative); Nitrite,Urine Negative (Negative); PH,Urine 5.5 pH Units (5.0-8.0); Protein,Urine Negative (Neg-Trace); Specific Gravity,Urine 1.029 (1.010-1.025); Urobilinogen,Urine Normal (Normal)
[2019-09-25 14:33] LABS: Amphetamine Screen,Urine Positive ng/mL (Cutoff=1000); Barbiturate Screen,Urine Negative ng/mL (Cutoff=200); Benzodiazepines Screen,Urine Negative ng/mL (Cutoff=200); Cannabinoid Screen,Urine Negative ng/mL (Cutoff = 50); Cocaine Screen,Urine Negative ng/mL (Cutoff= 300); Opiate Screen,Urine Negative ng/mL (Cutoff=300); Phencyclidine Screen,Urine Negative ng/mL (Cutoff=25)
[2019-09-25] MEDS ORDERED: 0.9 % Sodium Chloride 1,000 ML IVC ONE ×2 (15:10→15:15)
[2019-09-25 17:30] LABS: Hepatitis B Surface Antigen Nonreactive (Nonreactive)
[2019-09-25] MEDS ORDERED: Ondansetron ODT 4 MG TAB.RAPDIS SL PRN (17:43)
[2019-09-25] MEDS ORDERED: Naloxone 0.4 MG/ML INJ IVP PRN (17:43)
[2019-09-25 17:58] LABS: Hepatitis B Core IgM Nonreactive (Nonreactive)
[2019-09-25 18:01] LABS: Hepatitis A Antibody IgM Nonreactive (Nonreactive)
[2019-09-25 20:10] LABS: Hepatitis C Virus Antibody Reactive (Nonreactive)
[2019-09-25] MEDS: 0.9 % Sodium Chloride 1,000 ML IVC SCH (20:45)
[2019-09-26] MEDS: 0.9 % Sodium Chloride 1,000 ML IVC SCH ×2 (00:51→12:58)
[2019-09-26] MEDS: *HR* Enoxaparin 40 MG/0.4 ML SYRINGE SQ SCH (06:14)
[2019-09-26 07:12] LABS: Hematocrit 39.3 % (37.5-50.1); Hemoglobin 12.8 g/dL (12.9-16.9); Mean Corpuscular HGB Conc 32.6 g/dL (31.6-35.5); Mean Corpuscular Hemoglobin 27.7 pg (28.0-33.3); Mean Corpuscular Volume 85.1 fL (83.0-100.0); Mean Platelet Volume 9.4 fL (9.4-12.4); Platelet Count 148 K/mcL (140-400); Red Blood Count 4.62 M/mcL (4.19-5.50); Red Cell Distribution Width 16.5 % (11.5-14.5); White Blood Count 5.9 K/mcL (4.3-11.1)
[2019-09-26 07:32] LABS: Alanine Aminotransferase 183 Units/L (7-52); Albumin 3.2 g/dL (3.5-5.7); Albumin/Globulin Ratio 1.4 (1.1-2.2); Alkaline Phosphatase 54 Units/L (34-104); Aspartate Amino Transferase 118 Units/L (13-39); BUN/Creatinine Ratio 15 (6-26); Bilirubin,Total 1.7 mg/dL (0.3-1.0); Blood Urea Nitrogen 11 mg/dL (6-20); Carbon Dioxide 23 mEq/L (23-29); Chloride 110 mEq/L (98-107); Globulin 2.3 g/dL (2.4-3.5); Glucose 91 mg/dL (70-105); Osmolality,Calculated 293 (280-300); Potassium 3.7 mEq/L (3.5-5.1); Sodium 142 mEq/L (136-145); Total Protein 5.5 g/dL (6.4-8.9); eGFR For African Americans > 60 (> 60); eGFR For Non-African Americans > 60 (> 60)
[2019-09-26 17:15] LABS: INR 1.1; Prothrombin Time 12.7 Seconds (9.4-12.1)
[2019-09-26] MEDS ORDERED: Ibuprofen 600 MG TABLET PO ONE (20:19)
[2019-09-27] MEDS: 0.9 % Sodium Chloride 1,000 ML IVC SCH ×2 (01:56→15:27)
[2019-09-27] MEDS: *HR* Enoxaparin 40 MG/0.4 ML SYRINGE SQ SCH (06:23)
[2019-09-27 06:47] LABS: Alanine Aminotransferase 164 Units/L (7-52); Albumin 3.1 g/dL (3.5-5.7); Albumin/Globulin Ratio 1.3 (1.1-2.2); Alkaline Phosphatase 53 Units/L (34-104); Aspartate Amino Transferase 92 Units/L (13-39); BUN/Creatinine Ratio 15 (6-26); Bilirubin,Total 0.8 mg/dL (0.3-1.0); Blood Urea Nitrogen 9 mg/dL (6-20); Calcium 8.1 mg/dL (8.6-10.3); Carbon Dioxide 23 mEq/L (23-29); Chloride 112 mEq/L (98-107); Creatine Kinase 1031 Units/L (30-223); Globulin 2.3 g/dL (2.4-3.5); Glucose 106 mg/dL (70-105); Osmolality,Calculated 293 (280-300); Potassium 3.8 mEq/L (3.5-5.1); Sodium 142 mEq/L (136-145); Total Protein 5.4 g/dL (6.4-8.9); eGFR For African Americans > 60 (> 60); eGFR For Non-African Americans > 60 (> 60)
[2019-09-28] MEDS: 0.9 % Sodium Chloride 1,000 ML IVC SCH (04:45)
[2019-09-28 05:33] LABS: Alanine Aminotransferase 152 Units/L (7-52); Albumin 3.2 g/dL (3.5-5.7); Albumin/Globulin Ratio 1.3 (1.1-2.2); Alkaline Phosphatase 53 Units/L (34-104); Aspartate Amino Transferase 78 Units/L (13-39); BUN/Creatinine Ratio 8 (6-26); Bilirubin,Total 0.7 mg/dL (0.3-1.0); Blood Urea Nitrogen 5 mg/dL (6-20); Calcium 8.5 mg/dL (8.6-10.3); Carbon Dioxide 22 mEq/L (23-29); Chloride 114 mEq/L (98-107); Globulin 2.4 g/dL (2.4-3.5); Glucose 110 mg/dL (70-105); Osmolality,Calculated 296 (280-300); Potassium 3.4 mEq/L (3.5-5.1); Sodium 144 mEq/L (136-145); Total Protein 5.6 g/dL (6.4-8.9); eGFR For African Americans > 60 (> 60); eGFR For Non-African Americans > 60 (> 60)
[2019-09-28] MEDS: *HR* Enoxaparin 40 MG/0.4 ML SYRINGE SQ SCH (08:43)
[2019-09-28 09:09] LABS: AFP Tumor Marker Non-Pregnant 3 ng/mL (0-9)
[2019-09-28 10:56] VITALS: BP 133/81
[2019-09-30 14:35] LABS: ANA IgG by ELISA NONE DETECTED (None Detected)
[2019-09-30 14:36] LABS: F-Actin (sm muscle) Ab IgG 12 Units (0-19)
[2019-09-30 14:50] LABS: HCV Quant Interpretation DETECTED (Not Detected); HCV Quant Log 5.78 log IU/mL
[2019-10-02 08:08] LABS: HCV Genotype by Sequencing 1A OR 1B
== END 2019-09-28 15:42 | disposition home or self-care (01) ==
LOC: EMEROOARM 11:23 → 3BNU 11:23 → SUATTDRO 17:20 → 3BNU 19:50
PROVIDERS: ADMIT Family Medicine; ATTEND Family Medicine

== ENCOUNTER 2020-01-07 11:37 | Inpatient (IN) ==
[2020-01-07] MEDS ORDERED: Ondansetron ODT 4 MG TAB.RAPDIS SL ONE (11:40)
[2020-01-07 12:28] LABS: Basophils % 0.2 %; Hematocrit 43.5 % (37.5-50.1); Hemoglobin 14.3 g/dL (12.9-16.9); Immature Granulocytes % 0.6 % (0-4); Lymphocytes # 1.2 K/mcL (0.6-4.6); Lymphocytes % 13.7 %; Mean Corpuscular HGB Conc 32.9 g/dL (31.6-35.5); Mean Corpuscular Hemoglobin 28.4 pg (28.0-33.3); Mean Corpuscular Volume 86.3 fL (83.0-100.0); Mean Platelet Volume 9.3 fL (9.4-12.4); Monocytes # 0.7 K/mcL (0.0-1.3); Monocytes % 7.7 %; Platelet Count 190 K/mcL (140-400); Red Blood Count 5.04 M/mcL (4.19-5.50); Red Cell Distribution Width 13.8 % (11.5-14.5); Segmented Neutrophils % 77.8 %; White Blood Count 9.1 K/mcL (4.3-11.1)
[2020-01-07 12:49] LABS: BUN/Creatinine Ratio 20 (6-26); Blood Urea Nitrogen 20 mg/dL (6-20); Calcium 9.2 mg/dL (8.6-10.3); Carbon Dioxide 24 mEq/L (23-29); Chloride 109 mEq/L (98-107); Creatine Kinase 979 Units/L (30-223); Glucose 105 mg/dL (70-105); Osmolality,Calculated 287 (280-300); Potassium 4.3 mEq/L (3.5-5.1); Sodium 137 mEq/L (136-145); eGFR For African Americans > 60 (> 60); eGFR For Non-African Americans > 60 (> 60)
[2020-01-07 12:50] LABS: Troponin I < 0.03 ng/mL (< 0.04)
[2020-01-07] MEDS ORDERED: 0.9 % Sodium Chloride 1,000 ML IVC ONE (12:52)
[2020-01-07] MEDS ORDERED: Ondansetron 4 MG/2 ML VIAL IVP ONE (13:36)
[2020-01-07] MEDS ORDERED: 0.9 % Sodium Chloride 500 ML IVC ONE (14:06)
[2020-01-07] MEDS ORDERED: Ondansetron 4 MG/2 ML VIAL IVP PRN (16:36)
[2020-01-07] MEDS ORDERED: Naloxone 0.4 MG/ML INJ IVP PRN (16:36)
[2020-01-07] MEDS ORDERED: hydrOXYzine pamoate 25 MG CAPSULE PO PRN (16:39)
[2020-01-07] MEDS: Ringers Solution, Lactated 1,000 ML IVC SCH ×2 (17:00→23:24)
[2020-01-07] MEDS: *HR* Heparin 5,000 UNIT/ML VIAL SQ SCH (19:35)
[2020-01-07] MEDS: Acetaminophen 325 MG TABLET PO PRN (21:11)
[2020-01-08 01:24] LABS: Alanine Aminotransferase 141 Units/L (7-52); Albumin 3.8 g/dL (3.5-5.7); Albumin/Globulin Ratio 1.6 (1.1-2.2); Alkaline Phosphatase 45 Units/L (34-104); Aspartate Amino Transferase 72 Units/L (13-39); BUN/Creatinine Ratio 18 (6-26); Bilirubin,Total 1.4 mg/dL (0.3-1.0); Blood Urea Nitrogen 18 mg/dL (6-20); Calcium 8.5 mg/dL (8.6-10.3); Carbon Dioxide 26 mEq/L (23-29); Chloride 107 mEq/L (98-107); Globulin 2.4 g/dL (2.4-3.5); Glucose 100 mg/dL (70-105); Magnesium 1.8 mg/dL (1.6-2.6); Osmolality,Calculated 288 (280-300); Potassium 3.6 mEq/L (3.5-5.1); Sodium 138 mEq/L (136-145); Total Protein 6.2 g/dL (6.4-8.9); eGFR For African Americans > 60 (> 60); eGFR For Non-African Americans > 60 (> 60)
[2020-01-08] MEDS: *HR* Heparin 5,000 UNIT/ML VIAL SQ SCH ×2 (06:06→15:41)
[2020-01-08 08:08] LABS: INR 1.2; Prothrombin Time 13.4 Seconds (9.4-12.1)
[2020-01-08 08:49] LABS: Hepatitis B Surface Antigen Nonreactive (Nonreactive)
[2020-01-08] MEDS: Ringers Solution, Lactated 1,000 ML IVC SCH (08:56)
[2020-01-08] MEDS: Acetaminophen 325 MG TABLET PO PRN (09:04)
[2020-01-08 09:18] LABS: Hepatitis B Core IgM Nonreactive (Nonreactive)
[2020-01-08 09:19] LABS: Hepatitis A Antibody IgM Nonreactive (Nonreactive)
[2020-01-08 09:19] LABS: Bilirubin,Urine Negative (Negative); Blood,Urine Negative (Negative); Clarity,Urine Clear (Clear); Color,Urine Yellow (Yellow); Glucose,Urine (UA) Normal (Normal); Ketones,Urine Negative (Negative); Leukocyte Esterase,Urine Negative (Negative); Nitrite,Urine Negative (Negative); Protein,Urine Negative (Neg-Trace); Urobilinogen,Urine Normal (Normal)
[2020-01-08 10:36] LABS: Amphetamine Screen,Urine Positive ng/mL (Cutoff=1000); Barbiturate Screen,Urine Negative ng/mL (Cutoff=200); Benzodiazepines Screen,Urine Negative ng/mL (Cutoff=200); Cannabinoid Screen,Urine Negative ng/mL (Cutoff = 50); Cocaine Screen,Urine Negative ng/mL (Cutoff= 300); Opiate Screen,Urine Negative ng/mL (Cutoff=300); Phencyclidine Screen,Urine Negative ng/mL (Cutoff=25)
[2020-01-08] MEDS ORDERED: Ringers Solution, Lactated 1,000 ML IVC ONE ×2 (10:49)
[2020-01-08 12:56] LABS: Hepatitis C Virus Antibody Reactive (Nonreactive)
[2020-01-09 04:36] LABS: Alanine Aminotransferase 121 Units/L (7-52); Albumin 3.6 g/dL (3.5-5.7); Albumin/Globulin Ratio 1.6 (1.1-2.2); Alkaline Phosphatase 43 Units/L (34-104); Aspartate Amino Transferase 68 Units/L (13-39); BUN/Creatinine Ratio 19 (6-26); Bilirubin,Total 0.8 mg/dL (0.3-1.0); Blood Urea Nitrogen 18 mg/dL (6-20); Calcium 8.5 mg/dL (8.6-10.3); Carbon Dioxide 28 mEq/L (23-29); Chloride 108 mEq/L (98-107); Globulin 2.3 g/dL (2.4-3.5); Glucose 109 mg/dL (70-105); Osmolality,Calculated 292 (280-300); Sodium 140 mEq/L (136-145); Total Protein 5.9 g/dL (6.4-8.9); eGFR For African Americans > 60 (> 60); eGFR For Non-African Americans > 60 (> 60)
[2020-01-09] MEDS: *HR* Heparin 5,000 UNIT/ML VIAL SQ SCH (06:08)
[2020-01-09] MEDS: Pantoprazole 40 MG VIAL IVP SCH ×2 (09:42→21:41)
[2020-01-09] MEDS: Ringers Solution, Lactated 1,000 ML IVC SCH ×2 (09:42→16:02)
[2020-01-09 10:14] LABS: Hematocrit 42.5 % (37.5-50.1); Hemoglobin 13.8 g/dL (12.9-16.9); Mean Corpuscular HGB Conc 32.5 g/dL (31.6-35.5); Mean Corpuscular Volume 86.4 fL (83.0-100.0); Mean Platelet Volume 9.2 fL (9.4-12.4); Platelet Count 173 K/mcL (140-400); Red Blood Count 4.92 M/mcL (4.19-5.50); Red Cell Distribution Width 13.6 % (11.5-14.5); White Blood Count 5.7 K/mcL (4.3-11.1)
[2020-01-10 00:46] LABS: Basophils # 0.1 K/mcL (0.0-0.2); Basophils % 0.8 %; Eosinophils # 0.2 K/mcL (0.0-0.6); Eosinophils % 3.3 %; Hematocrit 41.6 % (37.5-50.1); Hemoglobin 13.9 g/dL (12.9-16.9); Immature Granulocytes % 0.6 % (0-4); Lymphocytes # 3.2 K/mcL (0.6-4.6); Lymphocytes % 47.4 %; Mean Corpuscular HGB Conc 33.4 g/dL (31.6-35.5); Mean Corpuscular Hemoglobin 28.8 pg (28.0-33.3); Mean Corpuscular Volume 86.1 fL (83.0-100.0); Mean Platelet Volume 9.5 fL (9.4-12.4); Monocytes # 0.6 K/mcL (0.0-1.3); Monocytes % 9.3 %; Neutrophils # 2.6 K/mcL (1.6-8.9); Platelet Count 176 K/mcL (140-400); Red Blood Count 4.83 M/mcL (4.19-5.50); Red Cell Distribution Width 13.5 % (11.5-14.5); Segmented Neutrophils % 38.6 %; White Blood Count 6.7 K/mcL (4.3-11.1)
[2020-01-10 01:02] LABS: BUN/Creatinine Ratio 17 (6-26); Blood Urea Nitrogen 16 mg/dL (6-20); Calcium 8.5 mg/dL (8.6-10.3); Carbon Dioxide 26 mEq/L (23-29); Chloride 111 mEq/L (98-107); Glucose 162 mg/dL (70-105); Osmolality,Calculated 295 (280-300); Potassium 3.7 mEq/L (3.5-5.1); Sodium 140 mEq/L (136-145); eGFR For African Americans > 60 (> 60); eGFR For Non-African Americans > 60 (> 60)
[2020-01-10] MEDS: Ringers Solution, Lactated 1,000 ML IVC SCH ×3 (05:05→16:57)
[2020-01-10] MEDS: Pantoprazole 40 MG VIAL IVP SCH ×3 (09:00→20:57)
[2020-01-10] MEDS ORDERED: *HR* Midazolam HCl 2 MG/2 ML VIAL ONE (11:12)
[2020-01-10] MEDS ORDERED: *HR* Propofol 200 MG/20 ML VIAL IVP ONE (11:12)
[2020-01-10] MEDS ORDERED: Lidocaine -MPF 2% 2 ML VIAL ONE (11:12)
[2020-01-11 05:32] LABS: Estimated Average Glucose 100 mg/dl
[2020-01-11 08:48] VITALS: BP 119/76
== END 2020-01-11 12:13 | disposition home or self-care (01) ==
LOC: EMEROOARM 11:37 → 3BNU 11:37 → SUATTDRO 14:44 → 3BNU 16:33 → SUATTDRO 01-08 15:36
PROVIDERS: ADMIT Internal Medicine; ATTEND Internal Medicine

== ENCOUNTER 2020-11-16 14:30 | Inpatient (IN) ==
[2020-11-16] MEDS ORDERED: 0.9 % Sodium Chloride 1,000 ML IVC ONE (15:15)
[2020-11-16] MEDS ORDERED: Isovue-370 500 ML BOTTLE IVP ONE (15:16)
[2020-11-16] MEDS ORDERED: *HR* FentaNYL (PF) 100 MCG/2 ML VIAL IVP ONE (15:19)
[2020-11-16] MEDS ORDERED: Piperacillin/Tazobactam 3.375 GM in 0.9 % Sodium Chloride Mini Bag 100 ML IVPB ONE (15:30)
[2020-11-16] MEDS ORDERED: Vancomycin 1,500 MG/265 ML IV.SOLN IVPB ONE (15:30)
[2020-11-16 16:00] LABS: Basophils # 0.1 K/mcL (0.0-0.2); Basophils % 0.9 %; Eosinophils # 0.4 K/mcL (0.0-0.6); Eosinophils % 5.1 %; Hematocrit 42.5 % (37.5-50.1); Hemoglobin 13.4 g/dL (12.9-16.9); Immature Granulocytes % 0.7 % (0-4); Lymphocytes # 2.2 K/mcL (0.6-4.6); Lymphocytes % 31.1 %; Mean Corpuscular HGB Conc 31.5 g/dL (31.6-35.5); Mean Corpuscular Hemoglobin 26.7 pg (28.0-33.3); Mean Corpuscular Volume 84.7 fL (83.0-100.0); Mean Platelet Volume 9.8 fL (9.4-12.4); Monocytes % 14.8 %; Neutrophils # 3.4 K/mcL (1.6-8.9); Platelet Count 212 K/mcL (140-400); Red Blood Count 5.02 M/mcL (4.19-5.50); Red Cell Distribution Width 14.2 % (11.5-14.5); Segmented Neutrophils % 47.4 %; White Blood Count 7.1 K/mcL (4.3-11.1)
[2020-11-16 16:13] LABS: Albumin 3.8 g/dL (3.5-5.7); Albumin/Globulin Ratio 1.3 (1.1-2.2); Bilirubin,Direct 0.1 mg/dL (0.0-0.2); Bilirubin,Indirect 0.2 mg/dL (0.0-1.0); Bilirubin,Total 0.3 mg/dL (0.3-1.0); Total Protein 6.8 g/dL (6.4-8.9)
[2020-11-16 16:14] LABS: BUN/Creatinine Ratio 21 (6-26); Blood Urea Nitrogen 14 mg/dL (6-20); Calcium 9.2 mg/dL (8.6-10.3); Carbon Dioxide 28 mEq/L (23-29); Chloride 107 mEq/L (98-107); Glucose 81 mg/dL (70-105); Osmolality,Calculated 288 (280-300); Potassium 3.9 mEq/L (3.5-5.1); Sodium 139 mEq/L (136-145); Troponin I < 0.03 ng/mL (< 0.04); eGFR For African Americans > 60 (> 60); eGFR For Non-African Americans > 60 (> 60)
[2020-11-16] MEDS ORDERED: Ketorolac 15 MG/ML VIAL IVP ONE ×2 (18:39→20:51)
[2020-11-16] MEDS ORDERED: Perflutren Lipid Microsphere 1.3 ML in 0.9 % Sodium Chloride 8.7 ML IVP PRN (20:53)
[2020-11-16] MEDS ORDERED: Naloxone 0.4 MG/ML INJ IVP PRN (20:57)
[2020-11-16] MEDS ORDERED: 0.9 % Sodium Chloride 1,000 ML IVC SCH (21:00)
[2020-11-16] MEDS: Ondansetron 4 MG/2 ML VIAL IVP PRN (21:36)
[2020-11-16] MEDS: *HR* Heparin 5,000 UNIT/ML VIAL SQ SCH (22:20)
[2020-11-17] MEDS: Piperacillin/Tazobactam 3.375 GM in 0.9 % Sodium Chloride Mini Bag 100 ML IVPB SCH ×3 (01:18→16:36)
[2020-11-17] MEDS: *HR* Heparin 5,000 UNIT/ML VIAL SQ SCH ×3 (05:05→21:20)
[2020-11-17 05:59] LABS: Hematocrit 37.3 % (37.5-50.1); Mean Corpuscular HGB Conc 32.2 g/dL (31.6-35.5); Mean Corpuscular Hemoglobin 27.1 pg (28.0-33.3); Mean Corpuscular Volume 84.2 fL (83.0-100.0); Mean Platelet Volume 9.4 fL (9.4-12.4); Platelet Count 178 K/mcL (140-400); Red Blood Count 4.43 M/mcL (4.19-5.50); Red Cell Distribution Width 14.1 % (11.5-14.5); White Blood Count 5.7 K/mcL (4.3-11.1)
[2020-11-17 06:21] LABS: Albumin/Globulin Ratio 1.3 (1.1-2.2); Bilirubin,Indirect 0.3 mg/dL (0.0-1.0); Bilirubin,Total 0.3 mg/dL (0.3-1.0); Globulin 2.4 g/dL (2.4-3.5); Total Protein 5.4 g/dL (6.4-8.9)
[2020-11-17 06:24] LABS: BUN/Creatinine Ratio 18 (6-26); Blood Urea Nitrogen 12 mg/dL (6-20); Calcium 8.4 mg/dL (8.6-10.3); Carbon Dioxide 23 mEq/L (23-29); Chloride 110 mEq/L (98-107); Glucose 118 mg/dL (70-105); Magnesium 1.6 mg/dL (1.6-2.6); Osmolality,Calculated 291 (280-300); Potassium 3.6 mEq/L (3.5-5.1); Sodium 140 mEq/L (136-145); eGFR For African Americans > 60 (> 60); eGFR For Non-African Americans > 60 (> 60)
[2020-11-17 06:36] LABS: Troponin I < 0.03 ng/mL (< 0.04)
[2020-11-17 07:07] LABS: Hepatitis B Surface Antigen Nonreactive (Nonreactive)
[2020-11-17 07:37] LABS: Hepatitis B Core IgM Nonreactive (Nonreactive)
[2020-11-17 07:38] LABS: Hepatitis A Antibody IgM Nonreactive (Nonreactive)
[2020-11-17] MEDS: Aspirin Enteric Coated 81 MG Tablet PO SCH (09:00)
[2020-11-17] MEDS ORDERED: Morphine Sulfate 2 MG/ML SYRINGE IVP PRN (12:38)
[2020-11-17] MEDS: Vancomycin 1,500 MG/265 ML IV.SOLN IVPB SCH (13:13)
[2020-11-17] MEDS: Ondansetron 4 MG/2 ML VIAL IVP PRN (13:23)
[2020-11-17 14:39] LABS: Hepatitis C Virus Antibody Reactive (Nonreactive)
[2020-11-17] MEDS ORDERED: Acetaminophen IV 1,000 MG/100 ML BAG IVPB ONE (14:54)
[2020-11-17] MEDS: Morphine Sulfate 2 MG/ML SYRINGE IVP PRN ×2 (17:07→21:17)
[2020-11-17] MEDS ORDERED: Vancomycin 1,250 MG/262.5 ML IV.SOLN IVPB SCH (18:00)
[2020-11-17] MEDS: Gabapentin 400 MG CAPSULE PO SCH (21:24)
[2020-11-18] MEDS: Vancomycin 1,500 MG/265 ML IV.SOLN IVPB SCH ×2 (00:29→12:42)
[2020-11-18] MEDS: Piperacillin/Tazobactam 3.375 GM in 0.9 % Sodium Chloride Mini Bag 100 ML IVPB SCH ×4 (00:29→23:35)
[2020-11-18] MEDS: Ondansetron 4 MG/2 ML VIAL IVP PRN ×2 (00:36→12:43)
[2020-11-18] MEDS: Morphine Sulfate 2 MG/ML SYRINGE IVP PRN ×6 (01:42→22:10)
[2020-11-18] MEDS: *HR* Heparin 5,000 UNIT/ML VIAL SQ SCH ×3 (05:16→22:09)
[2020-11-18 05:40] LABS: Basophils # 0.1 K/mcL (0.0-0.2); Basophils % 0.9 %; Eosinophils # 0.4 K/mcL (0.0-0.6); Eosinophils % 7.1 %; Hematocrit 37.6 % (37.5-50.1); Lymphocytes # 2.2 K/mcL (0.6-4.6); Lymphocytes % 39.6 %; Mean Corpuscular HGB Conc 31.9 g/dL (31.6-35.5); Mean Corpuscular Hemoglobin 26.7 pg (28.0-33.3); Mean Corpuscular Volume 83.7 fL (83.0-100.0); Mean Platelet Volume 9.7 fL (9.4-12.4); Monocytes # 0.7 K/mcL (0.0-1.3); Monocytes % 12.5 %; Neutrophils # 2.1 K/mcL (1.6-8.9); Platelet Count 182 K/mcL (140-400); Red Blood Count 4.49 M/mcL (4.19-5.50); Red Cell Distribution Width 13.8 % (11.5-14.5); Segmented Neutrophils % 37.9 %; White Blood Count 5.5 K/mcL (4.3-11.1)
[2020-11-18 05:59] LABS: BUN/Creatinine Ratio 11 (6-26); Blood Urea Nitrogen 9 mg/dL (6-20); Calcium 8.3 mg/dL (8.6-10.3); Carbon Dioxide 27 mEq/L (23-29); Chloride 110 mEq/L (98-107); Glucose 112 mg/dL (70-105); Magnesium 1.6 mg/dL (1.6-2.6); Osmolality,Calculated 295 (280-300); Potassium 3.7 mEq/L (3.5-5.1); Sodium 143 mEq/L (136-145); eGFR For African Americans > 60 (> 60); eGFR For Non-African Americans > 60 (> 60)
[2020-11-18] MEDS: Aspirin Enteric Coated 81 MG Tablet PO SCH (08:54)
[2020-11-18] MEDS: Gabapentin 400 MG CAPSULE PO SCH ×3 (08:54→19:53)
[2020-11-18] MEDS: Vancomycin 2,000 MG/520 ML IV.SOLN IVPB SCH (13:49)
[2020-11-18] MEDS ORDERED: Acetaminophen IV 1,000 MG/100 ML BAG IVPB ONE (17:13)
[2020-11-19] MEDS: Vancomycin 2,000 MG/520 ML IV.SOLN IVPB SCH ×2 (02:03→12:43)
[2020-11-19 03:13] LABS: Basophils # 0.1 K/mcL (0.0-0.2); Basophils % 1.1 %; Eosinophils # 0.4 K/mcL (0.0-0.6); Eosinophils % 6.3 %; Hematocrit 39.5 % (37.5-50.1); Hemoglobin 12.1 g/dL (12.9-16.9); Immature Granulocytes % 3.4 % (0-4); Lymphocytes # 2.5 K/mcL (0.6-4.6); Lymphocytes % 39.9 %; Mean Corpuscular HGB Conc 30.6 g/dL (31.6-35.5); Mean Corpuscular Hemoglobin 25.6 pg (28.0-33.3); Mean Corpuscular Volume 83.7 fL (83.0-100.0); Monocytes # 0.8 K/mcL (0.0-1.3); Monocytes % 13.1 %; Neutrophils # 2.2 K/mcL (1.6-8.9); Platelet Count 179 K/mcL (140-400); Red Blood Count 4.72 M/mcL (4.19-5.50); Red Cell Distribution Width 13.4 % (11.5-14.5); Segmented Neutrophils % 36.2 %; White Blood Count 6.2 K/mcL (4.3-11.1)
[2020-11-19] MEDS: Morphine Sulfate 2 MG/ML SYRINGE IVP PRN ×5 (03:13→19:43)
[2020-11-19 03:34] LABS: BUN/Creatinine Ratio 13 (6-26); Blood Urea Nitrogen 11 mg/dL (6-20); Calcium 8.3 mg/dL (8.6-10.3); Carbon Dioxide 29 mEq/L (23-29); Chloride 108 mEq/L (98-107); Glucose 90 mg/dL (70-105); Magnesium 1.7 mg/dL (1.6-2.6); Osmolality,Calculated 295 (280-300); Potassium 4.2 mEq/L (3.5-5.1); Sodium 143 mEq/L (136-145); eGFR For African Americans > 60 (> 60); eGFR For Non-African Americans > 60 (> 60)
[2020-11-19] MEDS: *HR* Heparin 5,000 UNIT/ML VIAL SQ SCH ×3 (05:45→23:11)
[2020-11-19] MEDS: Gabapentin 400 MG CAPSULE PO SCH ×3 (07:24→23:09)
[2020-11-19] MEDS: Aspirin Enteric Coated 81 MG Tablet PO SCH (07:24)
[2020-11-19] MEDS: Piperacillin/Tazobactam 3.375 GM in 0.9 % Sodium Chloride Mini Bag 100 ML IVPB SCH ×3 (07:25→23:11)
[2020-11-19] MEDS: Sennosides/Docusate Sodium TABLET PO SCH ×2 (12:42→23:10)
[2020-11-19] MEDS: polyethylene glycoL 3350 17 GM POWD.PACK PO SCH (12:42)
[2020-11-19] MEDS: Ondansetron 4 MG/2 ML VIAL IVP PRN (12:42)
[2020-11-19] MEDS: Acetaminophen 325 MG TABLET PO PRN (15:33)
[2020-11-20] MEDS: Morphine Sulfate 2 MG/ML SYRINGE IVP PRN ×6 (00:32→22:05)
[2020-11-20] MEDS: Vancomycin 2,000 MG/520 ML IV.SOLN IVPB SCH (00:33)
[2020-11-20 01:05] LABS: Basophils # 0.1 K/mcL (0.0-0.2); Basophils % 1.1 %; Eosinophils # 0.4 K/mcL (0.0-0.6); Eosinophils % 6.2 %; Hematocrit 39.7 % (37.5-50.1); Hemoglobin 12.2 g/dL (12.9-16.9); Lymphocytes # 2.2 K/mcL (0.6-4.6); Lymphocytes % 32.6 %; Mean Corpuscular HGB Conc 30.7 g/dL (31.6-35.5); Mean Corpuscular Hemoglobin 25.7 pg (28.0-33.3); Mean Corpuscular Volume 83.8 fL (83.0-100.0); Mean Platelet Volume 9.3 fL (9.4-12.4); Monocytes # 0.9 K/mcL (0.0-1.3); Monocytes % 14.1 %; Neutrophils # 2.8 K/mcL (1.6-8.9); Platelet Count 183 K/mcL (140-400); Red Blood Count 4.74 M/mcL (4.19-5.50); Red Cell Distribution Width 13.7 % (11.5-14.5); White Blood Count 6.6 K/mcL (4.3-11.1)
[2020-11-20 01:24] LABS: BUN/Creatinine Ratio 17 (6-26); Blood Urea Nitrogen 13 mg/dL (6-20); Calcium 8.6 mg/dL (8.6-10.3); Carbon Dioxide 26 mEq/L (23-29); Chloride 105 mEq/L (98-107); Glucose 102 mg/dL (70-105); Magnesium 1.9 mg/dL (1.6-2.6); Osmolality,Calculated 288 (280-300); Potassium 3.7 mEq/L (3.5-5.1); Sodium 139 mEq/L (136-145); eGFR For African Americans > 60 (> 60); eGFR For Non-African Americans > 60 (> 60)
[2020-11-20] MEDS: *HR* Heparin 5,000 UNIT/ML VIAL SQ SCH ×3 (05:22→20:41)
[2020-11-20] MEDS ORDERED: Gadolinium Contrast Agent (WT Based) IV PRN (07:55)
[2020-11-20] MEDS: Sennosides/Docusate Sodium TABLET PO SCH ×2 (08:00→20:47)
[2020-11-20] MEDS: Ondansetron 4 MG/2 ML VIAL IVP PRN ×2 (08:00→20:58)
[2020-11-20] MEDS: polyethylene glycoL 3350 17 GM POWD.PACK PO SCH (08:00)
[2020-11-20] MEDS: Piperacillin/Tazobactam 3.375 GM in 0.9 % Sodium Chloride Mini Bag 100 ML IVPB SCH ×2 (08:01→15:51)
[2020-11-20] MEDS: Gabapentin 400 MG CAPSULE PO SCH ×3 (08:01→20:48)
[2020-11-20] MEDS: Aspirin Enteric Coated 81 MG Tablet PO SCH (08:01)
[2020-11-20] MEDS ORDERED: Vancomycin 1,750 MG/517.5 ML IV.SOLN IVPB SCH (09:00)
[2020-11-20] MEDS: Vancomycin 1,250 MG/262.5 ML IV.SOLN IVPB SCH ×2 (09:29→20:47)
[2020-11-20] MEDS: Acetaminophen 325 MG TABLET PO PRN (17:58)
[2020-11-20] MEDS ORDERED: hydrOXYzine pamoate 25 MG CAPSULE PO PRN (21:35)
[2020-11-21] MEDS: Piperacillin/Tazobactam 3.375 GM in 0.9 % Sodium Chloride Mini Bag 100 ML IVPB SCH ×2 (00:04→09:08)
[2020-11-21] MEDS: Vancomycin 1,250 MG/262.5 ML IV.SOLN IVPB SCH (04:13)
[2020-11-21] MEDS: Morphine Sulfate 2 MG/ML SYRINGE IVP PRN ×2 (05:04→09:14)
[2020-11-21 06:01] LABS: Basophils # 0.1 K/mcL (0.0-0.2); Basophils % 1.3 %; Eosinophils # 0.3 K/mcL (0.0-0.6); Eosinophils % 4.4 %; Hematocrit 40.7 % (37.5-50.1); Hemoglobin 12.9 g/dL (12.9-16.9); Immature Granulocytes % 5.2 % (0-4); Lymphocytes % 38.8 %; Mean Corpuscular HGB Conc 31.7 g/dL (31.6-35.5); Mean Corpuscular Hemoglobin 26.3 pg (28.0-33.3); Mean Corpuscular Volume 82.9 fL (83.0-100.0); Mean Platelet Volume 8.7 fL (9.4-12.4); Monocytes % 13.2 %; Neutrophils # 2.8 K/mcL (1.6-8.9); Platelet Count 175 K/mcL (140-400); Red Blood Count 4.91 M/mcL (4.19-5.50); Red Cell Distribution Width 13.9 % (11.5-14.5); Segmented Neutrophils % 37.1 %; White Blood Count 7.6 K/mcL (4.3-11.1)
[2020-11-21] MEDS: *HR* Heparin 5,000 UNIT/ML VIAL SQ SCH (06:11)
[2020-11-21 06:18] LABS: BUN/Creatinine Ratio 13 (6-26); Blood Urea Nitrogen 11 mg/dL (6-20); Calcium 8.7 mg/dL (8.6-10.3); Carbon Dioxide 27 mEq/L (23-29); Chloride 109 mEq/L (98-107); Glucose 101 mg/dL (70-105); Osmolality,Calculated 294 (280-300); Potassium 4.2 mEq/L (3.5-5.1); Sodium 142 mEq/L (136-145); eGFR For African Americans > 60 (> 60); eGFR For Non-African Americans > 60 (> 60)
[2020-11-21 06:31] LABS: Reactive Lymphocytes Present (Not Present)
[2020-11-21 06:32] LABS: Platelet Estimate Normal (Normal)
[2020-11-21 06:43] VITALS: BP 118/76
[2020-11-21] MEDS: Sennosides/Docusate Sodium TABLET PO SCH (09:10)
[2020-11-21] MEDS: Gabapentin 400 MG CAPSULE PO SCH (09:10)
[2020-11-21] MEDS: Aspirin Enteric Coated 81 MG Tablet PO SCH (09:10)
[2020-11-21] MEDS: polyethylene glycoL 3350 17 GM POWD.PACK PO SCH (09:11)
[2020-11-21] MEDS ORDERED: Vancomycin 1,500 MG/265 ML IV.SOLN IVPB SCH (14:00)
== END 2020-11-21 11:33 | disposition home or self-care (01) | DRG 383 ==
LOC: EMEROOARM 14:30 → 3ANU 14:30 → SUATTDRO 19:08 → 3ANU 20:08
PROVIDERS: ADMIT Internal Medicine; ATTEND Pharmacist